=== PATIENT | male | born 1965 | race Caucasian/White ===

== ENCOUNTER 2016-11-22 18:42 | Outpatient (CLI) | payer MEDICAID | END 2016-11-22 18:43 | disposition critical access hospital (66) | DX: R53.1 Weakness (principal); R11.2 Nausea with vomiting, unspecified; R19.5 Other fecal abnormalities; M54.2 Cervicalgia | CPT/HCPCS: A0425; A0427 ==

== ENCOUNTER 2016-11-22 18:47 | Inpatient (IN) | payer MEDICAID ==
[2016-11-22] MEDS ORDERED: PANTOPRAZOLE 40 MG VIAL IVP STA ×2 (19:12→19:59)
[2016-11-22] MEDS ORDERED: SODIUM CHLORIDE 0.9% 1,000 ML IV ONE (19:12)
[2016-11-22] MEDS ORDERED: PANTOPRAZOLE 40 MG VIAL ONE ×2 (19:15→20:09)
[2016-11-22 19:21] LABS: BASOPHILS % (AUTO) 0.3 %; EOSINOPHILS # (AUTO) 0.1 10^3/uL (0.0-0.7); HCT - HEMATOCRIT 28.3 % (42.0-52.0); HGB - HEMOGLOBIN 9.6 g/dL (14.0-18.0); LYMPHOCYTES % (AUTO) 22.4 %; MEAN CORPUSCULAR HEMOGLOBIN 31.1 pg (27.0-31.0); MEAN CORPUSCULAR HGB CONC 34.1 g/dL (32.0-36.0); MEAN CORPUSCULAR VOLUME 91.2 fL (80.0-94.0); MEAN PLATELET VOLUME 7.6 fL (7.4-11.4); MONOCYTES # (AUTO) 0.7 10^3/uL (0.0-1.0); MONOCYTES % (AUTO) 7.5 %; NEUTROPHILS # (AUTO) 6.1 10^3/uL (1.5-6.6); NEUTROPHILS % (AUTO) 68.8 %; RED CELL DISTRIBUTION WIDTH 12.6 % (12.0-15.0); UNCORRECTED WHITE BLOOD COUNT 8.8 x10^3/uL; WHITE BLOOD COUNT 8.8 x10^3/uL (4.8-10.8)
[2016-11-22 19:32] LABS: INR 1.2 (0.8-1.2); PT - PROTHROMBIN TIME 13.9 secs (9.9-12.6)
--- NOTE | 2016-11-22 19:33 | ED Physician Documentation ---
History of Present Illness - Stated complaint Stated Complaint: HEMATEMESIS - Chief complaint Chief Complaint: General - History obtained from History obtained from: Patient, EMS, Police - History of Present Illness Timing: Other (He has a history of IV drug abuse but not alcohol abuse or known liver disease. He had melena 2 days ago and today had coffee-ground emesis with diffuse abdominal pain. Feels like a burning. No history of ulcer or GI bleeding or abdominal surgeries.) Review of Systems Ten Systems: 10 systems reviewed and negative Constitutional: denies: Fever, Chills Throat: denies: Dental pain / toothache, Sore throat Cardiac: denies: Chest pain / pressure, Palpitations Respiratory: denies: Dyspnea, Cough PD PAST MEDICAL HISTORY - Past Medical History Past Medical History: Yes Psych: Depression - Past Surgical History Past Surgical History: No - Present Medications Home Medications: Ambulatory Orders Medication Instructions Recorded Confirmed Clindamycin [Cleocin] 300 mg PO Q6H 10 Days 07/14/15 FLUoxetine [PROzac] 10 mg PO DAILY 07/14/15 07/14/15 Oxycodone HCl/Acetaminophen 1 - 2 tab PO Q4H PRN #15 tablet 07/14/15 [Percocet 5-325 mg Tablet] - Allergies Allergies/Adverse Reactions: Allergies Allergy/AdvReac Type Severity Reaction Status Date / Time codeine AdvReac Emesis Verified 07/14/15 15:38 - Social History Does the pt smoke?: No Smoking Status: Never smoker Does the pt drink ETOH?: No Does the pt have substance abuse?: No - Family History Family history: reports: Non contributory - Immunizations Immunizations are current?: Yes - POLST Patient has POLST: No PD ED PE NORMAL - Vitals Vital signs reviewed: Yes - General General: Alert and oriented X 3, No acute distress, Other (pale) - HEENT HEENT: PERRL, EOMI - Neck Neck: Supple, no meningeal sign, No bony TTP - Cardiac Cardiac: RRR, No murmur - Respiratory Respiratory: No respiratory distress, Clear bilaterally - Abdomen Abdomen: Normal bowel sounds, Soft, Non tender - Rectal Rectal: Other (no stool in vault, but lube returns guaiac positive) - Derm Derm: Normal color, Warm and dry - Extremities Extremities: No deformity, No tenderness to palpate, No edema, No calf tenderness / cord - Neuro Neuro: Alert and oriented X 3, Normal speech - Psych Psych: Normal mood, Normal affect Results - Vitals Vitals: Vital Signs - 24 hr 11/22/16 11/22/16 18:49 19:24 Temperature 36.8 C Heart Rate 99 96 Respiratory 18 16 Rate Blood Pressure 104/77 112/67 O2 Saturation 100 100 Oxygen O2 Source Room air - EKG (time done) 2026 Rate: Rate (enter#) (89) Rhythm: NSR [place]: Normal Intervals: Normal [place] QRS: Normal Ischemia: Normal ST segments Computer interpretation: Agree with computer - Labs Labs: Laboratory Tests 11/22/16 11/22/16 11/22/16 18:54 18:54 18:54 WBC 8.8 RBC 3.10 L Hgb 9.6 L Hct 28.3 L MCV 91.2 MCH 31.1 H MCHC 34.1 RDW 12.6 Plt Count 229 MPV 7.6 Neut # 6.1 Lymph # 2.0 [place] # 0.7 Eos # 0.1 Baso # 0.0 Absolute Nucleated RBC 0.00 Nucleated RBCs 0.0 PT 13.9 H INR 1.2 Sodium 135 Potassium 4.7 Chloride 103 Carbon Dioxide 22 Anion Gap 10.0 BUN 47 H Creatinine 1.1 Estimated GFR (MDRD) 71 L Glucose 233 H Calcium 7.9 L Total Bilirubin 0.7 AST 152 H ALT 308 H Alkaline Phosphatase 98 Total Protein 5.5 L Albumin 2.9 L Globulin 2.6 Albumin/Globulin Ratio 1.1 Lipase 17 L Blood Type Blood Type Recheck Antibody Screen Crossmatch IS Only 11/22/16 11/22/16 18:54 19:30 WBC RBC Hgb Hct MCV MCH MCHC RDW Plt Count MPV Neut # Lymph # [place] # Eos # Baso # Absolute Nucleated RBC Nucleated RBCs PT INR Sodium Potassium Chloride Carbon Dioxide Anion Gap BUN Creatinine Estimated GFR (MDRD) Glucose Calcium Total Bilirubin AST ALT Alkaline Phosphatase Total Protein Albumin Globulin Albumin/Globulin Ratio Lipase Blood Type A POSITIVE Blood Type Recheck A POSITIVE Antibody Screen NEGATIVE Crossmatch IS Only See Detail PD MEDICAL DECISION MAKING - ED course ED course: 51yo male with UGI bleed. Hemodynamics ok on arrival, Hgb 9.6. Spoke with Dr Solorzano who will consult. Call to the night hospitalist at [phone]. Departure - Departure Disposition: 66 [facility] DC/Xfer Clinical Impression: Upper GI bleed Condition: Serious
[2016-11-22 19:47] LABS: ALBUMIN/GLOBULIN RATIO 1.1 (1.0-2.2); BILIRUBIN,TOTAL 0.7 mg/dL (0.2-1.0); CREATININE 1.1 mg/dL (0.6-1.2); TOTAL PROTEIN 5.5 g/dL (6.7-8.2)
[2016-11-22 19:48] LABS: CALCIUM 7.9 mg/dL (8.5-10.3); POTASSIUM 4.7 mmol/L (3.5-5.0)
[2016-11-22] MEDS ORDERED: PANTOPRAZOLE 80 MG in SODIUM CHLORIDE 0.9% 100ML 100 ML IV STA (19:59)
[2016-11-22] MEDS ORDERED: HYDROmorphone 1 MG/ML SYRINGE IVP STA (20:09)
[2016-11-22] MEDS ORDERED: ONDANSETRON 4 MG/2 ML VIAL IVP STA (20:09)
[2016-11-22] MEDS ORDERED: ALBUTEROL NEB 2.5 MG/3 ML INH PRN (20:16)
[2016-11-22] MEDS ORDERED: ONDANSETRON 4 MG/2 ML VIAL IVP PRN (20:16)
[2016-11-22] MEDS ORDERED: MORPHINE 2 MG/ML SYRINGE IVP PRN (20:16)
[2016-11-22] MEDS ORDERED: PHYTONADIONE 10 MG/ML AMP SUBQ SCH (20:27)
[2016-11-22 21:22] LABS: HEMOGLOBIN A1C 0.47 g/dL
[2016-11-22] MEDS: SODIUM CHLORIDE 0.9% 1,000 ML IV SCH (22:30)
[2016-11-23] MEDS: PANTOPRAZOLE 80 MG in SODIUM CHLORIDE 0.9% 100ML 100 ML IV SCH ×2 (00:08→06:14)
[2016-11-23] MEDS: INSULIN REGULAR HUMAN 100 UNIT/1 ML 10 ML MDV SUBQ SCH ×4 (00:09→18:14)
[2016-11-23] MEDS: SODIUM CHLORIDE FLUSH 0.9% 10 ML SYRINGE IVP SCH ×4 (00:11→21:23)
[2016-11-23 01:12] LABS: BILIRUBIN,URINE NEGATIVE (NEGATIVE)
[2016-11-23 01:14] LABS: UA CHARGE (STRIP ONLY) YES; UR CULTURE IF IND NOT INDICATED
[2016-11-23 05:56] LABS: BASOPHILS # (AUTO) 0.1 10^3/uL (0.0-0.1); BASOPHILS % (AUTO) 0.5 %; EOSINOPHILS % (AUTO) 0.3 %; HCT - HEMATOCRIT 23.5 % (42.0-52.0); LYMPHOCYTES # (AUTO) 2.2 10^3/uL (1.5-3.5); LYMPHOCYTES % (AUTO) 21.1 %; MEAN CORPUSCULAR HGB CONC 34.2 g/dL (32.0-36.0); MEAN CORPUSCULAR VOLUME 90.8 fL (80.0-94.0); MEAN PLATELET VOLUME 7.3 fL (7.4-11.4); MONOCYTES # (AUTO) 0.7 10^3/uL (0.0-1.0); MONOCYTES % (AUTO) 6.2 %; NEUTROPHILS # (AUTO) 7.6 10^3/uL (1.5-6.6); NEUTROPHILS % (AUTO) 71.9 %; RED BLOOD COUNT 2.59 10^6/uL (4.70-6.10); RED CELL DISTRIBUTION WIDTH 12.6 % (12.0-15.0); UNCORRECTED WHITE BLOOD COUNT 10.6 x10^3/uL; WHITE BLOOD COUNT 10.6 x10^3/uL (4.8-10.8)
[2016-11-23 06:20] LABS: ALBUMIN/GLOBULIN RATIO 1.2 (1.0-2.2); BILIRUBIN,TOTAL 0.8 mg/dL (0.2-1.0); CALCIUM 7.8 mg/dL (8.5-10.3); CREATININE 0.8 mg/dL (0.6-1.2); POTASSIUM 4.4 mmol/L (3.5-5.0); TOTAL PROTEIN 5.3 g/dL (6.7-8.2)
[2016-11-23] MEDS: SODIUM CHLORIDE 0.9% 1,000 ML IV SCH ×3 (06:42→21:23)
[2016-11-23] MEDS: LORazepam 2 MG/ML SYRINGE IVP PRN ×3 (10:28→21:23)
[2016-11-23] MEDS ORDERED: LIDOCAINE-MPF 2% 5 ML VIAL IM ONE (10:30)
[2016-11-23] MEDS ORDERED: MIDAZOLAM 2 MG/2 ML VIAL IVP ONE (10:30)
[2016-11-23] MEDS ORDERED: PROPOFOL 200 MG/20 ML VIAL IVP ONE (10:30)
[2016-11-23] MEDS ORDERED: BENZOCAINE/TETRACAINE/BUTAMBEN SPRAY 56 GM TOP ONE (10:40)
[2016-11-23] MEDS ORDERED: SODIUM CHLORIDE 0.9% 1,000 ML IV ONE (10:45)
--- NOTE | 2016-11-23 11:14 | Ultrasound Preliminary Report ---
Exam: US Abdomen Complete IMPRESSION: Upper normal size echogenic liver consistent with fatty infiltration. Questionable lobular mass 6.2 cm in diameter in the caudate lobe, new from earlier study. CT or MRI s can of the abdomen without and with IV contrast, liver mass protocol, recommended for further assessm ent. Remainder of the visualized abdomen unremarkable. [facility] SITE ID: [id number]
--- NOTE | 2016-11-23 11:17 | Ultrasound Report ---
EXAM: ABDOMEN ULTRASOUND EXAM DATE: 11/23/2016 08:05 AM. CLINICAL HISTORY: Elevated liver function tests in a 51-year-old male. COMPARISON: 10/30/2006. TECHNIQUE: Real-time scanning was performed with static images obtained. FINDINGS: Liver: Diffusely moderately echogenic liver consistent with fatty infiltration. Small benign-appearin g 6 mm cyst in the left lobe. Questionable enlarged caudate lobe with possible mass 4.9 x 3.6 x 6.2 c m. Upper normal size at 16.5 cm. Main portal vein flow: Hepatopetal. Gallbladder: Normal. No stones, wall thickening, or sonographic Kuhn's sign. Biliary System: Common bile duct measures 4.8 mm. No intrahepatic or extrahepatic ductal dilatation. Pancreas: Visualized portion is unremarkable. Kidneys: Right: 10.1 cm longitudinally. Normal. No contour-deforming mass, stones, or hydronephrosis. Left: 13.1 cm longitudinally. Normal. Duplicated collecting system, a normal variant, accounting for increased size. No contour-deforming mass, stones, or hydronephrosis. Spleen: 9.3 cm. Normal in size and echotexture. Aorta and Inferior Vena Cava: Unremarkable. Other: No free fluid or lymphadenopathy. IMPRESSION: Upper normal size echogenic liver consistent with fatty infiltration. Questionable lobular mass 6.2 cm in diameter in the caudate lobe, new from earlier study. CT or MRI s can of the abdomen without and with IV contrast, liver mass protocol, recommended for further assessm ent. Remainder of the visualized abdomen unremarkable. [facility] Referring Provider Line: [phone] SITE ID: [id number]
[2016-11-23] MEDS ORDERED: PANTOPRAZOLE 80 MG in SODIUM CHLORIDE 0.9% 100ML 100 ML IV SCH (16:00)
--- NOTE | 2016-11-23 16:16 | PROVIDER PROGRESS NOTE ---
Assessment/Plan - Problem List (1) Upper GI bleed Assessment/Plan: He has not had further hematemesis or melana. He had an EGD this am. (2) Anemia associated with acute blood loss Assessment/Plan: He is getting two units of PRBCs this afternoon. (3) Duodenitis hemorrhagic Assessment/Plan: EGD showed nonbleeding duodenitis. It is the most likely site. added Carafate to the regimen - Current Meds Current Meds: Current Medications Generic Name Dose Route Start Last Admin Trade Name Freq PRN Reason Stop Dose Admin Sodium Chloride 1,000 mls @ 125 mls/hr 11/22/16 21:00 11/23/16 13:54 Normal Saline 0.9% IV 125 mls/hr .Q8H ELIAS Administration Insulin Human Regular 1 - 5 unit 11/23/16 00:00 11/23/16 12:07 Novolin R SUBQ Not Given Q6HR ELIAS Protocol Lorazepam 1 mg 11/23/16 09:17 11/23/16 15:27 Ativan Inj IVP 1 mg Q4HR PRN Administration Anxiety Sodium Chloride 10 ml 11/22/16 22:00 11/23/16 09:41 Normal Saline Flush 0.9% IVP 10 ml Q8HR ELIAS Administration - Lab Result Fish Bone Diagrams: 11/23/16 13:25 11/23/16 05:45 - Additional Planning My Orders: My Active Orders 11/23/16 09:17 Transfuse RBCs Leukoreduced [RC] ONCE LORazepam INJ [Ativan Inj] 1 mg IVP Q4HR PRN 11/23/16 16:00 Sucralfate [Carafate] 1 gm PO 0700,1100,1600,2200 11/23/16 Dinner Soft (Low Fiber) Diet [DIET] 11/24/16 05:00 CBC - COMP BLD CT W/AUTO DIFF [HEME] DAILYLAB COMPREHENSIVE METABOLIC PANEL [CHEM] DAILYLAB 11/25/16 05:00 CBC - COMP BLD CT W/AUTO DIFF [HEME] DAILYLAB COMPREHENSIVE METABOLIC PANEL [CHEM] DAILYLAB 11/26/16 05:00 CBC - COMP BLD CT W/AUTO DIFF [HEME] DAILYLAB COMPREHENSIVE METABOLIC PANEL [CHEM] DAILYLAB Subjective - Subjective Patient Reports: Feeling Better, Resting Comfortably Nursing Reports: No Complaints Objective Vital Signs: Vital Signs - 24 hr 11/22/16 11/22/16 11/22/16 20:30 21:00 22:00 Temperature 97.5 C H 37.1 C Heart Rate 91 Heart Rate [ 100 100 Apical] Respiratory 16 20 18 Rate Blood Pressure 110/66 Blood Pressure 121/66 127/61 [Right Brachial artery] O2 Saturation 99 99 99 11/22/16 11/23/16 11/23/16 23:00 00:00 01:00 Temperature 37 C Heart Rate Heart Rate [ 94 96 92 Apical] Respiratory 18 18 16 Rate Blood Pressure Blood Pressure 132/65 H 121/59 L 125/65 [Right Brachial artery] O2 Saturation 99 11/23/16 11/23/16 11/23/16 02:00 03:00 04:00 Temperature Heart Rate Heart Rate [ 96 94 84 Apical] Respiratory 16 15 8 L Rate Blood Pressure Blood Pressure 120/70 120/70 113/61 [Right Brachial artery] O2 Saturation 98 11/23/16 11/23/16 11/23/16 05:00 06:00 07:00 Temperature Heart Rate Heart Rate [ 75 82 84 Apical] Respiratory 16 8 L 18 Rate Blood Pressure Blood Pressure 132/67 H 131/64 H 116/66 [Right Brachial artery] O2 Saturation 98 11/23/16 11/23/16 11/23/16 08:00 09:00 10:00 Temperature 37.3 C Heart Rate Heart Rate [ 88 88 80 Apical] Respiratory 15 15 18 Rate Blood Pressure Blood Pressure 128/59 L 137/85 H 117/67 [Right Brachial artery] O2 Saturation 99 91 L 98 11/23/16 11/23/16 11/23/16 12:00 13:00 14:00 Temperature 37.2 C Heart Rate Heart Rate [ 76 76 77 Apical] Respiratory 24 17 19 Rate Blood Pressure Blood Pressure 105/62 106/57 L 100/57 L [Right Brachial artery] O2 Saturation 99 98 92 11/23/16 15:00 Temperature Heart Rate Heart Rate [ 87 Apical] Respiratory 24 Rate Blood Pressure Blood Pressure 110/56 L [Right Brachial artery] O2 Saturation 97 Oxygen O2 Source Room air I&O (Last 24 Hrs): Intake and Output Totals x24h 11/21/16 11/22/16 11/23/16 23:59 23:59 23:59 Intake Total 270 1720 Output Total 1175 Balance 270 545 General: Alert, Oriented x3, Cooperative HEENT: PERRLA, EOMI Neck: No JVD, No thyromegaly Neuro: Alert, Oriented Times 3 Cardiovascular: Regular rate, No murmurs Respiratory: Chest non-tender, No respiratory distress, Breath sounds nml, Wheezes Abdomen: Normal bowel sounds, Soft, No tenderness Skin: No rashes, No breakdown - Results Results: Laboratory Results WBC 10.6 x10^3/uL (4.8-10.8) 11/23/16 05:45 RBC 2.59 10^6/uL (4.70-6.10) L 11/23/16 05:45 Hgb 8.0 g/dL (14.0-18.0) L 11/23/16 05:45 Hct 25.2 % (42.0-52.0) L 11/23/16 13:25 MCV 90.8 fL (80.0-94.0) 11/23/16 05:45 MCH 31.0 pg (27.0-31.0) 11/23/16 05:45 MCHC 34.2 g/dL (32.0-36.0) 11/23/16 05:45 RDW 12.6 % (12.0-15.0) 11/23/16 05:45 Plt Count 195 10^3/uL (130-450) 11/23/16 05:45 MPV 7.3 fL (7.4-11.4) L 11/23/16 05:45 Neut # 7.6 10^3/uL (1.5-6.6) H 11/23/16 05:45 Lymph # 2.2 10^3/uL (1.5-3.5) 11/23/16 05:45 [place] # 0.7 10^3/uL (0.0-1.0) 11/23/16 05:45 Eos # 0.0 10^3/uL (0.0-0.7) 11/23/16 05:45 Baso # 0.1 10^3/uL (0.0-0.1) 11/23/16 05:45 Absolute Nucleated RBC 0.00 x10^3/uL 11/23/16 05:45 Nucleated RBCs 0.0 /100WBC 11/23/16 05:45 PT 13.9 secs (9.9-12.6) H 11/22/16 18:54 INR 1.2 (0.8-1.2) 11/22/16 18:54 Sodium 138 mmol/L (135-145) 11/23/16 05:45 Potassium 4.4 mmol/L (3.5-5.0) 11/23/16 05:45 Chloride 108 mmol/L (101-111) 11/23/16 05:45 Carbon Dioxide 24 mmol/L (21-32) 11/23/16 05:45 Anion Gap 6.0 (6-13) 11/23/16 05:45 BUN 35 mg/dL (6-20) H 11/23/16 05:45 Creatinine 0.8 mg/dL (0.6-1.2) 11/23/16 05:45 Estimated GFR (MDRD) 102 (>89) 11/23/16 05:45 Glucose 113 mg/dL (70-100) H 11/23/16 05:45 Glycated Hemoglobin 6.5 % (4.6-6.2) H 11/22/16 18:50 Estim Average Glucose 140 (70-100) H 11/22/16 18:50 Calcium 7.8 mg/dL (8.5-10.3) L 11/23/16 05:45 Total Bilirubin 0.8 mg/dL (0.2-1.0) 11/23/16 05:45 AST 114 IU/L (10-42) H 11/23/16 05:45 ALT 270 IU/L (10-60) H 11/23/16 05:45 Alkaline Phosphatase 88 IU/L (42-121) 11/23/16 05:45 Troponin I < 0.04 ng/mL (<0.49) 11/22/16 20:45 Total Protein 5.3 g/dL (6.7-8.2) L 11/23/16 05:45 Albumin 2.9 g/dL (3.2-5.5) L 11/23/16 05:45 Globulin 2.4 g/dL (2.1-4.2) 11/23/16 05:45 Albumin/Globulin Ratio 1.2 (1.0-2.2) 11/23/16 05:45 Lipase 17 U/L (22-51) L 11/22/16 18:54 Urine Color YELLOW 11/23/16 01:00 Urine Clarity CLEAR (CLEAR) 11/23/16 01:00 Urine pH 6.0 PH (5.0-7.5) 11/23/16 01:00 Ur Specific [place] 1.020 (1.002-1.030) 11/23/16 01:00 Urine Protein NEGATIVE mg/dL (NEGATIVE) 11/23/16 01:00 Urine Glucose (UA) NEGATIVE mg/dL (NEGATIVE) 11/23/16 01:00 Urine Ketones NEGATIVE mg/dL (NEGATIVE) 11/23/16 01:00 Urine Occult Blood NEGATIVE (NEGATIVE) 11/23/16 01:00 Urine Nitrite NEGATIVE (NEGATIVE) 11/23/16 01:00 Urine Bilirubin NEGATIVE (NEGATIVE) 11/23/16 01:00 Urine Urobilinogen 0.2 (NORMAL) E.U./dL (NORMAL) 11/23/16 01:00 Ur Leukocyte Esterase NEGATIVE (NEGATIVE) 11/23/16 01:00 Ur Microscopic Review NOT INDICATED 11/23/16 01:00 Urine Culture Comments NOT INDICATED 11/23/16 01:00 Blood Type A POSITIVE 11/22/16 18:54 Blood Type Recheck A POSITIVE 11/22/16 19:30 Antibody Screen NEGATIVE 11/22/16 18:54 Crossmatch IS Only See Detail 11/22/16 18:54
[2016-11-23] MEDS: SUCRALFATE 1 GM/10 ML UDC PO SCH ×2 (16:24→21:23)
[2016-11-23 20:18] LABS: HCT - HEMATOCRIT 24.4 % (42.0-52.0); HGB - HEMOGLOBIN 8.3 g/dL (14.0-18.0); MEAN CORPUSCULAR HEMOGLOBIN 30.5 pg (27.0-31.0); MEAN CORPUSCULAR VOLUME 89.7 fL (80.0-94.0); RED BLOOD COUNT 2.72 10^6/uL (4.70-6.10); RED CELL DISTRIBUTION WIDTH 13.6 % (12.0-15.0); WHITE BLOOD COUNT 15.8 x10^3/uL (4.8-10.8)
[2016-11-23] MEDS: PANTOPRAZOLE 40 MG TABLET PO SCH (21:23)
--- NOTE | 2016-11-24 02:59 | HISTORY & PHYSICAL EXAMINATION ---
DATE OF ADMISSION: 11/22/2016 PRIMARY CARE PROVIDER: RIGO Nuno CHIEF COMPLAINT: Black tarry stool and vomiting coffee grounds-like material. HISTORY OF PRESENT ILLNESS: This is a 51-year-old male who is currently in [facility] over the past 2 months and has had 2 days of melena, approximately 1-2 stools daily, and also had today coffee-cary und emesis x2. He denies any chest pain, denies any shortness of breath; does admit to upper abdomin al pain today and notes no prior history of similar. He apparently has used IV methamphetamine in e past but not currently, and denies alcohol, but per report that ER got, patient does use alcohol, i n the past, but did not go through any alcohol withdrawal while in custodial. Of note, his hematocrit upon admission here is 28.3, hemoglobin 9.6; do not have any labs for compari son; and of note, his glucose is 233, total bilirubin is 0.7, AST 152, ALT 308, alkaline phosphatase 98. INR is 1.2. PT 13.9. PAST MEDICAL HISTORY 1. History of IV methamphetamine abuse. 2. History of depression. MEDICATIONS UPON ADMISSION: Fluoxetine 10 mg p.o. daily. ALLERGIES: CODEINE, CAUSES EMESIS. HABITS SMOKING: Never. ALCOHOL: Patient denies, although again, per half-way report, patient does have a history of alcohol i ngestion. FAMILY MEDICAL HISTORY: No history of diabetes or coronary artery disease. REVIEW OF SYSTEMS: Patient is unaware of having history of viral hepatitis; not aware that he has be en checked. Denies any fevers or chills. Denies cough. All other review of systems are negative ex cept as in HPI. PHYSICAL EXAMINATION VITAL SIGNS: Temperature is afebrile. Heart rate is 91. Blood pressure 110/66. Respiratory rate i s 16. Room air sat 99%. CONSTITUTIONAL: A middle-aged male who appears older than his stated age. HEENT: Head normocephalic, atraumatic. Mouth: Poor dentition. NECK: No adenopathy. Carotids 2+/4 without bruits. CHEST: Clear to auscultation. COR: Regular rate and rhythm. S1, S2 without murmur. ABDOMEN: Soft. There is tenderness over the epigastrium down to just above the umbilicus. No rebou nd, no guarding. Bowel sounds are present. EXTREMITIES: Exam reveals no pedal edema. SKIN: No rashes. PSYCHOLOGIC: Mood and affect are appropriate. NEUROLOGIC: Alert and oriented x3. Motor strength is intact bilaterally. STUDIES Labs as above, also to include EKG, pending; troponin, pending; viral hepatitis panel, pending. Sodium 135, potassium 4.7, chloride 103, bicarb 22, BUN 47, creatinine 1.1, calculated GFR 71, glucos e 233, calcium 7.9, total bilirubin 0.7, AST 152, ALT 308, alkaline phosphatase 98, total protein 5.5 , albumin 2.9, lipase 17. White count 8.8, hemoglobin 9.6, hematocrit 28.3, MCV 91.2. Platelets 229 with neutrophils 6.1. UA: Pending at time of this dictation. ASSESSMENT AND PLAN 1. Upper gastrointestinal bleed, acute, present on admission. Check serial hematocrits, 2 large-bor e IVs. Patient has been typed and crossed per emergency room MD. We will also give vitamin K, altho ugh INR is in the normal range but toward the higher end. General Surgery is notified regarding this patient by ER MD, placed on IV Protonix drip. Patient was given a bolus of Protonix in the emergenc y room. 2. Elevated LFTs, question chronicity, present on admission. We will go ahead and check viral hepat itis panel, check abdominal ultrasound. It is the weekend, so we will not be able to get records fro m the pending sale to [facility]. 3. Deep venous thrombosis prophylaxis. We will use SCDs and, given GI bleed, we will not give subcu taneous anticoagulant. 4. Code status: Patient is FULL CODE. Time spent 60 minutes. JOB #: [id number] EXT JOB #:[id number]
--- NOTE | 2016-11-24 04:36 | CONSULTATION NOTE ---
DATE OF CONSULTATION: 11/23/2016 00:00:00 REASON FOR CONSULTATION: Gastrointestinal bleed. HISTORY OF PRESENT ILLNESS: This is a 51-year-old gentleman who presents to the emergency department from [facility] for hematemesis. He states that approximately 3 days ago, he noticed dark, tarry stools and began feeling lightheaded and was told he had the flu. He had difficulty keeping food down and vomited a tray of potatoes and then had a syncopal episode while trying to have a bowel movement. When he woke up, he felt nauseous and had a subsequent episode of coffee-ground emesis. He was subsequently brought to the emergency department. Upon evaluation in the emergency department, he was noted to be hemodynamically stable with a heart rate of 75 and a systolic blood pressure of 132. His hemoglobin and hematocrit were noted to be 9.6 and 28.3. A stool guaiac was performed, which was positive. He was subsequently admitted to the ICU by the Medical Service. Serial H and H's have been performed, and this morning his H and H is now 8.0/23.5. Upon my evaluation of the patient, he is a poor historian, although he does tell me that for the past 2-3 years, he has had difficulty swallowing steak and rice and feels like it gets stuck in the distal part of his esophagus. He denies any dysphagia to liquids. He also complains of odynophagia with these types of solids. He states that he was a heavy drinker in the past, for approximately 5 years, and had alcohol dependence, but for the past year he has not had any alcohol. He does also have a history of substance abuse. Currently he is incarcerated and has been incarcerated for the past month. He denies any NSAID abuse. He denies any history of GERD symptoms. To his knowledge, he has never had an EGD or colectomy. PAST MEDICAL HISTORY Significant for: 1. Anxiety. 2. Depression. PAST SURGICAL HISTORY: None. HOME MEDICATIONS 1. Sildenafil 20 mg p.o. daily. 2. Paxil 40 mg p.o. daily. ALLERGIES TO MEDICATIONS: CODEINE. SOCIAL HISTORY: The patient is currently incarcerated. He denies tobacco use. He has a history of alcohol abuse as stated, as well as substance abuse. PHYSICAL EXAMINATION VITAL SIGNS: Temperature is 37.3, blood pressure 137/85, heart rate of 88, respiratory rate 15, O2 saturation is 91% on room air. His BMI is 27.4. GENERAL: He is awake, alert, oriented x3, in no acute distress. He is of average build. CARDIOVASCULAR: Regular rate and rhythm. CHEST: Clear to auscultation bilaterally with no rhonchi or wheezing. ABDOMEN: Soft, nondistended, and nontender to palpation. EXTREMITIES: Not edematous, and well perfused. He does appear slightly pale. LABORATORY VALUES: White blood cell count is 10.6, hemoglobin 8.0, hematocrit 23.5, platelets 195. INR 1.2. Sodium 138, potassium 4.4, chloride 108, bicarb 24, BUN 35, creatinine 0.8. Total bilirubin 0.8, AST 114, ALT 270, alk phos 88 , albumin 2.9. ASSESSMENT: This is a 51-year-old male with likely an upper gastrointestinal bleed. PLAN: The patient will be transfused 2 units of packed red blood cells and will also subsequently be taken to the operating room under MAC sedation for an esophagogastroduodenoscopy. Differential diagnoses of his GI bleed include, but are not limited to esophageal cancer, Maira-Tejada tear, gastritis, or peptic ulcer disease. The procedure and risks involved were explained to the patient, including but not limited to bleeding and perforation. He understands all the above and agrees to proceed with the procedure. JOB #: [id number] EXT JOB #:[id number] WILLIAM
[2016-11-24] MEDS: SODIUM CHLORIDE 0.9% 1,000 ML IV SCH (05:30)
[2016-11-24 05:35] LABS: BASOPHILS % (AUTO) 0.3 %; EOSINOPHILS # (AUTO) 0.3 10^3/uL (0.0-0.7); EOSINOPHILS % (AUTO) 2.4 %; HCT - HEMATOCRIT 21.4 % (42.0-52.0); HGB - HEMOGLOBIN 7.3 g/dL (14.0-18.0); LYMPHOCYTES # (AUTO) 2.3 10^3/uL (1.5-3.5); LYMPHOCYTES % (AUTO) 20.5 %; MEAN CORPUSCULAR HEMOGLOBIN 30.3 pg (27.0-31.0); MEAN CORPUSCULAR HGB CONC 34.2 g/dL (32.0-36.0); MEAN CORPUSCULAR VOLUME 88.8 fL (80.0-94.0); MEAN PLATELET VOLUME 6.9 fL (7.4-11.4); MONOCYTES # (AUTO) 0.8 10^3/uL (0.0-1.0); MONOCYTES % (AUTO) 7.2 %; NEUTROPHILS # (AUTO) 7.8 10^3/uL (1.5-6.6); NEUTROPHILS % (AUTO) 69.6 %; RED BLOOD COUNT 2.42 10^6/uL (4.70-6.10); RED CELL DISTRIBUTION WIDTH 13.4 % (12.0-15.0); UNCORRECTED WHITE BLOOD COUNT 11.2 x10^3/uL; WHITE BLOOD COUNT 11.2 x10^3/uL (4.8-10.8)
[2016-11-24 05:44] LABS: BILIRUBIN,TOTAL 0.4 mg/dL (0.2-1.0); CALCIUM 7.7 mg/dL (8.5-10.3); CREATININE 0.8 mg/dL (0.6-1.2); TOTAL PROTEIN 4.7 g/dL (6.7-8.2)
[2016-11-24] MEDS: SUCRALFATE 1 GM/10 ML UDC PO SCH ×4 (06:34→21:32)
[2016-11-24] MEDS: SODIUM CHLORIDE FLUSH 0.9% 10 ML SYRINGE IVP SCH ×3 (06:34→21:32)
[2016-11-24] MEDS: INSULIN ASPART 300 UNIT/3 ML PEN SUBQ SCH ×4 (07:34→20:40)
--- NOTE | 2016-11-24 08:35 | PROVIDER PROGRESS NOTE ---
Assessment/Plan - Problem List (1) Upper GI bleed Assessment/Plan: EGd showed only non bleeding duodenitis. However he has lost further blood and again needs 2 units of blood. He will also get FFP (2) Anemia associated with acute blood loss Assessment/Plan: See above discussion. Will give 2 additional units of PRBCs. (3) Duodenitis hemorrhagic Assessment/Plan: He is on Protonix and Carafate. Will continue to monitor. - Current Meds Current Meds: Current Medications Generic Name Dose Route Start Last Admin Trade Name Freq PRN Reason Stop Dose Admin Insulin Aspart 1 - 5 unit 11/24/16 08:00 11/24/16 07:34 Novolog SUBQ Not Given 0800,1200,1700,2100 ELIAS Protocol Lorazepam 1 mg 11/23/16 09:17 11/23/16 21:23 Ativan Inj IVP 1 mg Q4HR PRN Administration Anxiety Pantoprazole Sodium 40 mg 11/23/16 21:00 11/23/16 21:23 Protonix PO 40 mg BID ELIAS Administration Sodium Chloride 10 ml 11/22/16 22:00 11/24/16 06:34 Normal Saline Flush 0.9% IVP 10 ml Q8HR ELIAS Administration Sucralfate 1 gm 11/23/16 16:00 11/24/16 06:34 Carafate PO 1 gm 0700,1100,1600,2200 ELIAS Administration - Lab Result Fish Bone Diagrams: 11/24/16 05:25 11/24/16 05:25 - Additional Planning My Orders: My Active Orders 11/23/16 09:17 Transfuse RBCs Leukoreduced [RC] ONCE LORazepam INJ [Ativan Inj] 1 mg IVP Q4HR PRN 11/23/16 16:00 Sucralfate [Carafate] 1 gm PO 0700,1100,1600,2200 11/23/16 21:00 Pantoprazole [Protonix] 40 mg PO BID 11/23/16 Dinner Soft (Low Fiber) Diet [DIET] 11/24/16 07:15 Transfuse RBCs Leukoreduced [RC] ONCE 11/24/16 07:55 Vital Signs [RC] Q8HR 11/25/16 05:00 CBC - COMP BLD CT W/AUTO DIFF [HEME] DAILYLAB COMPREHENSIVE METABOLIC PANEL [CHEM] DAILYLAB 11/26/16 05:00 CBC - COMP BLD CT W/AUTO DIFF [HEME] DAILYLAB COMPREHENSIVE METABOLIC PANEL [CHEM] DAILYLAB Subjective - Subjective Patient Reports: Feeling Better, Resting Comfortably, No Complaints Nursing Reports: No Complaints Objective Vital Signs: Vital Signs - 24 hr 11/23/16 11/23/16 11/23/16 09:00 10:00 12:00 Temperature 37.2 C Heart Rate [ 88 80 76 Apical] Respiratory 15 18 24 Rate Blood Pressure [Left Brachial artery] Blood Pressure 137/85 H 117/67 105/62 [Right Brachial artery] O2 Saturation 91 L 98 99 11/23/16 11/23/16 11/23/16 13:00 14:00 15:00 Temperature Heart Rate [ 76 77 87 Apical] Respiratory 17 19 24 Rate Blood Pressure [Left Brachial artery] Blood Pressure 106/57 L 100/57 L 110/56 L [Right Brachial artery] O2 Saturation 98 92 97 11/23/16 11/23/16 11/23/16 16:00 17:00 18:00 Temperature 37.1 C Heart Rate [ 98 111 H 114 H Apical] Respiratory 22 20 24 Rate Blood Pressure [Left Brachial artery] Blood Pressure 101/70 93/59 L 101/49 L [Right Brachial artery] O2 Saturation 100 97 100 11/23/16 11/23/16 11/23/16 19:00 19:24 20:00 Temperature 37.5 C Heart Rate [ 72 105 H 105 H Apical] Respiratory 20 21 20 Rate Blood Pressure [Left Brachial artery] Blood Pressure 90/68 98/55 L 114/53 L [Right Brachial artery] O2 Saturation 98 97 98 11/23/16 11/23/16 11/23/16 21:00 22:00 23:00 Temperature Heart Rate [ 92 103 H 93 Apical] Respiratory 18 20 18 Rate Blood Pressure [Left Brachial artery] Blood Pressure 101/57 L 99/56 L 106/51 L [Right Brachial artery] O2 Saturation 98 98 97 11/24/16 11/24/16 11/24/16 00:00 01:00 02:00 Temperature 37.0 C Heart Rate [ 87 89 83 Apical] Respiratory 27 H 23 23 Rate Blood Pressure 108/54 L 97/47 L 91/55 L [Left Brachial artery] Blood Pressure [Right Brachial artery] O2 Saturation 97 11/24/16 11/24/16 11/24/16 03:00 03:54 05:00 Temperature 36.9 C Heart Rate [ 79 87 76 Apical] Respiratory 25 H 17 21 Rate Blood Pressure 94/54 L 103/61 97/57 L [Left Brachial artery] Blood Pressure [Right Brachial artery] O2 Saturation 99 11/24/16 11/24/16 11/24/16 06:00 07:00 08:00 Temperature 37.2 C Heart Rate [ 87 75 88 Apical] Respiratory 27 H 11 L 18 Rate Blood Pressure 104/58 L 108/62 111/66 [Left Brachial artery] Blood Pressure [Right Brachial artery] O2 Saturation 97 Oxygen O2 Source Room air I&O (Last 24 Hrs): Intake and Output Totals x24h 11/22/16 11/23/16 11/24/16 23:59 23:59 23:59 Intake Total 270 3300 2080 Output Total 2300 1375 Balance 270 1000 705 General: Alert, Oriented x3, Cooperative HEENT: PERRLA, EOMI Neck: No JVD, No thyromegaly Neuro: Alert, Oriented Times 3 Cardiovascular: Regular rate, No murmurs Respiratory: Chest non-tender, No respiratory distress, Breath sounds nml Abdomen: Normal bowel sounds, No tenderness Extremities: No cyanosis, No edema Skin: No rashes, No breakdown - Results Results: Laboratory Results WBC 11.2 x10^3/uL (4.8-10.8) H 11/24/16 05:25 RBC 2.42 10^6/uL (4.70-6.10) L 11/24/16 05:25 Hgb 7.3 g/dL (14.0-18.0) L 11/24/16 05:25 Hct 21.4 % (42.0-52.0) L 11/24/16 05:25 MCV 88.8 fL (80.0-94.0) 11/24/16 05:25 MCH 30.3 pg (27.0-31.0) 11/24/16 05:25 MCHC 34.2 g/dL (32.0-36.0) 11/24/16 05:25 RDW 13.4 % (12.0-15.0) 11/24/16 05:25 Plt Count 131 10^3/uL (130-450) 11/24/16 05:25 MPV 6.9 fL (7.4-11.4) L 11/24/16 05:25 Neut # 7.8 10^3/uL (1.5-6.6) H 11/24/16 05:25 Lymph # 2.3 10^3/uL (1.5-3.5) 11/24/16 05:25 [place] # 0.8 10^3/uL (0.0-1.0) 11/24/16 05:25 Eos # 0.3 10^3/uL (0.0-0.7) 11/24/16 05:25 Baso # 0.0 10^3/uL (0.0-0.1) 11/24/16 05:25 Absolute Nucleated RBC 0.01 x10^3/uL 11/24/16 05:25 Nucleated RBCs 0.0 /100WBC 11/24/16 05:25 PT 13.9 secs (9.9-12.6) H 11/22/16 18:54 INR 1.2 (0.8-1.2) 11/22/16 18:54 Sodium 136 mmol/L (135-145) 11/24/16 05:25 Potassium 4.0 mmol/L (3.5-5.0) 11/24/16 05:25 Chloride 108 mmol/L (101-111) 11/24/16 05:25 Carbon Dioxide 24 mmol/L (21-32) 11/24/16 05:25 Anion Gap 4.0 (6-13) L 11/24/16 05:25 BUN 21 mg/dL (6-20) H 11/24/16 05:25 Creatinine 0.8 mg/dL (0.6-1.2) 11/24/16 05:25 Estimated GFR (MDRD) 102 (>89) 11/24/16 05:25 Glucose 117 mg/dL (70-100) H 11/24/16 05:25 Glycated Hemoglobin 6.5 % (4.6-6.2) H 11/22/16 18:50 Estim Average Glucose 140 (70-100) H 11/22/16 18:50 Calcium 7.7 mg/dL (8.5-10.3) L 11/24/16 05:25 Total Bilirubin 0.4 mg/dL (0.2-1.0) 11/24/16 05:25 AST 78 IU/L (10-42) H 11/24/16 05:25 ALT 186 IU/L (10-60) H 11/24/16 05:25 Alkaline Phosphatase 64 IU/L (42-121) 11/24/16 05:25 Troponin I < 0.04 ng/mL (<0.49) 11/22/16 20:45 Total Protein 4.7 g/dL (6.7-8.2) L 11/24/16 05:25 Albumin 2.4 g/dL (3.2-5.5) L 11/24/16 05:25 Globulin 2.3 g/dL (2.1-4.2) 11/24/16 05:25 Albumin/Globulin Ratio 1.0 (1.0-2.2) 11/24/16 05:25 Lipase 17 U/L (22-51) L 11/22/16 18:54 Urine Color YELLOW 11/23/16 01:00 Urine Clarity CLEAR (CLEAR) 11/23/16 01:00 Urine pH 6.0 PH (5.0-7.5) 11/23/16 01:00 Ur Specific [place] 1.020 (1.002-1.030) 11/23/16 01:00 Urine Protein NEGATIVE mg/dL (NEGATIVE) 11/23/16 01:00 Urine Glucose (UA) NEGATIVE mg/dL (NEGATIVE) 11/23/16 01:00 Urine Ketones NEGATIVE mg/dL (NEGATIVE) 11/23/16 01:00 Urine Occult Blood NEGATIVE (NEGATIVE) 11/23/16 01:00 Urine Nitrite NEGATIVE (NEGATIVE) 11/23/16 01:00 Urine Bilirubin NEGATIVE (NEGATIVE) 11/23/16 01:00 Urine Urobilinogen 0.2 (NORMAL) E.U./dL (NORMAL) 11/23/16 01:00 Ur Leukocyte Esterase NEGATIVE (NEGATIVE) 11/23/16 01:00 Ur Microscopic Review NOT INDICATED 11/23/16 01:00 Urine Culture Comments NOT INDICATED 11/23/16 01:00 Blood Type A POSITIVE 11/22/16 18:54 Blood Type Recheck A POSITIVE 11/22/16 19:30 Antibody Screen NEGATIVE 11/22/16 18:54 Crossmatch IS Only See Detail 11/22/16 18:54
[2016-11-24] MEDS: PANTOPRAZOLE 40 MG TABLET PO SCH ×2 (08:38→21:32)
[2016-11-24] MEDS: LORazepam 2 MG/ML SYRINGE IVP PRN ×4 (08:39→21:32)
[2016-11-24] MEDS: SODIUM CHLORIDE FLUSH 0.9% 10 ML SYRINGE IVP PRN ×2 (10:41→12:35)
[2016-11-24] MEDS ORDERED: PARoxetine 10 MG TABLET PO ONE (16:00)
[2016-11-24 16:12] LABS: HGB - HEMOGLOBIN 9.4 g/dL (14.0-18.0); MEAN CORPUSCULAR HEMOGLOBIN 30.8 pg (27.0-31.0); MEAN CORPUSCULAR HGB CONC 34.9 g/dL (32.0-36.0); MEAN CORPUSCULAR VOLUME 88.2 fL (80.0-94.0); MEAN PLATELET VOLUME 6.7 fL (7.4-11.4); RED BLOOD COUNT 3.06 10^6/uL (4.70-6.10); RED CELL DISTRIBUTION WIDTH 13.3 % (12.0-15.0); WHITE BLOOD COUNT 9.8 x10^3/uL (4.8-10.8)
[2016-11-24] MEDS ORDERED: PARoxetine 10 MG TABLET ONE (17:19)
[2016-11-25 04:48] LABS: BASOPHILS # (AUTO) 0.1 10^3/uL (0.0-0.1); BASOPHILS % (AUTO) 0.7 %; EOSINOPHILS # (AUTO) 0.4 10^3/uL (0.0-0.7); EOSINOPHILS % (AUTO) 4.1 %; HCT - HEMATOCRIT 29.1 % (42.0-52.0); LYMPHOCYTES % (AUTO) 21.7 %; MEAN CORPUSCULAR HEMOGLOBIN 30.7 pg (27.0-31.0); MEAN CORPUSCULAR HGB CONC 34.6 g/dL (32.0-36.0); MONOCYTES # (AUTO) 0.6 10^3/uL (0.0-1.0); MONOCYTES % (AUTO) 6.5 %; NEUTROPHILS # (AUTO) 6.3 10^3/uL (1.5-6.6); NUCLEATED RED BLOOD CELLS AUTO 0.1 /100WBC; RED BLOOD COUNT 3.27 10^6/uL (4.70-6.10); RED CELL DISTRIBUTION WIDTH 13.4 % (12.0-15.0); UNCORRECTED WHITE BLOOD COUNT 9.4 x10^3/uL; WHITE BLOOD COUNT 9.4 x10^3/uL (4.8-10.8)
[2016-11-25 05:00] LABS: ALBUMIN/GLOBULIN RATIO 1.1 (1.0-2.2); BILIRUBIN,TOTAL 0.4 mg/dL (0.2-1.0); CALCIUM 8.3 mg/dL (8.5-10.3); CREATININE 0.9 mg/dL (0.6-1.2); POTASSIUM 3.6 mmol/L (3.5-5.0); TOTAL PROTEIN 5.6 g/dL (6.7-8.2)
[2016-11-25 06:41] LABS: MAGNESIUM 1.7 mg/dL (1.7-2.8); PHOSPHORUS 4.1 mg/dL (2.5-4.6)
[2016-11-25] MEDS: SUCRALFATE 1 GM/10 ML UDC PO SCH (06:42)
[2016-11-25] MEDS: SODIUM CHLORIDE FLUSH 0.9% 10 ML SYRINGE IVP SCH (06:43)
--- NOTE | 2016-11-25 06:47 | Discharge Plan ---
Discharge Plan Disposition: Home, Self Care Condition: Good Prescriptions: Sucralfate [Carafate] 1 gm PO QID #120 tablet Pantoprazole [Protonix] 40 mg PO BID #60 tablet Diet: Diabetic Activity Restrictions: Activity as Tolerated Shower Restrictions: No Driving Restrictions: No Weight Bearing: Full Weight Additional Instructions or Follow Up instructions: Rasheed. It is important for you to eat more salads and fresh vegetables and some fruit. You need to loose 15 pounds over the next 6 months and maintain that new weight. The quality of your life going forward depends on better diet and exercise with you having the diabetes. Make an appt to see Elsa Gamez your PCP in the next 1-2 weeks. You need to make an appt to see Dr. Solorzano in hte next 6 weeks for a follow up for your Stomach condition. Enjoy each day. Thank you, Dr Shree Cheng Smoking: If you smoke, Please STOP! Call for help. Follow-up with: Elsa Gamez ARNP [Credentialed Staff Provider] - 1 Week ANTONIO SOLORZANO MD [Provider Admit Priv/Credential] - 6 Weeks
[2016-11-25] MEDS: LORazepam 2 MG/ML SYRINGE IVP PRN (07:32)
[2016-11-25 07:37] VITALS: BP 135/82
[2016-11-25] MEDS ORDERED: PARoxetine 10 MG TABLET PO SCH (09:00)
--- NOTE | 2016-11-25 18:08 | DISCHARGE SUMMARY ---
DATE OF ADMISSION: 11/22/2016 DATE OF DISCHARGE: 11/25/2016 PRIMARY CARE PROVIDER: RIGO Nuno. ADMISSION DIAGNOSES: 1. Epigastric intestinal bleed, acute. 2. Elevated liver enzymes. DISCHARGE DIAGNOSES: 1. Duodenitis with bleeding. 2. Epigastrium intestinal bleed secondary to #1. 3. Hepatitis improved. 4. Anxiety and depression. 5. Anemia secondary to acute bleeding present on admission, status post 4 units packed red cells. 6. New onset diabetes type 2 present on admission. HOSPITAL COURSE: The patient's initial presentation, emergency department evaluation and hospitalist plan are well described in the History and Physical, see copy of same. SUMMARY: This is a 51-year-old male who has been residing in the [facility] skilled nursing for the last 2 months, h ad today some melena and had coffee ground emesis x2. He had no chest pain, shortness of breath, but did have upper abdominal pain. The patient has a history of IV methamphetamine use and depression and he is seen in the emergency department and found to be positive for hemoccult of stool and had a hem oglobin and hematocrit of 9 and 28. The patient is also noted to have a glucose of 233 and he is admi tted to the hospital. SPECIAL PROCEDURES: The patient had an EGD done, see results of operative report. CONSULTATIONS: He had a consultation from Dr. Solorzano, see copy of the same. HOSPITAL COURSE AND MANAGEMENT: The patient the next morning had dropped his hemoglobin and hematocri t sufficiently to require 2 units of packed red cells, especially since he was having his EGD the ris k was high for continued or recurrent bleeding. The patient did not have an appropriate rise in his hemoglobin and hematocrit with the 2 units, and the next morning was lower than he had been. On the m orning of the EGD he received 2 more units of packed red cells on that day and held his hemoglobin an d hematocrit that evening and the next day without difficulty. He had no more pain, no more emesis, n o more melena. DISCHARGE EXAMINATION: VITAL SIGNS: 36.8, 73, 135/62, 19, 96% room air saturation. HEENT: Eyes: EOM's within normal limits. PERRLA. Nonicteric. Mouth and throat: Moist mucous membranes . Very poor dentition. Otherwise no abnormalities in mouth or pharynx. NECK: Supple, nontender, no lymphadenopathy, no thyromegaly. No tracheal deviation, and no bruits or JVD. CHEST: The patient's chest wall was nontender and symmetric. HEART: Normal sinus rhythm. No murmurs, rubs, or clicks. LUNGS: Clear. Good air movement bilaterally. ABDOMEN: Soft, nontender, bowel sounds are present. No hepatosplenomegaly appreciated. VASCULAR EXAM: He has got 1+ pulses through the posterior tibial bilaterally. NEURO: Cognitive intact. Cranial nerves intact. Motor intact. LABORATORY DATA: The patient has a white count of 9.8, 10 and 29.1 hemoglobin and hematocrit with elizabeth telets of 153, sodium 140, potassium 3.6, chloride 102, CO2 27, BUN 14, creatinine 0.9, glucose 138. His calcium was 8.3 and albumin was 2.9. DISCHARGE INSTRUCTIONS: ALLERGIES: CODEINE. His medications to go home are: 1. Sildenafil 20 to 40 mg daily as needed. 2. Paroxetine 40 mg a day. 3. Carafate 1 gram q.i.d. 4. Protonix 40 mg twice a day. The patient is to see Elsa Gamez in the next [address] Solorzano in the next 6 weeks for followu p on his duodenitis and consideration for a repeat EGD. The patient is urged to follow a diabetic t, but he does not take any insulin at this time. The patient is strongly advised to stop his drug ab use, to eat a healthier diet and lose another 15 pounds as he is 200, would be best to be 180 or less . The patient expressed surprise, but acknowledged the reason why. The discharge health issues are: 1. His drug abuse addictive behavior. 2. His diabetes. 3. Duodenitis. 4. Patient may be best as a candidate for a low dose metformin to start while he was making the attem pt to change his diet and lose weight, and then decide about increasing the metformin. The patient wa s not given a Glucometer initially, as his finances are stressed at this point just to get the medica tions. He also has a friend who is taking him for an evaluation for psychological care and addictive behavior services. The patient was examined on the day of discharge. Time spent in counseling the patient and collaborat ion with Case Management, discharge planning, Nursing, was 35 minutes. JOB #: [id number] EXT JOB #:[id number]
== END 2016-11-25 09:36 | disposition home or self-care (01) | DRG 378 ==
LOC: EDUNIT# → ED 18:47 → ICU 20:16 → MS 11-24 09:23
PROVIDERS: ADMIT Specialist; ATTEND Internal Medicine
PROC: 0DB68ZX Excision of Stomach, Via Natural or Artificial Opening Endoscopic, Diagnostic (ICD-10-PCS; 2016-11-23)
PROC: 0DB38ZX Excision of Lower Esophagus, Via Natural or Artificial Opening Endoscopic, Diagnostic (ICD-10-PCS; 2016-11-23)
PROC: 30233N1 Transfusion of Nonautologous Red Blood Cells into Peripheral Vein, Percutaneous Approach (ICD-10-PCS; 2016-11-23)
PROC: 0DB98ZX Excision of Duodenum, Via Natural or Artificial Opening Endoscopic, Diagnostic (ICD-10-PCS; principal; 2016-11-23 10:00)
DX: K29.81 Duodenitis with bleeding (principal); D62 Acute posthemorrhagic anemia; K75.9 Inflammatory liver disease, unspecified; F32.9 Major depressive disorder, single episode, unspecified; F41.9 Anxiety disorder, unspecified; E11.9 Type 2 diabetes mellitus without complications; Z88.5 Allergy status to narcotic agent
CPT/HCPCS: 36415; 76700; 80053; 80074; 81001; 81003; 83036; 83690; 83735; 84100; 84484; 85014; 85025; 85610; 86850; 86900; 86901; 86920; 87086; 87150; 87341; 87522; 88106; 88305; 88342; 93005; 96361; 96365; 96376; 99283; 99284; 99285

== ENCOUNTER 2017-06-24 12:55 | Outpatient (CLI) | payer MEDICAID ==
[2017-06-24 17:37] LABS: BILIRUBIN,URINE NEGATIVE (NEGATIVE); GLUCOSE, URINE (UA) NEGATIVE (NEGATIVE); KETONES,URINE (UA) NEGATIVE (NEGATIVE); LEUKOCYTE ESTERASE, URINE NEGATIVE (NEGATIVE); NITRITE,URINE NEGATIVE (NEGATIVE); OCCULT BLOOD,URINE SMALL (NEGATIVE); PROTEIN,URINE NEGATIVE (NEGATIVE); UROBILINOGEN,URINE 0.2 (NORMAL) E.U./dL (NORMAL)
[2017-06-24 17:43] LABS: CLARITY,URINE CLEAR (CLEAR)
[2017-06-24 18:04] LABS: BACTERIA,URINE None Seen /HPF (None Seen); RBC,URINE 0-5 /HPF (0-5); SQUAMOUS EPITHELIAL CELL,UR RARE Squamous (<= Few)
[2017-06-24 18:12] LABS: BASOPHILS % (AUTO) 0.9 %; EOSINOPHILS # (AUTO) 0.2 10^3/uL (0.0-0.7); EOSINOPHILS % (AUTO) 3.4 %; HGB - HEMOGLOBIN 15.1 g/dL (14.0-18.0); LYMPHOCYTES % (AUTO) 18.8 %; MEAN CORPUSCULAR HEMOGLOBIN 30.8 pg (27.0-31.0); MEAN CORPUSCULAR HGB CONC 33.6 g/dL (32.0-36.0); MEAN CORPUSCULAR VOLUME 91.7 fL (80.0-94.0); MEAN PLATELET VOLUME 7.3 fL (7.4-11.4); MONOCYTES # (AUTO) 0.5 10^3/uL (0.0-1.0); MONOCYTES % (AUTO) 9.9 %; NEUTROPHILS # (AUTO) 3.6 10^3/uL (1.5-6.6); PLT - PLATELET COUNT 226 10^3/uL (130-450); RED CELL DISTRIBUTION WIDTH 13.8 % (12.0-15.0); WHITE BLOOD COUNT 5.4 x10^3/uL (4.8-10.8)
[2017-06-24 19:15] LABS: CREATININE,URINE 110.6 mg/dL; MICROALBUMIN,URINE 6.3 mg/dL (0-300.0)
[2017-06-24 19:52] LABS: % IRON SATURATION 21 % (20-50); ALBUMIN 4.2 g/dL (3.2-5.5); ALBUMIN/GLOBULIN RATIO 1.1 (1.0-2.2); ALKALINE PHOSPHATASE 107 IU/L (42-121); ALT ALANINE AMINOTRANSFERASE 195 IU/L (10-60); AST ASPARTATE AMINOTRANSFERASE 103 IU/L (10-42); BILIRUBIN,TOTAL 0.5 mg/dL (0.2-1.0); BUN - BLOOD UREA NITROGEN 17 mg/dL (6-20); CALCIUM 8.9 mg/dL (8.5-10.3); CARBON DIOXIDE - CO2 28 mmol/L (21-32); CHLORIDE 100 mmol/L (101-111); CHOL/HDL RATIO 3.1 (<5.0); CHOLESTEROL 171 mg/dL; CREATININE 0.9 mg/dL (0.6-1.2); GFR - MDRD 89 (>89); GLUCOSE 97 mg/dL (70-100); HDL CHOLESTEROL 55 mg/dL; IRON 95 ug/dL (45-182); LDL CHOLESTEROL,CALCULATED 106 mg/dL; LDL/HDL RATIO 1.9 (<3.6); SODIUM 138 mmol/L (135-145); TOTAL IRON BINDING CAPACITY 454 ug/dL (250-450); TOTAL PROTEIN 8.2 g/dL (6.7-8.2); TRANSFERRIN 324 mg/dL (180-329); VLDL CHOLESTEROL 10 mg/dL
[2017-06-24 19:53] LABS: HB2 TOTAL 16.9 g/dL; HEMOGLOBIN A1C 0.81 g/dL; HEMOGLOBIN A1C % 6.5 % (4.6-6.2)
[2017-06-25 13:12] LABS: HEPATITIS C ANTIBODY REACTIVE (NON-REACTIVE)
[2017-06-25 13:13] LABS: HEPATITIS B SURFACE ANTIGEN NON-REACTIVE (NON-REACTIVE)
[2017-06-26 15:57] LABS: HCV RNA QNT 6.51 Log IU/mL (NOT DETECTED); HCV RNA QUANT RT PCR 3250000 IU/mL (NOT DETECTED)
== END 2017-06-24 12:56 | disposition home or self-care (01) ==
LOC: LAB.F 12:55
PROVIDERS: ATTEND Nurse Practitioner Family
DX: E11.9 Type 2 diabetes mellitus without complications (principal); R94.5 Abnormal results of liver function studies; Z13.220 Encounter for screening for lipoid disorders; K22.8 Other specified diseases of esophagus
CPT/HCPCS: 36415; 80053; 80061; 81001; 82043; 82570; 83036; 83540; 83721; 84466; 85025; 86317; 86704; 86709; 86803; 87086; 87340

== ENCOUNTER 2018-03-09 15:32 | Outpatient (CLI) | payer MEDICAID ==
[2018-03-09 19:25] LABS: HB2 TOTAL 16.8 g/dL; HEMOGLOBIN A1C 0.83 g/dL; HEMOGLOBIN A1C % 6.7 % (4.6-6.2)
== END 2018-03-09 15:33 ==
LOC: LAB.S 15:32
PROVIDERS: ATTEND Nurse Practitioner Family
DX: E11.9 Type 2 diabetes mellitus without complications (principal)
CPT/HCPCS: 36415; 83036

== ENCOUNTER 2018-05-07 23:13 | Emergency (ER) | payer MEDICAID ==
--- NOTE | 2018-05-07 23:57 | ED Physician Documentation ---
PD HPI ABD PAIN - Stated complaint Stated Complaint: ABD PX - Chief complaint Chief Complaint: Abd Pain - History obtained from History obtained from: Patient - History of Present Illness Timing - onset: How many weeks ago (2) Timing - duration: Weeks (2) Timing - details: Abrupt onset Pain level max: 8 Pain level now: 5 Quality: Pain Location: Periumbilical Radiation: Other (does not radiate) Improved by: Laying still Worsened by: Moving, Palpation Associated symptoms: No: Nausea, Vomiting Similar symptoms before: Has not had sx before Recently seen: Not recently seen - Additional information Additional information: 2 weeks ago patient sustained injury to abdomen when one of the handles of a loaded wheelbarrow struck him in the abdomen. He had immediate pain which improved later that day but has gradually been worsening since the injury. Review of Systems Cardiac: reports: Reviewed and negative Respiratory: reports: Reviewed and negative GI: reports: Abdominal Pain. denies: Abdominal Swelling, Nausea, Vomiting, Constipation, Diarrhea : denies: Dysuria, Hematuria PD PAST MEDICAL HISTORY - Past Medical History Cardiovascular: Hypertension Respiratory: None Endocrine/Autoimmune: Type 2 diabetes GI: GI bleed, Ulcers, Hepatitis : None HEENT: None Psych: Depression, Anxiety, Panic attacks, Post traumatic stress disorder Musculoskeletal: None Derm: None - Past Surgical History Past Surgical History: No - Present Medications Home Medications: Ambulatory Orders Medication Instructions Recorded Confirmed Paroxetine HCl [Paxil] 40 mg PO DAILY 11/23/16 11/23/16 Sildenafil Citrate [Sildenafil] 20 - 40 mg PO DAILY PRN 11/23/16 11/23/16 PARoxetine [Paxil] 40 mg PO DAILY tablet 11/25/16 Pantoprazole [Protonix] 40 mg PO BID #60 tablet 11/25/16 Sucralfate [Carafate] 1 gm PO QID #120 tablet 11/25/16 buPROPion [Wellbutrin Sr] 05/08/18 metFORMIN [Glucophage] 05/08/18 - Allergies Allergies/Adverse Reactions: Allergies Allergy/AdvReac Type Severity Reaction Status Date / Time codeine AdvReac Emesis Verified 05/07/18 23:17 - Social History Does the pt smoke?: No Smoking Status: Never smoker Does the pt drink ETOH?: No ETOH Use: Beer Does the pt have substance abuse?: No Substance Use and Type: Meth - Immunizations Immunizations are current?: Yes - POLST Patient has POLST: No PD ED PE NORMAL - Vitals Vital signs reviewed: Yes - General General: Alert and oriented X 3, No acute distress, Well developed/nourished - Cardiac Cardiac: RRR, No murmur - Respiratory Respiratory: No respiratory distress, Clear bilaterally - Abdomen Abdomen: Soft, Non distended, Other (mild/moderate periumbilical tenderness to palpation without rebound or guarding. no masses, no bruising) - Derm Derm: Normal color, Warm and dry Results - Vitals Vitals: Vital Signs - 24 hr 05/07/18 05/08/18 05/08/18 23:17 01:00 01:52 Temperature 36.8 C Heart Rate 100 72 66 Respiratory 18 18 Rate Blood Pressure 160/96 H 131/72 H O2 Saturation 98 96 96 05/08/18 03:02 Temperature Heart Rate 80 Respiratory 16 Rate Blood Pressure 136/87 H O2 Saturation 100 Oxygen O2 Source Room air - Labs Labs: Laboratory Tests 05/07/18 05/08/18 05/08/18 23:55 00:10 00:10 WBC 7.5 RBC 4.53 L Hgb 14.4 Hct 41.5 L MCV 91.6 MCH 31.9 H MCHC 34.8 RDW 13.7 Plt Count 190 MPV 7.0 L Neut # (Auto) 5.7 Lymph # (Auto) 1.0 L [place] # (Auto) 0.5 Eos # (Auto) 0.2 Baso # (Auto) 0.1 Absolute Nucleated RBC 0.01 Nucleated RBC % 0.1 PT 12.2 INR 1.1 APTT 30.2 Sodium Potassium Chloride Carbon Dioxide Anion Gap BUN Creatinine Estimated GFR (MDRD) Glucose Calcium Total Bilirubin AST ALT Alkaline Phosphatase Total Protein Albumin Globulin Albumin/Globulin Ratio Lipase Urine Color YELLOW Urine Clarity CLEAR Urine pH 6.0 Ur Specific [place] 1.025 Urine Protein NEGATIVE Urine Glucose (UA) >=1000 H Urine Ketones NEGATIVE Urine Occult Blood TRACE-LYSE Urine Nitrite NEGATIVE Urine Bilirubin NEGATIVE Urine Urobilinogen 0.2 (NORMAL) Ur Leukocyte Esterase NEGATIVE Ur Microscopic Review NOT INDICATED Urine Culture Comments NOT INDICATED 05/08/18 00:10 WBC RBC Hgb Hct MCV MCH MCHC RDW Plt Count MPV Neut # (Auto) Lymph # (Auto) [place] # (Auto) Eos # (Auto) Baso # (Auto) Absolute Nucleated RBC Nucleated RBC % PT INR APTT Sodium 139 Potassium 4.3 Chloride 105 Carbon Dioxide 27 Anion Gap 7.0 BUN 17 Creatinine 0.7 Estimated GFR (MDRD) 118 Glucose 270 H Calcium 8.7 Total Bilirubin 0.4 AST 104 H ALT 193 H Alkaline Phosphatase 120 Total Protein 7.5 Albumin 3.7 Globulin 3.8 Albumin/Globulin Ratio 1.0 Lipase 131 H Urine Color Urine Clarity Urine pH Ur Specific [place] Urine Protein Urine Glucose (UA) Urine Ketones Urine Occult Blood Urine Nitrite Urine Bilirubin Urine Urobilinogen Ur Leukocyte Esterase Ur Microscopic Review Urine Culture Comments - Rads (name of study) CT A/P Radiology: Prelim report reviewed, See rad report PD MEDICAL DECISION MAKING - ED course Complexity details: reviewed results, re-evaluated patient, considered differential, d/w patient ED course: Results reviewed with patient, including CT results. I emphasized that he needs to follow-up for the CT findings; specifically that he has abnormal appearance of the lymph nodes in his abdomen. I explained that the differential diagnosis includes lymphoma. Departure - Departure Disposition: 01 Home, Self Care Clinical Impression: Abdominal pain Condition: Good Instructions: ED Abdominal Pain Unkn Cause Male Follow-Up: lEsa Gamez ARNP [Primary Care Provider] - Comments: If you are not already on an acid-blocking medication (such as pepcid, tagamet, nexium, or prilosec), I recommend you start taking prilosec 20mg once per day for 2 weeks. This is available [id number] and thus does not require a prescription. Discharge Date/Time: 05/08/18 03:26
[2018-05-08 00:12] LABS: BILIRUBIN,URINE NEGATIVE (NEGATIVE); GLUCOSE, URINE (UA) >=1000 mg/dL (NEGATIVE); KETONES,URINE (UA) NEGATIVE (NEGATIVE); LEUKOCYTE ESTERASE, URINE NEGATIVE (NEGATIVE); NITRITE,URINE NEGATIVE (NEGATIVE); OCCULT BLOOD,URINE TRACE-LYSE (NEGATIVE); PROTEIN,URINE NEGATIVE (NEGATIVE); UROBILINOGEN,URINE 0.2 (NORMAL) E.U./dL (NORMAL)
[2018-05-08 00:26] LABS: BASOPHILS # (AUTO) 0.1 10^3/uL (0.0-0.1); BASOPHILS % (AUTO) 0.8 %; EOSINOPHILS # (AUTO) 0.2 10^3/uL (0.0-0.7); EOSINOPHILS % (AUTO) 2.6 %; HGB - HEMOGLOBIN 14.4 g/dL (14.0-18.0); LYMPHOCYTES % (AUTO) 13.5 %; MEAN CORPUSCULAR HEMOGLOBIN 31.9 pg (27.0-31.0); MEAN CORPUSCULAR HGB CONC 34.8 g/dL (32.0-36.0); MEAN CORPUSCULAR VOLUME 91.6 fL (80.0-94.0); MONOCYTES # (AUTO) 0.5 10^3/uL (0.0-1.0); MONOCYTES % (AUTO) 6.9 %; NEUTROPHILS # (AUTO) 5.7 10^3/uL (1.5-6.6); NEUTROPHILS % (AUTO) 76.2 %; PLT - PLATELET COUNT 190 10^3/uL (130-450); RED BLOOD COUNT 4.53 10^6/uL (4.70-6.10); RED CELL DISTRIBUTION WIDTH 13.7 % (12.0-15.0); WHITE BLOOD COUNT 7.5 x10^3/uL (4.8-10.8)
[2018-05-08 00:27] LABS: CLARITY,URINE CLEAR (CLEAR)
[2018-05-08 00:36] LABS: INR 1.1 (0.8-1.2); PT - PROTHROMBIN TIME 12.2 secs (9.9-12.6)
[2018-05-08 00:51] LABS: ALBUMIN 3.7 g/dL (3.2-5.5); BILIRUBIN,TOTAL 0.4 mg/dL (0.2-1.0); CALCIUM 8.7 mg/dL (8.5-10.3); CREATININE 0.7 mg/dL (0.6-1.2); TOTAL PROTEIN 7.5 g/dL (6.7-8.2)
[2018-05-08] MEDS ORDERED: IOVERSOL 320 100 ML VIAL IVP ONE (01:08)
--- NOTE | 2018-05-08 02:00 | CT Report ---
Reason: abd. pain after injury Procedure Date: 05/08/2018 Accession Number: [id number] / [id number] Procedure: CT - Abdomen/Pelvis W/ CPT Code: FULL RESULT: EXAM: CT ABDOMEN AND PELVIS EXAM DATE: 05/08/2018 01:31 AM. CLINICAL HISTORY: Abdominal pain after injury. COMPARISONS: ABDOMEN COMPLETE 11/23/2016 7:22 AM. TECHNIQUE: Routine helical CT imaging was performed through the abdomen and pelvis. IV contrast: Yes . Enteric contrast: No . Reconstructions: Coronal and sagittal. In accordance with CT protocol optimization, one or more of the following dose reduction techniques were utilized for this exam: automated exposure control, adjustment of mA and/or KV based on patient size, or use of iterative reconstructive technique. FINDINGS: Lung Bases: Unremarkable. Liver: Scattered tiny hypodensities are statistically benign. No intrahepatic mass seen. Of note, there is mild to moderate portahepatic and upper abdominal/retroperitoneal lymphadenopathy. Largest node is a portahepatic lymph node on image 28 series 3 measuring 48 x 36 mm in cross-section. Gallbladder/Bile Ducts: Unremarkable. Spleen: Unremarkable. Pancreas: Unremarkable. Adrenal Glands: Unremarkable. Kidneys: Unremarkable. No suspicious masses or hydronephrosis. Peritoneal Cavity/Bowel: No bowel obstruction or inflammatory process seen. No free air or significant free fluid. No masses. The appendix is normal. Moderate stool burden. Pelvic Organs: Bladder and prostate appear unremarkable. Vasculature: No aneurysms or other significant abnormality. Bones: No significant abnormality. Other: Please see above for adenopathy. No pelvic adenopathy seen. IMPRESSION: 1. No acute injury seen in the abdomen or pelvis. 2. Mild to moderate upper abdominal adenopathy, worst in the portahepatic region. Distribution raises suspicion of chronic hepatitis as cause but lymphoma not excluded. Close imaging followup (1-3 months) and/or biopsy suggested. 3. Moderate stool burden. Results discussed with Dr. Gray. [facility]
[2018-05-08] MEDS: IOVERSOL 320 100 ML VIAL IVP ONE (02:05)
[2018-05-08 03:03] VITALS: BP 136/87
== END 2018-05-08 03:26 | disposition home or self-care (01) ==
LOC: ED 23:13
DX: R10.9 Unspecified abdominal pain (principal); R93.5 Abnormal findings on diagnostic imaging of other abdominal regions, including retroperitoneum; I10 Essential (primary) hypertension; E11.9 Type 2 diabetes mellitus without complications; Z79.84 Long term (current) use of oral hypoglycemic drugs
CPT/HCPCS: 74177; 80053; 81001; 81003; 83690; 85025; 85610; 85730; 87086; 99283

== ENCOUNTER 2018-05-09 11:16 | Outpatient (CLI) | payer MEDICAID | END 2018-05-09 11:17 | disposition critical access hospital (66) | LOC: EMS 11:16 | PROVIDERS: ATTEND Surgery | DX: R51 Headache (principal) | CPT/HCPCS: A0425; A0429; A0999 ==

== ENCOUNTER 2018-05-09 11:58 | Emergency (ER) | payer MEDICAID ==
[2018-05-09] MEDS ORDERED: diphenhydrAMINE INJ 50 MG/ML VIAL IVP STA (12:16)
[2018-05-09] MEDS ORDERED: SODIUM CHLORIDE 0.9% 1,000 ML IV ONE (12:16)
[2018-05-09] MEDS ORDERED: METOCLOPRAMIDE 10 MG/2 ML VIAL IVP STA (12:16)
--- NOTE | 2018-05-09 12:18 | ED Physician Documentation ---
PD HPI HEADACHE - Stated complaint Stated Complaint: Headache - Chief complaint Chief Complaint: Neuro - History obtained from History obtained from: Patient - History of Present Illness Timing - onset: Other (He was here 2 nights ago for abdominal trauma, for which he got a enhanced abdominal CT which was normal. During the CAT scan with the contrast he got some of the expected side effects, he felt warm but he also developed a gradual onset right-sided headache that got worse over the next day. Is now slightly better. It is behind the right eye. Its associated with light sensitivity, but no nausea, vomiting, fevers, chills, neck stiffness. He does not have a history of any primary headache syndrome. He tried some ibuprofen without relief.) Review of Systems Constitutional: denies: Fever, Chills Eyes: reports: Photophobia. denies: Loss of vision, Decreased vision Nose: denies: Rhinorrhea / runny nose, Congestion GI: reports: Abdominal Pain (Persistent since his last visit but not worsening). denies: Nausea, Vomiting, Constipation, Diarrhea PD PAST MEDICAL HISTORY - Past Medical History Past Medical History: Yes Cardiovascular: Hypertension Respiratory: None Endocrine/Autoimmune: Type 2 diabetes GI: GI bleed, Ulcers, Hepatitis : None HEENT: None Psych: Depression, Anxiety, Panic attacks, Post traumatic stress disorder Musculoskeletal: None Derm: None - Past Surgical History Past Surgical History: No - Present Medications Home Medications: Ambulatory Orders Medication Instructions Recorded Confirmed RX: Paroxetine HCl [Paxil] 40 mg PO DAILY 11/23/16 11/23/16 RX: Sildenafil Citrate [Sildenafil] 20 - 40 mg PO DAILY PRN 11/23/16 11/23/16 RX: PARoxetine [Paxil] 40 mg PO DAILY tablet 11/25/16 RX: Pantoprazole [Protonix] 40 mg PO BID #60 tablet 11/25/16 Sucralfate [Carafate] 1 gm PO QID #120 tablet 11/25/16 RX: metFORMIN [Glucophage] 05/08/18 buPROPion [Wellbutrin Sr] 05/08/18 SUMAtriptan [Imitrex] 25 mg PO BID PRN #10 tablet 05/09/18 - Allergies Allergies/Adverse Reactions: Allergies Allergy/AdvReac Type Severity Reaction Status Date / Time codeine AdvReac Emesis Verified 05/07/18 23:17 - Social History Does the pt smoke?: No Smoking Status: Never smoker Does the pt drink ETOH?: No Does the pt have substance abuse?: No - Immunizations Immunizations are current?: Yes - POLST Patient has POLST: No PD ED PE NORMAL - Vitals Vital signs reviewed: Yes - General General: Alert and oriented X 3, No acute distress - HEENT HEENT: PERRL, EOMI, Other (Light sensitive) - Neck Neck: Supple, no meningeal sign, No bony TTP - Abdomen Abdomen: Non tender - Back Back: No CVA TTP, No spinal TTP - Derm Derm: Normal color, Warm and dry - Neuro Neuro: Alert and oriented X 3, Normal speech - Psych Psych: Normal mood, Normal affect Results - Vitals Vitals: Vital Signs - 24 hr 05/09/18 05/09/18 11:59 13:41 Temperature 36.5 C 36.7 C Heart Rate 65 60 Respiratory 12 18 Rate Blood Pressure 140/97 H 131/88 H O2 Saturation 98 100 Oxygen O2 Source Room air - Labs Labs: Laboratory Tests 05/09/18 12:25 Sodium 135 Potassium 4.2 Chloride 102 Carbon Dioxide 26 Anion Gap 7.0 BUN 13 Creatinine 0.7 Estimated GFR (MDRD) 118 Glucose 150 H Calcium 8.7 PD MEDICAL DECISION MAKING - ED course ED course: 53-year-old gentleman with headache after the administration of IV contrast 2 Days ago which is now improved. He had almost complete improvement after the administration of Reglan and CT imaging was done given the atypical nature of the headache which was unremarked. There is no evidence of meningitis. Departure - Departure Disposition: 01 Home, Self Care Clinical Impression: Headache Condition: Good Record reviewed to determine appropriate education?: Yes Instructions: ED Cephalgia Unspecified Prescriptions: SUMAtriptan [Imitrex] 25 mg PO BID PRN #10 tablet PRN Reason: Headache Comments: Call your doctor to arrange a follow-up appointment, make the next available appointment. In the interim, return anytime if worse or if new symptoms develop. Discharge Date/Time: 05/09/18 13:41
[2018-05-09 12:39] LABS: CALCIUM 8.7 mg/dL (8.5-10.3); CREATININE 0.7 mg/dL (0.6-1.2)
--- NOTE | 2018-05-09 13:25 | CT Report ---
Reason: headache Procedure Date: 05/09/2018 Accession Number: [id number] / [id number] Procedure: CT - Head W/O CPT Code: FULL RESULT: EXAM: CT HEAD EXAM DATE: 05/09/2018 01:05 PM. CLINICAL HISTORY: Headache. COMPARISON: None. TECHNIQUE: Multiaxial CT images were obtained from the foramen magnum to the vertex. Reformats: Sagittal and coronal. IV contrast: None. In accordance with CT protocol optimization, one or more of the following dose reduction techniques were utilized for this exam: automated exposure control, adjustment of mA and/or KV based on patient size, or use of iterative reconstructive technique. FINDINGS: Parenchyma: No intraparenchymal hemorrhage. No evidence of mass, midline shift, or CT findings of infarction. Moreau-white differentiation is distinct. Extraaxial Spaces: Normal for age. No subdural or epidural collections identified. Ventricles: Normal in size and position. Sinuses and Orbits: There is mild mucosal thickening in the ethmoid sinuses. Other sinuses appear clear. Bones: No evidence of fracture or calvarial defect. Other: None. IMPRESSION: 1. Negative for an acute or focal intracranial abnormality. 2. Mild mucosal thickening or chronic inflammatory disease of the ethmoid sinuses. No air-fluid level. RADIA
[2018-05-09 13:41] VITALS: BP 131/88
== END 2018-05-09 13:41 | disposition home or self-care (01) ==
LOC: EDUNIT# → ED 11:58
DX: R51 Headache (principal); I10 Essential (primary) hypertension; E11.9 Type 2 diabetes mellitus without complications; Z79.84 Long term (current) use of oral hypoglycemic drugs; K75.9 Inflammatory liver disease, unspecified
CPT/HCPCS: 36415; 70450; 80048; 96374; 99283; J1200; J2765

== ENCOUNTER 2018-08-05 12:08 | Outpatient (CLI) | payer MEDICAID ==
[2018-08-05 12:34] LABS: CREATININE 0.7 mg/dL (0.6-1.2)
[2018-08-05] MEDS ORDERED: IOPAMIDOL-300 100 ML VIAL ONE (12:45)
[2018-08-05] MEDS ORDERED: IOPAMIDOL-300 100 ML VIAL IVP ONE (14:51)
--- NOTE | 2018-08-05 16:43 | CT Report ---
Reason: LYMPHADENOPATHY Procedure Date: 08/05/2018 Accession Number: [id number] / [id number] Procedure: CT - ABDOMEN W CPT Code: FULL RESULT: EXAM: CT ABDOMEN WITH IV CONTRAST EXAM DATE: 08/05/2018 01:26 PM. CLINICAL HISTORY: Lymphadenopathy. 3 month surveillance imaging requested from prior study. COMPARISON: CT abdomen/pelvis with contrast 05/08/2018. TECHNIQUE: Routine helical CT imaging was performed through the abdomen. IV contrast: Isovue 300, 100 mL Enteric contrast: No. Reconstruction: Coronal and sagittal. In accordance with CT protocol optimization, one or more of the following dose reduction techniques were utilized for this exam: automated exposure control, adjustment of mA and/or KV based on patient size, or use of iterative reconstructive technique. FINDINGS: Lung Bases: Unremarkable. Liver: Stable 4 mm hypodensity high left lobe of liver and an 8 mm similar finding along the anterior liver near capsule, too small to characterize, most likely cysts. No solid or enhancing masses. Gallbladder/Bile Ducts: Unremarkable. Spleen: Normal. An accessory splenule is again noted, series 3 image 16. Pancreas: Normal. Adrenal Glands: Normal. Kidneys: Normal. No masses or hydronephrosis. Peritoneal Cavity/Bowel: There is a stable pattern of upper abdominal/retroperitoneal adenopathy with greatest involvement in the periportal location. 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 There is stable adenopathy noted extending towards the splenic hilum in the periaortic and interaortocaval stations, with a few smaller nodes extending into the mesenteric root. The portal vein is not narrowed although there is narrowing of the right renal vein from compression by dominant stephy conglomerate. The visualized bowel is within expected limits. There is no free air or free fluid. Vasculature: No aneurysms or other significant abnormality. Bones: No significant abnormality. Other: None. 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 RADIA
== END 2018-08-05 12:09 | disposition home or self-care (01) ==
LOC: LAB 12:08 → DI 12:09
PROVIDERS: ATTEND Nurse Practitioner Family
DX: R59.1 Generalized enlarged lymph nodes (principal); E11.9 Type 2 diabetes mellitus without complications
CPT/HCPCS: 36415; 74160; 82565; Q9967

== ENCOUNTER 2018-09-14 11:54 | Outpatient (CLI) | payer MEDICAID ==
[2018-09-14 18:15] LABS: BASOPHILS # (AUTO) 0.1 10^3/uL (0.0-0.1); BASOPHILS % (AUTO) 1.1 %; EOSINOPHILS # (AUTO) 0.2 10^3/uL (0.0-0.7); EOSINOPHILS % (AUTO) 3.3 %; HGB - HEMOGLOBIN 14.3 g/dL (14.0-18.0); LYMPHOCYTES % (AUTO) 22.7 %; MEAN CORPUSCULAR HEMOGLOBIN 30.8 pg (27.0-31.0); MEAN CORPUSCULAR HGB CONC 33.2 g/dL (32.0-36.0); MEAN CORPUSCULAR VOLUME 92.8 fL (80.0-94.0); MEAN PLATELET VOLUME 7.5 fL (7.4-11.4); MONOCYTES # (AUTO) 0.3 10^3/uL (0.0-1.0); MONOCYTES % (AUTO) 7.2 %; NEUTROPHILS % (AUTO) 65.7 %; PLT - PLATELET COUNT 188 10^3/uL (130-450); RED BLOOD COUNT 4.64 10^6/uL (4.70-6.10); RED CELL DISTRIBUTION WIDTH 13.8 % (12.0-15.0); WHITE BLOOD COUNT 4.6 x10^3/uL (4.8-10.8)
[2018-09-14 18:58] LABS: ALBUMIN/GLOBULIN RATIO 1.1 (1.0-2.2); ALKALINE PHOSPHATASE 99 IU/L (42-121); ALT ALANINE AMINOTRANSFERASE 119 IU/L (10-60); AST ASPARTATE AMINOTRANSFERASE 66 IU/L (10-42); BILIRUBIN,TOTAL 0.6 mg/dL (0.2-1.0); BUN - BLOOD UREA NITROGEN 20 mg/dL (6-20); CALCIUM 8.8 mg/dL (8.5-10.3); CARBON DIOXIDE - CO2 28 mmol/L (21-32); CHLORIDE 104 mmol/L (101-111); CHOL/HDL RATIO 2.6 (<5.0); CHOLESTEROL 140 mg/dL; CREATININE 0.8 mg/dL (0.6-1.2); GFR - MDRD 101 (>89); GLUCOSE 109 mg/dL (70-100); HDL CHOLESTEROL 54 mg/dL; SODIUM 140 mmol/L (135-145); TOTAL PROTEIN 7.7 g/dL (6.7-8.2)
[2018-09-14 19:44] LABS: LDL CHOLESTEROL,DIRECT 76 mg/dL; LDLD/HDL RATIO 1.4 (<3.6)
[2018-09-14 19:50] LABS: HB2 TOTAL 15.3 g/dL; HEMOGLOBIN A1C 0.58 g/dL; HEMOGLOBIN A1C % 5.6 % (4.6-6.2)
[2018-09-15 12:57] LABS: HEPATITIS C ANTIBODY REACTIVE (NON-REACTIVE)
[2018-09-15 15:12] LABS: HEPATITIS B SURFACE ANTIGEN NON-REACTIVE (NON-REACTIVE)
[2018-09-16 16:06] LABS: HCV RNA QNT 5.18 Log IU/mL (NOT DETECTED); HCV RNA QUANT RT PCR 153000 IU/mL (NOT DETECTED)
== END 2018-09-14 23:59 | disposition home or self-care (01) ==
LOC: LAB.S 11:54
PROVIDERS: ATTEND Nurse Practitioner Family
DX: E11.9 Type 2 diabetes mellitus without complications (principal); B19.20 Unspecified viral hepatitis C without hepatic coma; Z12.5 Encounter for screening for malignant neoplasm of prostate; Z13.220 Encounter for screening for lipoid disorders
CPT/HCPCS: 36415; 80050; 80061; 83036; 83721; 84153; 85610; 86317; 86704; 86709; 86803; 87340

== ENCOUNTER 2018-10-30 20:23 | Emergency (ER) | payer MEDICAID ==
[2018-10-30] MEDS ORDERED: PROPARACAINE 0.5% OPHTH DROPS 15 ML EACHEYE STA (21:46)
[2018-10-30] MEDS ORDERED: POLYMYXIN B/TRIMETH OPHTH DROPS EACHEYE STA (21:46)
--- NOTE | 2018-10-30 21:54 | ED Physician Documentation ---
PD HPI OPHTHO - Stated complaint Stated Complaint: EYE PX/WEEPING - Chief complaint Chief Complaint: Heent - History obtained from History obtained from: Patient - History of Present Illness Timing - onset: Yesterday Timing - duration: Days (2) Timing - details: Gradual onset Pain level max: 3 Pain level now: 3 Location: Both Quality / character: Burning, Aching Associated symptoms: Redness, Tearing, Discharge (yellow) Contributing factors: Other (states was working with dirt and dirty water yesterday.). No: Exposed to conjunctivitis, Recent URI, FB, UV light (welding etc), Chemical exposure, acid, Chemical exposure, base, Blunt trauma, Penetrating trauma, Irrigated THREAD SPOOLER, Wears glasses, Wears contacts, Work related Recently seen: Not recently seen Review of Systems Constitutional: denies: Fever, Chills GI: denies: Vomiting, Diarrhea Skin: denies: Rash Musculoskeletal: denies: Neck pain, Back pain Neurologic: denies: Headache PD PAST MEDICAL HISTORY - Past Medical History Cardiovascular: Hypertension Respiratory: None Neuro: None Endocrine/Autoimmune: Type 2 diabetes GI: GI bleed, Ulcers, Hepatitis : None HEENT: None Psych: Depression, Anxiety, Panic attacks, Post traumatic stress disorder Musculoskeletal: None Derm: None - Past Surgical History Past Surgical History: No - Present Medications Home Medications: Ambulatory Orders Medication Instructions Recorded Confirmed Paroxetine HCl [Paxil] 40 mg PO DAILY 11/23/16 11/23/16 Sildenafil Citrate [Sildenafil] 20 - 40 mg PO DAILY PRN 11/23/16 11/23/16 PARoxetine [Paxil] 40 mg PO DAILY tablet 11/25/16 Pantoprazole [Protonix] 40 mg PO BID #60 tablet 11/25/16 Sucralfate [Carafate] 1 gm PO QID #120 tablet 11/25/16 buPROPion [Wellbutrin Sr] 05/08/18 metFORMIN [Glucophage] 05/08/18 SUMAtriptan [Imitrex] 25 mg PO BID PRN #10 tablet 05/09/18 Polymyxin B/Trimeth Ophth Drop 1 drops EACHEYE Q3H 7 Days #1 10/30/18 [Polytrim Ophth Drops] bottle - Allergies Allergies/Adverse Reactions: Allergies Allergy/AdvReac Type Severity Reaction Status Date / Time codeine AdvReac Emesis Verified 05/07/18 23:17 - Social History Does the pt smoke?: No Smoking Status: Never smoker Does the pt drink ETOH?: No Does the pt have substance abuse?: No - Immunizations Immunizations are current?: Yes - POLST Patient has POLST: No PD ED PE NORMAL - Vitals Vital signs reviewed: Yes - General General: Alert and oriented X 3, No acute distress, Well developed/nourished - HEENT HEENT: PERRL, Moist mucous membranes, Other (Bilateral conjunctivae are injected. No fluorescein uptake. No visible foreign bodies. Eyelids were everted. ) - Derm Derm: Warm and dry - Neuro Neuro: Alert and oriented X 3 - Psych Psych: Normal mood, Normal affect Results - Vitals Vitals: Oxygen O2 Source Room air PD MEDICAL DECISION MAKING - ED course Complexity details: considered differential, d/w patient ED course: 53-year-old male with bilateral conjunctivitis. Will place on ophthalmic antibiotics and follow-up with his doctor. Patient is well-appearing, nontoxic. Afebrile. No evidence of foreign body or corneal abrasion. Patient counseled regarding signs and symptoms for which I believe and urgent re-evaluation would be necessary. Patient with good understanding of and agreement to plan and is comfortable going home at this time This document was made in part using voice recognition software. While efforts are made to proofread this document, sound alike and grammatical errors may occur. Departure - Departure Disposition: 01 Home, Self Care Clinical Impression: Bilateral conjunctivitis Qualifiers: Conjunctivitis type: acute Acute conjunctivitis type: bacterial Qualified Code(s): H10.33 - Unspecified acute conjunctivitis, bilateral Condition: Good Instructions: ED Conjunctivitis Bacterial Follow-Up: Your,doctor in 1 week [Other] Roman Johnson MD [Provider Admit Priv/Credential] - Prescriptions: Polymyxin B/Trimeth Ophth Drop [Polytrim Ophth Drops] 1 drops EACHEYE Q3H 7 Days #1 bottle Comments: Use the eyedrops as prescribed. Return if you worsen. Follow-up with your doctor for further care. This should improve in the next 2 to 3 days. Discharge Date/Time: 10/30/18 22:14
[2018-10-30 22:14] VITALS: BP 162/99
== END 2018-10-30 22:14 | disposition home or self-care (01) ==
LOC: ED 20:23
DX: H10.33 Unspecified acute conjunctivitis, bilateral (principal); I10 Essential (primary) hypertension; E11.9 Type 2 diabetes mellitus without complications; Z79.84 Long term (current) use of oral hypoglycemic drugs
CPT/HCPCS: 99283; A9270; J3490

== ENCOUNTER 2019-01-20 13:12 | Emergency (ER) | payer MEDICAID ==
[2019-01-20 13:24] VITALS: BP 151/91
--- NOTE | 2019-01-20 16:28 | ED Physician Documentation ---
PD HPI SKIN - Stated complaint Stated Complaint: L FOOT PX - Chief complaint Chief Complaint: Ext Problem - History obtained from History obtained from: Patient - History of Present Illness Timing - onset: How many weeks ago (He has had some tender and thickened lesions between the toes for a few weeks. The last several days he had noticed some drainage from 1 of the spots as well as an odor. He has some tenderness and pain underneath the skin lesions.) Timing - duration: Weeks Timing - details: Gradual onset, Still present Location: LLE (Between the second and third toes with some lesions on the opposing parts of both toes at the middle portion of the toes. There is thickening of the skin with some drainage on the second toe.) Quality / character: Painful, Discolored (red), Raised (thickened skin slowly for weeks) Associated symptoms: No: Fever, Myalgias Review of Systems Constitutional: denies: Fever, Chills GI: denies: Nausea, Vomiting Skin: denies: Laceration (s) PD PAST MEDICAL HISTORY - Past Medical History Past Medical History: Yes Cardiovascular: Hypertension Respiratory: None Neuro: None Endocrine/Autoimmune: Type 2 diabetes GI: GI bleed, Ulcers, Hepatitis : None HEENT: None Psych: Depression, Anxiety, Panic attacks, Post traumatic stress disorder Musculoskeletal: None Derm: None - Past Surgical History Past Surgical History: No - Present Medications Home Medications: Ambulatory Orders Medication Instructions Recorded Confirmed RX: Paroxetine HCl [Paxil] 40 mg PO DAILY 11/23/16 11/23/16 RX: Sildenafil Citrate 20 - 40 mg PO DAILY PRN 11/23/16 11/23/16 RX: PARoxetine [Paxil] 40 mg PO DAILY tablet 11/25/16 RX: Pantoprazole [Protonix] 40 mg PO BID #60 tablet 11/25/16 Sucralfate [Carafate] 1 gm PO QID #120 tablet 11/25/16 RX: metFORMIN [Glucophage] 05/08/18 buPROPion [Wellbutrin Sr] 05/08/18 SUMAtriptan [Imitrex] 25 mg PO BID PRN #10 tablet 05/09/18 Polymyxin B/Trimeth Ophth Drop 1 drops EACHEYE Q3H 7 Days #1 10/30/18 [Polytrim Ophth Drops] bottle RX: Doxycycline Hyclate 100 mg PO BID #14 capsule 01/20/19 RX: Mupirocin 1 applic TP TID #15 g 01/20/19 RX: Salicylic Acid [Plantar Wart 1 each TP DAILY #20 adh..patch 01/20/19 Remover] - Allergies Allergies/Adverse Reactions: Allergies Allergy/AdvReac Type Severity Reaction Status Date / Time codeine AdvReac Emesis Verified 01/20/19 13:24 - Social History Does the pt smoke?: No Smoking Status: Never smoker Does the pt drink ETOH?: No Does the pt have substance abuse?: No - Immunizations Immunizations are current?: Yes - POLST Patient has POLST: No PD ED PE NORMAL - Vitals Vital signs reviewed: Yes - General General: Alert and oriented X 3, No acute distress, Well developed/nourished - Derm Derm: Normal color, Warm and dry - Extremities Extremities: Other (The left second and third toes have areas of hypertrophic skin with a central cauliflower appearance about 1-1/2 cm in diameter. The lesions are on the opposing parts of the toes that touch each other. There is some redness of the skin surrounding the one on the second toe. There is some loose skin around the consistent with the previous dried blister. There is no fluctuance.) - Neuro Neuro: No motor deficit, No sensory deficit Results - Vitals Vitals: Oxygen O2 Source Room air PD MEDICAL DECISION MAKING - ED course Complexity details: considered differential (The lesions between the toes looks like warts with some thickened and loose skin. There is some redness surrounding it suggesting some infection to the tissue. I did trim away some of the thickened skin over and around to get to little more treatable layer of skin with some white patches as well as ointment and oral antibiotics.), d/w patient Departure - Departure Disposition: 01 Home, Self Care Clinical Impression: Plantar wart, Wound infection Condition: Stable Record reviewed to determine appropriate education?: Yes Instructions: ED Warts Plantar Prescriptions: RX: Doxycycline Hyclate 100 mg PO BID #14 capsule RX: Mupirocin 1 applic TP TID #15 g RX: Salicylic Acid [Plantar Wart Remover] 1 each TP DAILY #20 adh..patch Comments: This looks like it was a wart that some infection to it as well. Clean with soap and water and apply some mupirocin antibiotic ointment during the day couple of times. Use doxycycline antibiotic as well for the infection. At night for bed apply the salicylate wart patch to the areas and leave them on overnight and into the morning. When you remove it, see if there is some skin that can peel off. Reapply the wart patches nightly for the next week or so until the thickened skin seems improved. Discharge Date/Time: 01/20/19 18:02
--- NOTE | 2019-01-20 17:17 | XRAY Report ---
Reason: toes pain and infection Procedure Date: 01/20/2019 Accession Number: [id number] / [id number] Procedure: XR - Toe(s) LT CPT Code: FULL RESULT: EXAM: LEFT TOE RADIOGRAPHY EXAM DATE: 01/20/2019 05:07 PM. CLINICAL HISTORY: Toes pain and infection. COMPARISON: None. TECHNIQUE: 3 views. FINDINGS: Bones: No erosions. No fracture or bone lesion. Joints: No subluxations. Soft Tissues: No significant soft tissue abnormalities identified radiographically. IMPRESSION: 1. No acute fractures or malalignment. 2. No radiographic evidence of osteomyelitis. [facility]
[2019-01-20] MEDS ORDERED: MUPIROCIN 2% OINT 1 GM TOP STA (17:30)
== END 2019-01-20 18:02 | disposition home or self-care (01) ==
LOC: ED 13:12
DX: B07.0 Plantar wart (principal); L08.9 Local infection of the skin and subcutaneous tissue, unspecified; E11.9 Type 2 diabetes mellitus without complications; Z79.84 Long term (current) use of oral hypoglycemic drugs; I10 Essential (primary) hypertension
CPT/HCPCS: 73660; 99283; A9270

== ENCOUNTER 2019-05-04 18:55 | Emergency (ER) | payer MEDICAID ==
[2019-05-04] MEDS ORDERED: ELECTROLYTE-A SOLUTION 1,000 ML IV STA (19:22)
[2019-05-04] MEDS ORDERED: ELECTROLYTE-A SOLUTION 1,000 ML IV ONE (19:22)
[2019-05-04 19:37] LABS: BASOPHILS % (AUTO) 0.7 %; EOSINOPHILS # (AUTO) 0.1 10^3/uL (0.0-0.7); EOSINOPHILS % (AUTO) 2.5 %; LYMPHOCYTES # (AUTO) 1.1 10^3/uL (1.5-3.5); LYMPHOCYTES % (AUTO) 24.8 %; MEAN CORPUSCULAR HEMOGLOBIN 29.6 pg (27.0-31.0); MEAN CORPUSCULAR HGB CONC 33.4 g/dL (32.0-36.0); MEAN CORPUSCULAR VOLUME 88.7 fL (80.0-94.0); MEAN PLATELET VOLUME 9.4 fL (7.4-11.4); MONOCYTES # (AUTO) 0.4 10^3/uL (0.0-1.0); MONOCYTES % (AUTO) 9.3 %; NEUTROPHILS # (AUTO) 2.7 10^3/uL (1.5-6.6); NEUTROPHILS % (AUTO) 62.2 %; PLT - PLATELET COUNT 186 10^3/uL (130-450); RED BLOOD COUNT 5.06 10^6/uL (4.70-6.10); RED CELL DISTRIBUTION WIDTH 12.4 % (12.0-15.0); WHITE BLOOD COUNT 4.4 x10^3/uL (4.8-10.8)
[2019-05-04 19:39] LABS: VBG BASE EXCESS 2.3 mmol/L (-2 - +2); VBG PCO2 48.6 mmHg (41-51); VBG PH 7.383 (7.31-7.41); VBG PO2 34.1 mmHg (25-47); VBG TOTAL CO2 29.8 mmol/L (24-29)
[2019-05-04 19:47] LABS: KETONES, SERUM (ACETEST) NEGATIVE (NEGATIVE)
[2019-05-04 19:57] LABS: ALBUMIN 4.1 g/dL (3.2-5.5); ALKALINE PHOSPHATASE 150 IU/L (42-121); ALT ALANINE AMINOTRANSFERASE 186 IU/L (10-60); AST ASPARTATE AMINOTRANSFERASE 84 IU/L (10-42); BILIRUBIN,TOTAL 0.7 mg/dL (0.2-1.0); BUN - BLOOD UREA NITROGEN 21 mg/dL (6-20); CALCIUM 8.8 mg/dL (8.5-10.3); CARBON DIOXIDE - CO2 29 mmol/L (21-32); CHLORIDE 94 mmol/L (101-111); CREATININE 1.2 mg/dL (0.6-1.2); GFR - MDRD 63 (>89); GLUCOSE 706 mg/dL (70-100); LIPASE 47 U/L (22-51); SODIUM 131 mmol/L (135-145); TOTAL PROTEIN 8.1 g/dL (6.7-8.2)
[2019-05-04 20:12] LABS: BILIRUBIN,URINE NEGATIVE (NEGATIVE); GLUCOSE, URINE (UA) >=1000 mg/dL (NEGATIVE); KETONES,URINE (UA) NEGATIVE (NEGATIVE); LEUKOCYTE ESTERASE, URINE NEGATIVE (NEGATIVE); NITRITE,URINE NEGATIVE (NEGATIVE); OCCULT BLOOD,URINE NEGATIVE (NEGATIVE); PROTEIN,URINE NEGATIVE (NEGATIVE); UROBILINOGEN,URINE 0.2 (NORMAL) E.U./dL (NORMAL)
[2019-05-04 20:15] LABS: CLARITY,URINE CLEAR (CLEAR)
[2019-05-04] MEDS ORDERED: INSULIN REGULAR HUMAN 100 UNIT in SODIUM CHLORIDE 0.9% 100ML 99 ML IV STA (20:27)
[2019-05-04] MEDS ORDERED: SODIUM CHLORIDE 0.9% 100ML 100 ML IV ONE (20:31)
[2019-05-04] MEDS ORDERED: INSULIN REGULAR HUMAN 100 UNIT/1 ML 10 ML MDV IVP STA (20:36)
[2019-05-04] MEDS ORDERED: INSULIN REGULAR HUMAN 100 UNIT/1 ML 10 ML MDV SUBQ STA (20:36)
--- NOTE | 2019-05-04 20:37 | ED Physician Documentation ---
History of Present Illness - Stated complaint Stated Complaint: Hyperglycemia - Chief complaint Chief Complaint: General - History obtained from History obtained from: Patient - History of Present Illness Pain level max: 0 Pain level now: 0 - Additonal information Additional information: 54-year-old male presents to the emergency department stating he has been out of his medications for the past several months because the clinic in [place] closed. He does not believe he has a new doctor. He has been off of his metformin and has been very thirsty and urinating frequently. He states that he feels very poor overall. No fevers. No cough. No congestion. Some nausea but no vomiting. No diarrhea. Nothing makes it better or worse Review of Systems Ten Systems: 10 systems reviewed and negative Constitutional: denies: Fever, Chills Ears: denies: Ear pain Nose: denies: Rhinorrhea / runny nose, Congestion Respiratory: denies: Cough GI: denies: Vomiting, Diarrhea Skin: denies: Rash Musculoskeletal: denies: Neck pain, Back pain Neurologic: denies: Headache PD PAST MEDICAL HISTORY - Past Medical History Cardiovascular: Hypertension Respiratory: None Neuro: None Endocrine/Autoimmune: Type 2 diabetes GI: GI bleed, Ulcers, Hepatitis : None HEENT: None Psych: Depression, Anxiety, Panic attacks, Post traumatic stress disorder Musculoskeletal: None Derm: None - Past Surgical History Past Surgical History: No - Present Medications Home Medications: Ambulatory Orders Medication Instructions Recorded Confirmed PARoxetine HCl [Paxil] 40 mg PO DAILY 11/23/16 11/23/16 Sildenafil Citrate 20 - 40 mg PO DAILY PRN 11/23/16 11/23/16 PARoxetine [Paxil] 40 mg PO DAILY tablet 11/25/16 Pantoprazole [Protonix] 40 mg PO BID #60 tablet 11/25/16 Sucralfate [Carafate] 1 gm PO QID #120 tablet 11/25/16 buPROPion [Wellbutrin Sr] 05/08/18 metFORMIN [Glucophage] 05/08/18 SUMAtriptan [Imitrex] 25 mg PO BID PRN #10 tablet 05/09/18 Polymyxin B/Trimeth Ophth Drop 1 drops EACHEYE Q3H 7 Days #1 10/30/18 [Polytrim Ophth Drops] bottle Doxycycline Hyclate 100 mg PO BID #14 capsule 01/20/19 Mupirocin 1 applic TP TID #15 g 01/20/19 Salicylic Acid [Plantar Wart 1 each TP DAILY #20 adh..patch 01/20/19 Remover] Buspirone HCl 30 mg PO BID #60 tablet 05/04/19 Citalopram Hydrobromide 20 mg PO DAILY #30 tablet 05/04/19 [Citalopram HBr] Lisinopril 5 mg PO DAILY #30 tablet 05/04/19 QUEtiapine [SEROquel] 100 mg PO QPM #30 tablet 05/04/19 metFORMIN [Glucophage] 500 mg PO BIDWM #60 tablet 05/04/19 - Allergies Allergies/Adverse Reactions: Allergies Allergy/AdvReac Type Severity Reaction Status Date / Time codeine AdvReac Emesis Verified 05/04/19 19:17 - Social History Does the pt smoke?: No Smoking Status: Never smoker Does the pt drink ETOH?: No Does the pt have substance abuse?: No - Immunizations Immunizations are current?: Yes - POLST Patient has POLST: No PD ED PE NORMAL - Vitals Vital signs reviewed: Yes - General General: Alert and oriented X 3, No acute distress - HEENT HEENT: PERRL, Other (Dry lips and tongue) - Neck Neck: Supple, no meningeal sign - Cardiac Cardiac: RRR - Respiratory Respiratory: No respiratory distress, Clear bilaterally - Abdomen Abdomen: Soft, Non tender, Non distended - Derm Derm: Warm and dry - Extremities Extremities: No edema - Neuro Neuro: Alert and oriented X 3 - Psych Psych: Normal mood, Normal affect Results - Vitals Vitals: Vital Signs - 24 hr 05/04/19 05/04/19 05/04/19 21:17 21:30 22:00 Heart Rate 88 76 80 Respiratory 17 21 21 Rate Blood Pressure 129/76 129/84 H 121/83 H O2 Saturation 98 100 100 Oxygen O2 Source Room air - Labs Labs: Laboratory Tests 05/04/19 05/04/19 05/04/19 19:33 19:33 19:33 WBC 4.4 L RBC 5.06 Hgb 15.0 Hct 44.9 MCV 88.7 MCH 29.6 MCHC 33.4 RDW 12.4 Plt Count 186 MPV 9.4 Neut # (Auto) 2.7 Lymph # (Auto) 1.1 L [place] # (Auto) 0.4 Eos # (Auto) 0.1 Baso # (Auto) 0.0 Absolute Nucleated RBC 0.00 Nucleated RBC % 0.0 VBG pH 7.383 VBG pCO2 48.6 VBG pO2 34.1 VBG HCO3 28.3 H VBG Total CO2 29.8 H VBG O2 Saturation 67.4 VBG Base Excess 2.3 H Sodium 131 L Potassium 4.7 Chloride 94 L Carbon Dioxide 29 Anion Gap 8.0 BUN 21 H Creatinine 1.2 Estimated GFR (MDRD) 63 L Glucose 706 H* POC Whole Bld Glucose Glycated Hemoglobin Estim Average Glucose Calcium 8.8 Total Bilirubin 0.7 AST 84 H ALT 186 H Alkaline Phosphatase 150 H Total Protein 8.1 Albumin 4.1 Globulin 4.0 Albumin/Globulin Ratio 1.0 Lipase 47 Urine Color Urine Clarity Urine pH Ur Specific [place] Urine Protein Urine Glucose (UA) Urine Ketones Urine Occult Blood Urine Nitrite Urine Bilirubin Urine Urobilinogen Ur Leukocyte Esterase Ur Microscopic Review Urine Culture Comments Serum Ketones NEGATIVE 05/04/19 05/04/19 05/04/19 19:33 20:03 21:13 WBC RBC Hgb Hct MCV MCH MCHC RDW Plt Count MPV Neut # (Auto) Lymph # (Auto) [place] # (Auto) Eos # (Auto) Baso # (Auto) Absolute Nucleated RBC Nucleated RBC % VBG pH VBG pCO2 VBG pO2 VBG HCO3 VBG Total CO2 VBG O2 Saturation VBG Base Excess Sodium Potassium Chloride Carbon Dioxide Anion Gap BUN Creatinine Estimated GFR (MDRD) Glucose POC Whole Bld Glucose 347 H Glycated Hemoglobin 11.5 H Estim Average Glucose 283 H Calcium Total Bilirubin AST ALT Alkaline Phosphatase Total Protein Albumin Globulin Albumin/Globulin Ratio Lipase Urine Color YELLOW Urine Clarity CLEAR Urine pH 7.0 Ur Specific [place] <=1.005 Urine Protein NEGATIVE Urine Glucose (UA) >=1000 H Urine Ketones NEGATIVE Urine Occult Blood NEGATIVE Urine Nitrite NEGATIVE Urine Bilirubin NEGATIVE Urine Urobilinogen 0.2 (NORMAL) Ur Leukocyte Esterase NEGATIVE Ur Microscopic Review NOT INDICATED Urine Culture Comments NOT INDICATED Serum Ketones 05/04/19 21:58 WBC RBC Hgb Hct MCV MCH MCHC RDW Plt Count MPV Neut # (Auto) Lymph # (Auto) [place] # (Auto) Eos # (Auto) Baso # (Auto) Absolute Nucleated RBC Nucleated RBC % VBG pH VBG pCO2 VBG pO2 VBG HCO3 VBG Total CO2 VBG O2 Saturation VBG Base Excess Sodium Potassium Chloride Carbon Dioxide Anion Gap BUN Creatinine Estimated GFR (MDRD) Glucose POC Whole Bld Glucose 258 H Glycated Hemoglobin Estim Average Glucose Calcium Total Bilirubin AST ALT Alkaline Phosphatase Total Protein Albumin Globulin Albumin/Globulin Ratio Lipase Urine Color Urine Clarity Urine pH Ur Specific [place] Urine Protein Urine Glucose (UA) Urine Ketones Urine Occult Blood Urine Nitrite Urine Bilirubin Urine Urobilinogen Ur Leukocyte Esterase Ur Microscopic Review Urine Culture Comments Serum Ketones PD MEDICAL DECISION MAKING - ED course Complexity details: reviewed results, re-evaluated patient, considered differential, d/w patient ED course: Patient was given IV fluids, insulin. Blood sugar gradually decreased in the emergency department. He feels much better. We will refill his medications for him. No evidence of DKA or HHONKS. Tolerating p.o. without difficulty. He does have a physician in the [facility] and this information was relayed to him. Patient counseled regarding signs and symptoms for which I believe and urgent re-evaluation would be necessary. Patient with good understanding of and agreement to plan and is comfortable going home at this time This document was made in part using voice recognition software. While efforts are made to proofread this document, sound alike and grammatical errors may occur. 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 [Provider Group] Corona Naidu MD [Credentialed Staff Provider] - Within 1 week Prescriptions: Buspirone HCl 30 mg PO BID #60 tablet Citalopram Hydrobromide [Citalopram HBr] 20 mg PO DAILY #30 tablet Lisinopril 5 mg PO DAILY #30 tablet metFORMIN [Glucophage] 500 mg PO BIDWM #60 tablet QUEtiapine [SEROquel] 100 mg PO QPM #30 tablet Comments: Please restart your medications at home. Return if you worsen. You should call the [facility], as they took over the patient's for the [facility]. They should be able to help you with your medications until an appointment can be made for you. Dr. Naidu is listed as your doctor Discharge Date/Time: 05/04/19 22:28
[2019-05-04 21:15] LABS: HB2 TOTAL 15.5 g/dL; HEMOGLOBIN A1C 1.59 g/dL; HEMOGLOBIN A1C % 11.5 % (4.6-6.2)
[2019-05-04 22:06] VITALS: BP 121/83
== END 2019-05-04 22:28 | disposition home or self-care (01) ==
LOC: ED 18:55
DX: E11.65 Type 2 diabetes mellitus with hyperglycemia (principal); R35.0 Frequency of micturition; E86.0 Dehydration; R63.1 Polydipsia; T38.3X6A Underdosing of insulin and oral hypoglycemic [antidiabetic] drugs, initial encounter; I10 Essential (primary) hypertension; Z91.138 Patient's unintentional underdosing of medication regimen for other reason; Z79.84 Long term (current) use of oral hypoglycemic drugs
CPT/HCPCS: 36415; 80053; 81003; 82009; 82803; 83036; 83690; 85025; 96360; 96361; 99283; 99284; J1815; 81001; 87086

== ENCOUNTER 2019-07-10 15:45 | Emergency (ER) | payer MEDICAID ==
[2019-07-10 16:26] LABS: BASOPHILS # (AUTO) 0.1 10^3/uL (0.0-0.1); BASOPHILS % (AUTO) 0.8 %; EOSINOPHILS # (AUTO) 0.1 10^3/uL (0.0-0.7); EOSINOPHILS % (AUTO) 1.4 %; HGB - HEMOGLOBIN 15.9 g/dL (14.0-18.0); LYMPHOCYTES # (AUTO) 0.8 10^3/uL (1.5-3.5); MEAN CORPUSCULAR HEMOGLOBIN 30.9 pg (27.0-31.0); MEAN CORPUSCULAR HGB CONC 34.3 g/dL (32.0-36.0); MEAN CORPUSCULAR VOLUME 89.9 fL (80.0-94.0); MEAN PLATELET VOLUME 9.6 fL (7.4-11.4); MONOCYTES # (AUTO) 0.5 10^3/uL (0.0-1.0); MONOCYTES % (AUTO) 6.2 %; NEUTROPHILS # (AUTO) 5.8 10^3/uL (1.5-6.6); PLT - PLATELET COUNT 221 10^3/uL (130-450); RED BLOOD COUNT 5.15 10^6/uL (4.70-6.10); RED CELL DISTRIBUTION WIDTH 12.4 % (12.0-15.0); VBG BASE EXCESS 0.3 mmol/L (-2 - +2); VBG PCO2 46.3 mmHg (41-51); VBG PH 7.369 (7.31-7.41); VBG PO2 25.2 mmHg (25-47); VBG TOTAL CO2 27.5 mmol/L (24-29); WHITE BLOOD COUNT 7.3 x10^3/uL (4.8-10.8)
[2019-07-10 16:33] LABS: ALBUMIN 3.8 g/dL (3.2-5.5); ALKALINE PHOSPHATASE 125 IU/L (42-121); ALT ALANINE AMINOTRANSFERASE 162 IU/L (10-60); AST ASPARTATE AMINOTRANSFERASE 95 IU/L (10-42); BILIRUBIN,TOTAL 0.7 mg/dL (0.2-1.0); BUN - BLOOD UREA NITROGEN 23 mg/dL (6-20); CALCIUM 8.7 mg/dL (8.5-10.3); CARBON DIOXIDE - CO2 26 mmol/L (21-32); CHLORIDE 91 mmol/L (101-111); CREATININE 1.1 mg/dL (0.6-1.2); GFR - MDRD 70 (>89); GLUCOSE 463 mg/dL (70-100); KETONES, SERUM (ACETEST) NEGATIVE (NEGATIVE); LIPASE 34 U/L (22-51); SODIUM 127 mmol/L (135-145); TOTAL PROTEIN 7.8 g/dL (6.7-8.2)
[2019-07-10] MEDS ORDERED: SODIUM CHLORIDE 0.9% 1,000 ML IV ONE ×2 (17:55→20:08)
[2019-07-10] MEDS ORDERED: INSULIN REGULAR HUMAN 100 UNIT/1 ML 10 ML MDV IVP STA ×2 (17:56→20:08)
--- NOTE | 2019-07-10 18:23 | ED Physician Documentation ---
PD HPI NVD - Stated complaint Stated Complaint: HIGH BLOOD SUGAR - Chief complaint Chief Complaint: General - History obtained from History obtained from: Patient - History of Present Illness Timing - onset: How many weeks ago Timing - duration: Weeks (he has been out of his meds, including Metformin, for 3-4 weeks. Has been feeling weak and tired, urinating a lot, for couple of weeks. Could not get appt right away at clinic. Finally had clinic appt today and was found to have high blod sugar off scale of machine, and also has right hand abrasion with redness concerning for infection. No nausea nor vomiting. No altered mentation.) Timing - details: Gradual onset Associated symptoms: Loss of appetite. No: Fever, Abdominal pain, Dysuria Contributing factors: Diabetes (ran out of meds 3-4 weeks ago). No: Sick contact, Bad food Similar symptoms before: Diagnosis (symptoms c/w high blood sugar) Recently seen: No: Clinic (had not gotten appt with clinic for few weeks, just there today.) Review of Systems Constitutional: denies: Fever, Chills Nose: denies: Rhinorrhea / runny nose, Congestion Throat: denies: Sore throat Respiratory: denies: Cough GI: denies: Abdominal Pain, Nausea, Vomiting, Diarrhea : reports: Frequency Skin: reports: Abrasion (s) (got abrasion between index and middle finger this past week and has redness and swelling developing the past couple of days now. No drainage. He did not think he got FB in the wound.) Neurologic: reports: Generalized weakness. denies: Focal weakness, Numbness Endocrine: reports: Polydypsia, Polyuria PD PAST MEDICAL HISTORY - Past Medical History Cardiovascular: Hypertension Respiratory: None Neuro: None Endocrine/Autoimmune: Type 2 diabetes GI: GI bleed, Ulcers, Hepatitis : None HEENT: None Psych: Depression, Anxiety, Panic attacks, Post traumatic stress disorder Musculoskeletal: None Derm: None - Past Surgical History Past Surgical History: No - Present Medications Home Medications: Ambulatory Orders Medication Instructions Recorded Confirmed PARoxetine HCl [Paxil] 40 mg PO DAILY 11/23/16 11/23/16 Sildenafil Citrate 20 - 40 mg PO DAILY PRN 11/23/16 11/23/16 PARoxetine [Paxil] 40 mg PO DAILY tablet 11/25/16 Pantoprazole [Protonix] 40 mg PO BID #60 tablet 11/25/16 Sucralfate [Carafate] 1 gm PO QID #120 tablet 11/25/16 buPROPion [Wellbutrin Sr] 05/08/18 metFORMIN [Glucophage] 05/08/18 SUMAtriptan [Imitrex] 25 mg PO BID PRN #10 tablet 05/09/18 Polymyxin B/Trimeth Ophth Drop 1 drops EACHEYE Q3H 7 Days #1 10/30/18 [Polytrim Ophth Drops] bottle Doxycycline Hyclate 100 mg PO BID #14 capsule 01/20/19 Mupirocin 1 applic TP TID #15 g 01/20/19 Salicylic Acid [Plantar Wart 1 each TP DAILY #20 adh..patch 01/20/19 Remover] Buspirone HCl 30 mg PO BID #60 tablet 05/04/19 metFORMIN [Glucophage] 500 mg PO BIDWM #60 tablet 05/04/19 Citalopram Hydrobromide 20 mg PO DAILY #10 tablet 07/10/19 [Citalopram HBr] Doxycycline Monohydrate 100 mg PO BID #14 tablet 07/10/19 Metformin HCl 1,000 mg PO BID #20 tablet 07/10/19 QUEtiapine [SEROquel] 100 mg PO QPM #10 tablet 07/10/19 lisinopriL [Lisinopril] 5 mg PO DAILY #10 tablet 07/10/19 - Allergies Allergies/Adverse Reactions: Allergies Allergy/AdvReac Type Severity Reaction Status Date / Time codeine AdvReac Emesis Verified 07/10/19 15:57 - Social History Does the pt smoke?: No Smoking Status: Never smoker Does the pt drink ETOH?: No Does the pt have substance abuse?: No - Immunizations Immunizations are current?: Yes - POLST Patient has POLST: No PD ED PE NORMAL - Vitals Vital signs reviewed: Yes - General General: Alert and oriented X 3, No acute distress, Well developed/nourished - HEENT HEENT: Ears normal, Pharynx benign. No: Moist mucous membranes - Neck Neck: Supple, no meningeal sign - Cardiac Cardiac: RRR, No murmur - Respiratory Respiratory: Clear bilaterally - Abdomen Abdomen: Soft, Non tender - Back Back: No CVA TTP - Derm Derm: Normal color, Warm and dry - Extremities Extremities: Normal ROM s pain, Other (right hand with abrasion noted between index and middle finger, without drainage nor apparent FB. There is redness and some swelling of the area, with redness extending to dorsum hand not quite to the wrist. No fluctuance. ) - Neuro Neuro: Alert and oriented X 3, No motor deficit, Normal speech Results - Vitals Vitals: Vital Signs - 24 hr 07/10/19 07/10/19 07/10/19 15:57 18:28 19:15 Temperature 36.9 C 36.8 C Heart Rate 90 80 76 Respiratory 17 16 16 Rate Blood Pressure 124/76 120/73 114/72 O2 Saturation 100 96 100 07/10/19 07/10/19 07/10/19 20:20 20:54 21:51 Temperature 36.6 C Heart Rate 71 69 73 Respiratory 25 H 20 19 Rate Blood Pressure 129/80 117/77 122/75 O2 Saturation 98 100 100 Oxygen O2 Source Room air - Labs Labs: Laboratory Tests 07/10/19 07/10/19 07/10/19 15:57 16:15 16:15 WBC 7.3 RBC 5.15 Hgb 15.9 Hct 46.3 MCV 89.9 MCH 30.9 MCHC 34.3 RDW 12.4 Plt Count 221 MPV 9.6 Neut # (Auto) 5.8 Lymph # (Auto) 0.8 L [place] # (Auto) 0.5 Eos # (Auto) 0.1 Baso # (Auto) 0.1 Absolute Nucleated RBC 0.00 Nucleated RBC % 0.0 VBG pH VBG pCO2 VBG pO2 VBG HCO3 VBG Total CO2 VBG O2 Saturation VBG Base Excess Sodium 127 L Potassium 5.1 H Chloride 91 L Carbon Dioxide 26 Anion Gap 10.0 BUN 23 H Creatinine 1.1 Estimated GFR (MDRD) 70 L Glucose 463 H POC Whole Bld Glucose 431 H Calcium 8.7 Magnesium Total Bilirubin 0.7 AST 95 H ALT 162 H Alkaline Phosphatase 125 H Total Protein 7.8 Albumin 3.8 Globulin 4.0 Albumin/Globulin Ratio 1.0 Lipase 34 Serum Ketones NEGATIVE 07/10/19 07/10/19 07/10/19 16:15 16:15 19:13 WBC RBC Hgb Hct MCV MCH MCHC RDW Plt Count MPV Neut # (Auto) Lymph # (Auto) [place] # (Auto) Eos # (Auto) Baso # (Auto) Absolute Nucleated RBC Nucleated RBC % VBG pH 7.369 VBG pCO2 46.3 VBG pO2 25.2 VBG HCO3 26.1 VBG Total CO2 27.5 VBG O2 Saturation 48.8 L VBG Base Excess 0.3 Sodium Potassium Chloride Carbon Dioxide Anion Gap BUN Creatinine Estimated GFR (MDRD) Glucose POC Whole Bld Glucose 568 H* Calcium Magnesium 2.4 Total Bilirubin AST ALT Alkaline Phosphatase Total Protein Albumin Globulin Albumin/Globulin Ratio Lipase Serum Ketones 07/10/19 07/10/19 20:56 21:46 WBC RBC Hgb Hct MCV MCH MCHC RDW Plt Count MPV Neut # (Auto) Lymph # (Auto) [place] # (Auto) Eos # (Auto) Baso # (Auto) Absolute Nucleated RBC Nucleated RBC % VBG pH VBG pCO2 VBG pO2 VBG HCO3 VBG Total CO2 VBG O2 Saturation VBG Base Excess Sodium Potassium Chloride Carbon Dioxide Anion Gap BUN Creatinine Estimated GFR (MDRD) Glucose POC Whole Bld Glucose 406 H 379 H Calcium Magnesium Total Bilirubin AST ALT Alkaline Phosphatase Total Protein Albumin Globulin Albumin/Globulin Ratio Lipase Serum Ketones - Rads (name of study) right hand Radiology: Prelim report reviewed (no FB seen; some soft tissue swelling noted. ), See rad report PD MEDICAL DECISION MAKING - ED course Complexity details: re-evaluated patient (He is hydrated with IV fluids. Blood sugar is coming down and is in 300s. Resume Metformin. Gave dose of insulin initially on treatment and is having reasonable but not excess effect, with just reasonable lowering of FSBS. He is not ketotic/acidotic. He does not seem septic. Will treat hand cellulitis outpt. ), considered differential (clinically not ketotic. Urine in office might have assessed that. Can give some fluids and resume Metformin. Can give dose of insulin to bring sugar a bit down now. Test labs for acidosis/ketosis to be sure. Right had with cellulitic appearing infection. No apparent abscess. Can get xray re: FB.), d/w patient Departure - Departure Disposition: 01 Home, Self Care Clinical Impression: Hyperglycemia without ketosis, Cellulitis of hand Condition: Stable Record reviewed to determine appropriate education?: Yes Instructions: ED Infec Skin Cellulitis, ED Hyperglycemia Diabetic Prescriptions: Citalopram Hydrobromide [Citalopram HBr] 20 mg PO DAILY #10 tablet Doxycycline Monohydrate 100 mg PO BID #14 tablet lisinopriL [Lisinopril] 5 mg PO DAILY #10 tablet Metformin HCl 1,000 mg PO BID #20 tablet QUEtiapine [SEROquel] 100 mg PO QPM #10 tablet Comments: Stay well-hydrated. Low sugar diet consistent with diabetic diet. Doxycycline antibiotic twice daily for a week for the hand infection. Continue usual medications. I wrote a prescription for 10 days worth of them in case there is some difficulty getting back with your primary care to renew them. Resume metformin at a higher dose than you had been. Follow-up with your primary care this coming week Discharge Date/Time: 07/10/19 21:55
[2019-07-10] MEDS ORDERED: KETOROLAC 30 MG/ML VIAL IVP STA (18:56)
[2019-07-10] MEDS ORDERED: metFORMIN 500 MG TABLET PO STA (18:56)
[2019-07-10] MEDS ORDERED: cefTRIAXone 1 GM VIAL IVP STA (18:56)
--- NOTE | 2019-07-10 19:44 | XRAY Report ---
Reason: hand redness/swelling; eval soft tissue FB Procedure Date: 07/10/2019 Accession Number: [id number] / [id number] Procedure: XR - Hand 3 View RT CPT Code: Final Report FULL RESULT: EXAM: RIGHT HAND RADIOGRAPHY EXAM DATE: 07/10/2019 07:12 PM. CLINICAL HISTORY: Hand redness/swelling; eval soft tissue FB. COMPARISON: None. TECHNIQUE: 3 views. FINDINGS: Bones: Well-corticated ossific density off of the ulnar styloid. No acute fractures. Joints: Normal. No subluxations. Soft Tissues: Mild soft tissue swelling over the metacarpophalangeal joints. No radiopaque foreign bodies. IMPRESSION: Soft tissue swelling. No radiopaque foreign bodies. RADIA
[2019-07-10] MEDS ORDERED: INSULIN REGULAR HUMAN 100 UNIT/1 ML 10 ML MDV SUBQ STA (20:17)
[2019-07-10] MEDS ORDERED: DOXYCYCLINE 100 MG TABLET PO STA (21:32)
[2019-07-10 21:55] VITALS: BP 122/75
== END 2019-07-10 21:55 | disposition home or self-care (01) ==
LOC: ED 15:45
DX: E11.65 Type 2 diabetes mellitus with hyperglycemia (principal); L03.113 Cellulitis of right upper limb; I10 Essential (primary) hypertension; F41.0 Panic disorder [episodic paroxysmal anxiety]; F32.9 Major depressive disorder, single episode, unspecified; F43.10 Post-traumatic stress disorder, unspecified; Z79.84 Long term (current) use of oral hypoglycemic drugs
CPT/HCPCS: 36415; 73130; 80053; 82009; 82803; 83690; 83735; 85025; 96361; 96374; 96375; 99284; A9270; J1815

== ENCOUNTER 2019-10-11 08:46 | Emergency (ER) | payer MEDICAID ==
[2019-10-11 08:56] VITALS: BP 138/89
--- NOTE | 2019-10-11 10:10 | ED Physician Documentation ---
History of Present Illness - Stated complaint Stated Complaint: L EYE IRRITATION - Chief complaint Chief Complaint: Heent - History obtained from History obtained from: Patient - Additonal information Additional information: Patient comes emergency department complaining of left eye irritation that is been going on since yesterday. Patient states he feels as though he got something in his eye but is not sure exactly what. He states he irrigated at the time but that the irritation has not gone away. Patient cannot tell if he has something still in his eye or if he is just scratched. He has not had any recent illnesses. No allergies. No chemical exposure. Patient does not wear contacts. He states he has mild blurring of his vision at baseline, and that his left eye vision is slightly more blurry than usual.No other complaints at this time. Review of Systems Ten Systems: 10 systems reviewed and negative Constitutional: reports: Reviewed and negative Eyes: reports: Irritation Ears: reports: Reviewed and negative Nose: reports: Reviewed and negative Throat: reports: Reviewed and negative Cardiac: reports: Reviewed and negative Respiratory: reports: Reviewed and negative GI: reports: Reviewed and negative : reports: Reviewed and negative Skin: reports: Reviewed and negative Musculoskeletal: reports: Reviewed and negative Neurologic: reports: Reviewed and negative Psychiatric: reports: Reviewed and negative Endocrine: reports: Reviewed and negative Immunocompromised: reports: Reviewed and negative PD PAST MEDICAL HISTORY - Past Medical History Past Medical History: Yes Cardiovascular: Hypertension Respiratory: None Neuro: None Endocrine/Autoimmune: Type 2 diabetes GI: GI bleed, Ulcers, Hepatitis : None HEENT: None Psych: Depression, Anxiety, Panic attacks, Post traumatic stress disorder Musculoskeletal: None Derm: None - Past Surgical History Past Surgical History: No - Present Medications Home Medications: Ambulatory Orders Medication Instructions Recorded Confirmed PARoxetine HCl [Paxil] 40 mg PO DAILY 11/23/16 11/23/16 Sildenafil Citrate 20 - 40 mg PO DAILY PRN 11/23/16 11/23/16 PARoxetine [Paxil] 40 mg PO DAILY tablet 11/25/16 Pantoprazole [Protonix] 40 mg PO BID #60 tablet 11/25/16 Sucralfate [Carafate] 1 gm PO QID #120 tablet 11/25/16 buPROPion [Wellbutrin Sr] 05/08/18 metFORMIN [Glucophage] 05/08/18 SUMAtriptan [Imitrex] 25 mg PO BID PRN #10 tablet 12/22/18 Polymyxin B/Trimeth Ophth Drop 1 drops EACHEYE Q3H 7 Days #1 10/30/18 [Polytrim Ophth Drops] bottle Doxycycline Hyclate 100 mg PO BID #14 capsule 01/20/19 Mupirocin 1 applic TP TID #15 g 01/20/19 Salicylic Acid [Plantar Wart 1 each TP DAILY #20 adh..patch 01/20/19 Remover] Buspirone HCl 30 mg PO BID #60 tablet 05/04/19 metFORMIN [Glucophage] 500 mg PO BIDWM #60 tablet 05/04/19 Citalopram Hydrobromide 20 mg PO DAILY #10 tablet 07/10/19 [Citalopram HBr] Doxycycline Monohydrate 100 mg PO BID #14 tablet 07/10/19 Metformin HCl 1,000 mg PO BID #20 tablet 07/10/19 QUEtiapine [SEROquel] 100 mg PO QPM #10 tablet 07/10/19 lisinopriL [Lisinopril] 5 mg PO DAILY #10 tablet 07/10/19 Gentamicin 0.3% Ophth Drops 1 drops LEFTEYE TID 7 Days #1 10/11/19 [Garamycin] bottle - Allergies Allergies/Adverse Reactions: Allergies Allergy/AdvReac Type Severity Reaction Status Date / Time codeine AdvReac Emesis Verified 10/11/19 08:55 - Social History Does the pt smoke?: No Smoking Status: Never smoker Does the pt drink ETOH?: No Does the pt have substance abuse?: No - Immunizations Immunizations are current?: Yes - POLST Patient has POLST: No PD ED PE NORMAL - General General: Alert and oriented X 3, No acute distress, Well developed/nourished - HEENT HEENT: Atraumatic, PERRL, EOMI, Moist mucous membranes, Other (Patient has moderate conjunctival injection of his left eye without discharge. With fluorescein exam, he has an approximately 4 mm abrasion at the 8 o'clock position. No foreign bodies are noted beneath the eyelids with lid eversion.) - Neck Neck: Supple, no meningeal sign - Respiratory Respiratory: No respiratory distress - Derm Derm: Normal color, Warm and dry, No rash - Extremities Extremities: Other (Range of motion grossly normal) - Neuro Neuro: Alert and oriented X 3, Other (Grossly nl) - Psych Psych: Normal mood, Normal affect Results - Vitals Vitals: Vital Signs - 24 hr 10/11/19 08:54 Temperature 36.5 C Heart Rate 104 H Respiratory 20 Rate Blood Pressure 138/89 H O2 Saturation 98 Oxygen O2 Source Room air PD MEDICAL DECISION MAKING - ED course Complexity details: considered differential, d/w patient ED course: I discussed with the patient that if the most likely 8, he had some sort of foreign body that left an abrasion. There is no evidence of foreign body under his lids at this time. I discussed with the patient that we will start him on antibiotics topically for infection prevention until his abrasion heals. He has been given a couple drops of proparacaine in the emergency department to help with his eye discomfort. I will also refer him to ophthalmology for follow-up and we have discussed the usual indications for return to the emergency department, as well. Departure - Departure Disposition: 01 Home, Self Care Clinical Impression: Abrasion of sclera of left eye Qualifiers: Encounter type: initial encounter Qualified Code(s): S05.8X2A - Other injuries of left eye and orbit, initial encounter Condition: Stable Instructions: ED Eye Injury Corneal Abrasion Prescriptions: Gentamicin 0.3% Ophth Drops [Garamycin] 1 drops LEFTEYE TID 7 Days #1 bottle Comments: Please do not use any contact lenses until your eyes doing better. You may follow-up, as needed, with [facility] in [place], where you may see Dr. Salvador, Dr. Lopes, or Dr. Craig. Their office number is [phone].
== END 2019-10-11 10:22 | disposition home or self-care (01) ==
LOC: ED 08:46
DX: S05.8X2A Other injuries of left eye and orbit, initial encounter (principal); X58.XXXA Exposure to other specified factors, initial encounter; Y93.89 Activity, other specified; I10 Essential (primary) hypertension; E11.9 Type 2 diabetes mellitus without complications; Z79.84 Long term (current) use of oral hypoglycemic drugs
CPT/HCPCS: 99282; 99284

== ENCOUNTER 2019-10-21 06:17 | Emergency (ER) | payer MEDICAID ==
[2019-10-21] MEDS ORDERED: KETOROLAC 60 MG/2 ML VIAL IM STA (07:26)
--- NOTE | 2019-10-21 08:04 | ED Physician Documentation ---
History of Present Illness - Stated complaint Stated Complaint: MEDINA/R SIDE FACIAL PX - Chief complaint Chief Complaint: Heent - History obtained from History obtained from: Patient - Additonal information Additional information: Patient comes emergency department complaining of facial pain over his right maxillary area and paranasal area. Patient states that he was not injured anywhere. He states he has had a mildly "stuffy nose" but that he did not think anything of this. He denies any fevers and does not feel sick in any other way. He states the pain starts under his eye and extends between his lateral nose and his TMJ. He states he has a feeling of some discomfort in his gums as well. The patient is edentulous and does not currently have dentures and though he does have a full set of dentures. He states his dentures do not fit properly on that they are uncomfortable to wear. However, he is not noticed pain like this with chewing. The patient states he used to clench his teeth when he had teeth, but that he does not know of any jaw clenching or tightness now that he does not have his che[place] teeth. Patient denies visual changes or excessive tearing. No other complaints at this time. Review of Systems Ten Systems: 10 systems reviewed and negative Constitutional: reports: Reviewed and negative Eyes: reports: Reviewed and negative Ears: reports: Reviewed and negative Nose: reports: Reviewed and negative Throat: reports: Reviewed and negative Cardiac: reports: Reviewed and negative Respiratory: reports: Reviewed and negative GI: reports: Reviewed and negative : reports: Reviewed and negative Skin: reports: Reviewed and negative Musculoskeletal: reports: Reviewed and negative Neurologic: reports: Reviewed and negative Psychiatric: reports: Reviewed and negative Endocrine: reports: Reviewed and negative Immunocompromised: reports: Reviewed and negative PD PAST MEDICAL HISTORY - Past Medical History Past Medical History: Yes Cardiovascular: Hypertension Respiratory: None Neuro: None Endocrine/Autoimmune: Type 2 diabetes GI: GI bleed, Ulcers, Hepatitis : None HEENT: None Psych: Depression, Anxiety, Panic attacks, Post traumatic stress disorder Musculoskeletal: None Derm: None - Past Surgical History Past Surgical History: No - Present Medications Home Medications: Ambulatory Orders Medication Instructions Recorded Confirmed Sildenafil Citrate 20 - 40 mg PO DAILY PRN 11/23/16 10/21/19 PARoxetine [Paxil] 40 mg PO DAILY tablet 07/10/17 06/04/20 Pantoprazole [Protonix] 40 mg PO BID #60 tablet 11/25/16 10/21/19 Sucralfate [Carafate] 1 gm PO QID #120 tablet 11/25/16 10/21/19 SUMAtriptan [Imitrex] 25 mg PO BID PRN #10 tablet 05/09/18 10/21/19 Buspirone HCl 30 mg PO BID #60 tablet 05/04/19 10/21/19 metFORMIN [Glucophage] 500 mg PO BIDWM #60 tablet 05/04/19 10/21/19 Citalopram Hydrobromide 20 mg PO DAILY #10 tablet 07/10/19 10/21/19 [Citalopram HBr] QUEtiapine [SEROquel] 100 mg PO QPM #10 tablet 07/10/19 10/21/19 lisinopriL [Lisinopril] 5 mg PO DAILY #10 tablet 07/10/19 10/21/19 Amox/Clav 875/125 [Augmentin] 1 each PO Q12H #20 tablet 10/21/19 traMADol [Ultram] 50 mg PO Q4-6H PRN 2 Days #8 tablet 10/21/19 - Allergies Allergies/Adverse Reactions: Allergies Allergy/AdvReac Type Severity Reaction Status Date / Time codeine AdvReac Emesis Verified 10/21/19 06:25 - Social History Does the pt smoke?: No Smoking Status: Never smoker Does the pt drink ETOH?: No Does the pt have substance abuse?: No - Immunizations Immunizations are current?: Yes - POLST Patient has POLST: No PD ED PE NORMAL - Vitals Vital signs reviewed: Yes - General General: Alert and oriented X 3, No acute distress - HEENT HEENT: Atraumatic, PERRL, EOMI, Moist mucous membranes, Other (No facial edema or erythema. No induration or fluctuance. Patient has moderate tenderness to light palpation over his maxillary area extending from the right side of his nose to his right TMJ. He has no clicking or popping with movement of the TMJ. There is no evidence of trauma. Patient's tenderness over his gingiva generally throughout his right mandibular and maxillary areas. No intraoral lesions noted.) - Neck Neck: Supple, no meningeal sign - Respiratory Respiratory: No respiratory distress - Derm Derm: Normal color, Warm and dry, No rash - Extremities Extremities: Other (Grossly normal) - Neuro Neuro: Alert and oriented X 3, Other (Grossly normal) - Psych Psych: Normal mood, Normal affect Results - Vitals Vitals: Vital Signs - 24 hr 10/21/19 10/21/19 06:21 07:30 Temperature 36.8 C 36.8 C Heart Rate 87 88 Respiratory 18 16 Rate Blood Pressure 146/99 H 140/94 H O2 Saturation 99 99 Oxygen O2 Source Room air PD MEDICAL DECISION MAKING - ED course Complexity details: reviewed results, re-evaluated patient, considered differential, d/w patient ED course: Patient was worked up with x-ray series of the sinuses and given a dose of Toradol. His x-ray showed fluid in the right sinus and was read by radiologist is consistent with acute sinusitis. I have started the patient on antibiotics in the emergency department. We have discussed the need for follow-up if the pain persists after the antibiotic course is complete. Departure - Departure Disposition: 01 Home, Self Care Clinical Impression: Acute sinusitis Qualifiers: Sinusitis location: maxillary Recurrence: non-recurrent Qualified Code(s): J01.00 - Acute maxillary sinusitis, unspecified Condition: Stable Instructions: ED Sinusitis Abx Tx Prescriptions: Amox/Clav 875/125 [Augmentin] 1 each PO Q12H #20 tablet traMADol [Ultram] 50 mg PO Q4-6H PRN 2 Days #8 tablet PRN Reason: Pain Comments: Your x-ray shows fluid in your right sinus, indicative of an acute sinus infection. You have been started on antibiotics for this. Please take them twice a day every day, until the course is complete. You may take the prescribed pain medicine plus ibuprofen and Tylenol, as needed for your discomfort.
--- NOTE | 2019-10-21 08:06 | XRAY Report ---
Reason: Atraumatic R sinus/facial pain Procedure Date: 10/21/2019 Accession Number: [id number] / [id number] Procedure: XR - Sinus Complete CPT Code: Final Report FULL RESULT: PROCEDURE: Sinus Complete INDICATIONS: Atraumatic R sinus/facial pain TECHNIQUE: 3 views of the sinuses were acquired. COMPARISON: CT head 05/09/2018. FINDINGS: Sinuses: There is partial opacification of the right maxillary sinus with an air-fluid level suggestive of acute sinusitis. Remaining paranasal sinuses are aerated. The visualized mastoids appear clear. Bones: No suspicious bony lesions. Nasal septum is midline. No definite sinus wall fracture identified. IMPRESSION: 1. Partial opacification of the right maxillary sinus with an air-fluid level suggestive of acute sinusitis. Reviewed by: Marko Sifuentes MD on 10/21/2019 8:05 AM PDT Approved by: Marko Sifuentes MD on 10/21/2019 8:05 AM PDT Station ID: [id number]
[2019-10-21] MEDS ORDERED: AMOX/CLAV 875 MG/125 MG TABLET PO STA (08:14)
[2019-10-21 08:32] VITALS: BP 142/90
== END 2019-10-21 08:32 | disposition home or self-care (01) ==
LOC: ED 06:17
DX: J01.00 Acute maxillary sinusitis, unspecified (principal); I10 Essential (primary) hypertension; E11.9 Type 2 diabetes mellitus without complications; Z79.84 Long term (current) use of oral hypoglycemic drugs
CPT/HCPCS: 70220; 96372; 99283; A9270

== ENCOUNTER 2019-12-29 07:03 | Outpatient (CLI) | payer MEDICAID ==
[2019-12-29 15:11] LABS: BASOPHILS % (AUTO) 0.6 %; EOSINOPHILS # (AUTO) 0.2 10^3/uL (0.0-0.7); EOSINOPHILS % (AUTO) 3.5 %; HGB - HEMOGLOBIN 14.9 g/dL (14.0-18.0); LYMPHOCYTES # (AUTO) 1.3 10^3/uL (1.5-3.5); LYMPHOCYTES % (AUTO) 23.8 %; MEAN CORPUSCULAR HEMOGLOBIN 31.6 pg (27.0-31.0); MEAN CORPUSCULAR HGB CONC 34.2 g/dL (32.0-36.0); MEAN CORPUSCULAR VOLUME 92.6 fL (80.0-94.0); MEAN PLATELET VOLUME 9.9 fL (7.4-11.4); MONOCYTES # (AUTO) 0.6 10^3/uL (0.0-1.0); MONOCYTES % (AUTO) 10.4 %; NEUTROPHILS # (AUTO) 3.3 10^3/uL (1.5-6.6); NEUTROPHILS % (AUTO) 60.8 %; PLT - PLATELET COUNT 198 10^3/uL (130-450); RED BLOOD COUNT 4.71 10^6/uL (4.70-6.10); RED CELL DISTRIBUTION WIDTH 12.7 % (12.0-15.0); WHITE BLOOD COUNT 5.4 x10^3/uL (4.8-10.8)
[2019-12-29 15:29] LABS: ALBUMIN 3.6 g/dL (3.2-5.5); ALBUMIN/GLOBULIN RATIO 0.9 (1.0-2.2); BILIRUBIN,TOTAL 0.4 mg/dL (0.2-1.0); CALCIUM 8.8 mg/dL (8.5-10.3); CREATININE 0.7 mg/dL (0.6-1.2); TOTAL PROTEIN 7.5 g/dL (6.7-8.2)
[2019-12-29 15:44] LABS: CREATININE,URINE 60.1 mg/dL; MICROALBUM/CREATININE RATIO,UR 63.2 ug/mg (<30.0); MICROALBUMIN,URINE 3.8 mg/dL (0-300.0)
[2019-12-29 20:20] LABS: HB2 TOTAL 15.1 g/dL; HEMOGLOBIN A1C 1.81 g/dL; HEMOGLOBIN A1C % 13.1 % (4.6-6.2)
[2019-12-31 20:23] LABS: ANA SCREEN NEGATIVE (NEGATIVE)
== END 2019-12-29 07:04 | disposition home or self-care (01) ==
LOC: LAB.S 07:03
PROVIDERS: ATTEND Family Medicine
DX: E11.9 Type 2 diabetes mellitus without complications (principal); I10 Essential (primary) hypertension; M25.50 Pain in unspecified joint
CPT/HCPCS: 36415; 80053; 82043; 82570; 83036; 85025; 86038

== ENCOUNTER 2020-05-06 15:17 | Outpatient (CLI) | payer MEDICAID ==
[2020-05-06 18:27] LABS: CALCIUM 9.1 mg/dL (8.5-10.3); CREATININE 0.8 mg/dL (0.6-1.2)
--- NOTE | 2020-05-06 18:48 | XRAY Report ---
PROCEDURE: Abdomen 2 View X-Ray INDICATIONS: ABDOMINAL BLOATING TECHNIQUE: 2 views of the abdomen were acquired. COMPARISON: None FINDINGS: Surgical changes and devices: None. Bowel: No pneumoperitoneum. The bowel gas pattern is normal. There is increased stool throughout t he colon consistent with constipation. Soft tissues: No masses; visualized solid organ contours appear normal in size. No suspicious abdom inal calcifications. Bones: No suspicious bony abnormalities. IMPRESSION: Constipation. No acute plain film abnormality of the abdomen. Reviewed by: Sylvester Oquendo on 05/06/2020 6:47 PM PST Approved by: Sylvester Oquendo on 05/06/2020 6:[address] [facility] Station ID: [id number]
[2020-05-06 21:04] LABS: HEMOGLOBIN A1c% 16.3 % (4.27-6.07)
== END 2020-05-06 15:18 | disposition home or self-care (01) ==
LOC: DI.S 15:17
PROVIDERS: ATTEND Registered Nurse
DX: K59.00 Constipation, unspecified (principal); R14.0 Abdominal distension (gaseous); E11.9 Type 2 diabetes mellitus without complications; I10 Essential (primary) hypertension
CPT/HCPCS: 36415; 80048; 83036

== ENCOUNTER 2020-06-12 21:24 | Emergency (ER) | payer MEDICAID ==
[2020-06-12] MEDS ORDERED: SODIUM CHLORIDE 0.9% 1,000 ML IV STA ×2 (21:54→23:46)
[2020-06-12] MEDS ORDERED: INSULIN REGULAR HUMAN 100 UNIT/1 ML 10 ML MDV IVP STA (21:55)
[2020-06-12 22:17] LABS: BASOPHILS % (AUTO) 0.6 %; EOSINOPHILS # (AUTO) 0.1 10^3/uL (0.0-0.7); EOSINOPHILS % (AUTO) 1.7 %; HGB - HEMOGLOBIN 14.5 g/dL (14.0-18.0); LYMPHOCYTES % (AUTO) 19.8 %; MEAN CORPUSCULAR HEMOGLOBIN 30.5 pg (27.0-31.0); MEAN CORPUSCULAR HGB CONC 34.1 g/dL (32.0-36.0); MEAN CORPUSCULAR VOLUME 89.3 fL (80.0-94.0); MEAN PLATELET VOLUME 9.2 fL (7.4-11.4); MONOCYTES # (AUTO) 0.4 10^3/uL (0.0-1.0); MONOCYTES % (AUTO) 8.4 %; NEUTROPHILS # (AUTO) 3.6 10^3/uL (1.5-6.6); NEUTROPHILS % (AUTO) 68.9 %; PLT - PLATELET COUNT 177 10^3/uL (130-450); RED BLOOD COUNT 4.76 10^6/uL (4.70-6.10); WHITE BLOOD COUNT 5.3 x10^3/uL (4.8-10.8)
[2020-06-12 22:22] LABS: KETONES, SERUM (ACETEST) NEGATIVE (NEGATIVE)
[2020-06-12 22:25] LABS: BILIRUBIN,URINE NEGATIVE (NEGATIVE); GLUCOSE, URINE (UA) >=1000 mg/dL (NEGATIVE); KETONES,URINE (UA) NEGATIVE (NEGATIVE); LEUKOCYTE ESTERASE, URINE NEGATIVE (NEGATIVE); NITRITE,URINE NEGATIVE (NEGATIVE); OCCULT BLOOD,URINE NEGATIVE (NEGATIVE); PROTEIN,URINE NEGATIVE (NEGATIVE); UROBILINOGEN,URINE 0.2 (NORMAL) E.U./dL (NORMAL)
[2020-06-12 22:26] LABS: CLARITY,URINE CLEAR (CLEAR)
[2020-06-12] MEDS ORDERED: INSULIN REGULAR HUMAN 100 UNIT/1 ML 10 ML MDV ONE (22:35)
[2020-06-12] MEDS ORDERED: INSULIN ASPART 100 UNIT/1 ML 10 ML MDV SUBQ STA ×2 (22:35→23:56)
[2020-06-12 22:37] LABS: ALBUMIN 3.7 g/dL (3.2-5.5); ALKALINE PHOSPHATASE 158 IU/L (42-121); ALT ALANINE AMINOTRANSFERASE 307 IU/L (10-60); AST ASPARTATE AMINOTRANSFERASE 181 IU/L (10-42); BILIRUBIN,TOTAL 0.5 mg/dL (0.2-1.0); BUN - BLOOD UREA NITROGEN 24 mg/dL (6-20); CALCIUM 9.5 mg/dL (8.5-10.3); CARBON DIOXIDE - CO2 25 mmol/L (21-32); CHLORIDE 93 mmol/L (101-111); CREATININE 0.8 mg/dL (0.6-1.2); LIPASE 44 U/L (22-51); TOTAL PROTEIN 7.5 g/dL (6.7-8.2)
[2020-06-12 22:39] LABS: GLUCOSE 684 mg/dL (70-100)
[2020-06-12 22:42] LABS: VBG PCO2 40.4 mmHg (41-51); VBG PH 7.414 (7.31-7.41); VBG PO2 85.7 mmHg (25-47)
[2020-06-12 22:43] LABS: VBG BASE EXCESS 0.7 mmol/L (-2 - +2); VBG TOTAL CO2 26.5 mmol/L (24-29)
[2020-06-12] MEDS ORDERED: POTASSIUM CHLORIDE 20 MEQ/15 ML UDC PO STA (23:46)
[2020-06-12] MEDS ORDERED: INSULIN ASPART 300 UNIT/3 ML PEN SUBQ STA (23:49)
--- NOTE | 2020-06-13 00:17 | ED Physician Documentation ---
History of Present Illness - Stated complaint Stated Complaint: HIGH BLOOD SUGAR, RT ANKLE RASH - Chief complaint Chief Complaint: General - History obtained from History obtained from: Patient - Additonal information Additional information: 55yM with pmh DM, intermittently compliant with meds, p/w hyperglycemia from clinic. patient was seen in clinic for R ankle erythema and his fingerstick read as "high" so he was sent to ED for eval. endorses having a "high" glucose reading all this week. +fatigue, increased urinary frequency. denies fevers, back pain, dysuria, n/v abd pain. Redness on R ankle showed up gradually, is located along his sockline and is pruritic with blisters that popped yesterday. Review of Systems Ten Systems: 10 systems reviewed and negative Constitutional: reports: Fatigue. denies: Fever, Chills Cardiac: denies: Chest pain / pressure Respiratory: denies: Dyspnea GI: denies: Abdominal Pain, Nausea, Vomiting : reports: Frequency. denies: Dysuria PD PAST MEDICAL HISTORY - Past Medical History Cardiovascular: Hypertension Respiratory: None Neuro: None Endocrine/Autoimmune: Type 2 diabetes GI: GI bleed, Ulcers, Hepatitis : None HEENT: None Psych: Depression, Anxiety, Panic attacks, Post traumatic stress disorder Musculoskeletal: None Derm: None - Past Surgical History Past Surgical History: No - Present Medications Home Medications: Ambulatory Orders Medication Instructions Recorded Confirmed Sildenafil Citrate 20 - 40 mg PO DAILY PRN 11/23/16 10/21/19 PARoxetine [Paxil] 40 mg PO DAILY tablet 11/25/16 10/21/19 Pantoprazole [Protonix] 40 mg PO BID #60 tablet 11/25/16 10/21/19 Sucralfate [Carafate] 1 gm PO QID #120 tablet 11/25/16 10/21/19 SUMAtriptan [Imitrex] 25 mg PO BID PRN #10 tablet 05/09/18 10/21/19 Buspirone HCl 30 mg PO BID #60 tablet 05/04/19 10/21/19 metFORMIN [Glucophage] 500 mg PO BIDWM #60 tablet 05/04/19 10/21/19 Citalopram Hydrobromide 20 mg PO DAILY #10 tablet 07/10/19 10/21/19 [Citalopram HBr] QUEtiapine [SEROquel] 100 mg PO QPM #10 tablet 07/10/19 10/21/19 lisinopriL [Lisinopril] 5 mg PO DAILY #10 tablet 07/10/19 10/21/19 Amox/Clav 875/125 [Augmentin] 1 each PO Q12H #20 tablet 10/21/19 traMADol [Ultram] 50 mg PO Q4-6H PRN 2 Days #8 tablet 10/21/19 cephALEXin [Keflex] 500 mg PO Q6H #28 capsule 06/13/20 - Allergies Allergies/Adverse Reactions: Allergies Allergy/AdvReac Type Severity Reaction Status Date / Time codeine AdvReac Emesis Verified 06/12/20 21:27 - Social History Does the pt smoke?: No Smoking Status: Never smoker Does the pt drink ETOH?: No Does the pt have substance abuse?: No - Immunizations Immunizations are current?: Yes - POLST Patient has POLST: No PD ED PE NORMAL - Vitals Vital signs reviewed: Yes - General General: Alert and oriented X 3 - HEENT HEENT: Atraumatic, PERRL, EOMI, Other (dry MM) - Neck Neck: Supple, no meningeal sign - Cardiac Cardiac: RRR - Respiratory Respiratory: No respiratory distress - Abdomen Abdomen: Non tender, Non distended - Back Back: No CVA TTP - Derm Derm: Normal color, Other (R ankle with erythema and abraded skin. linear pattern to erythema corresponding to sock line. ) Results - Vitals Vitals: Vital Signs - 24 hr 06/12/20 06/12/20 06/13/20 21:27 23:35 01:00 Temperature 36.6 C Heart Rate 100 91 85 Respiratory 16 14 15 Rate Blood Pressure 132/84 H 112/77 120/84 H O2 Saturation 100 98 97 Oxygen O2 Source Room air - Labs Labs: Laboratory Tests 06/12/20 06/12/20 06/12/20 22:10 22:10 22:19 WBC 5.3 RBC 4.76 Hgb 14.5 Hct 42.5 MCV 89.3 MCH 30.5 MCHC 34.1 RDW 12.0 Plt Count 177 MPV 9.2 Neut # (Auto) 3.6 Lymph # (Auto) 1.0 L [place] # (Auto) 0.4 Eos # (Auto) 0.1 Baso # (Auto) 0.0 Absolute Nucleated RBC 0.00 Nucleated RBC % 0.0 VBG pH VBG pCO2 VBG pO2 VBG HCO3 VBG Total CO2 VBG O2 Saturation VBG Base Excess Sodium 132 L Potassium 4.7 Chloride 93 L Carbon Dioxide 25 Anion Gap 14.0 H BUN 24 H Creatinine 0.8 Estimated GFR (MDRD) 100 Glucose 684 H* POC Whole Bld Glucose Calcium 9.5 Total Bilirubin 0.5 AST 181 H ALT 307 H Alkaline Phosphatase 158 H Total Protein 7.5 Albumin 3.7 Globulin 3.8 Albumin/Globulin Ratio 1.0 Lipase 44 Urine Color YELLOW Urine Clarity CLEAR Urine pH 7.0 Ur Specific [place] <=1.005 Urine Protein NEGATIVE Urine Glucose (UA) >=1000 H Urine Ketones NEGATIVE Urine Occult Blood NEGATIVE Urine Nitrite NEGATIVE Urine Bilirubin NEGATIVE Urine Urobilinogen 0.2 (NORMAL) Ur Leukocyte Esterase NEGATIVE Ur Microscopic Review NOT INDICATED Urine Culture Comments NOT INDICATED Serum Ketones NEGATIVE 06/12/20 06/12/20 06/13/20 22:20 23:48 01:30 WBC RBC Hgb Hct MCV MCH MCHC RDW Plt Count MPV Neut # (Auto) Lymph # (Auto) [place] # (Auto) Eos # (Auto) Baso # (Auto) Absolute Nucleated RBC Nucleated RBC % VBG pH 7.414 H VBG pCO2 40.4 L VBG pO2 85.7 H VBG HCO3 25.3 VBG Total CO2 26.5 VBG O2 Saturation 96.2 H VBG Base Excess 0.7 Sodium Potassium Chloride Carbon Dioxide Anion Gap BUN Creatinine Estimated GFR (MDRD) Glucose POC Whole Bld Glucose 427 H 240 H Calcium Total Bilirubin AST ALT Alkaline Phosphatase Total Protein Albumin Globulin Albumin/Globulin Ratio Lipase Urine Color Urine Clarity Urine pH Ur Specific Henry Urine Protein Urine Glucose (UA) Urine Ketones Urine Occult Blood Urine Nitrite Urine Bilirubin Urine Urobilinogen Ur Leukocyte Esterase Ur Microscopic Review Urine Culture Comments Serum Ketones PD MEDICAL DECISION MAKING - ED course ED course: 55yM with hyperglycemia without signs of DKA/HHS. will control blood glucose and have him follow up with primary doctor. patient will require diabetes education course. basic education about diabetes management discussed and need for regular fingersticks/consistent insulin regimen reinforced. return precautions given. Departure - Departure Disposition: Home, Self Care Clinical Impression: Hyperglycemia, Elevated LFTs, Cellulitis Condition: Good Instructions: Hyperglycemia Prescriptions: cephALEXin [Keflex] 500 mg PO Q6H #28 capsule Comments: You were seen in the ED for increased blood sugar and for a developing skin infection of the foot. Make sure you take your metformin tomorrow morning. Check fingersticks and take your insulin as prescribed by your primary doctor. Return to the ED for new or worsening symptoms. Call to make an appointment with your primary doctor in the morning.
[2020-06-13 01:26] VITALS: BP 120/84
== END 2020-06-13 02:23 | disposition home or self-care (01) ==
LOC: ED 21:24
DX: E11.65 Type 2 diabetes mellitus with hyperglycemia (principal); Z79.84 Long term (current) use of oral hypoglycemic drugs; L03.115 Cellulitis of right lower limb; R74.8 Abnormal levels of other serum enzymes; I10 Essential (primary) hypertension
CPT/HCPCS: 36415; 80053; 81003; 82009; 82803; 83690; 85025; 96360; 96361; 99283; 99284; A9270; J1815; 81001; 87086

== ENCOUNTER 2020-08-30 01:09 | Outpatient (CLI) | payer MEDICAID | END 2020-08-30 01:10 | disposition EMS.NT | LOC: EMS 01:09 | DX: S80.212A Abrasion, left knee, initial encounter (principal); V59.3XXA Occupant (driver) (passenger) of pick-up truck or van injured in unspecified nontraffic accident, initial encounter; Y93.89 Activity, other specified; R73.9 Hyperglycemia, unspecified ==

== ENCOUNTER 2021-01-12 19:50 | Emergency (ER) | payer MEDICAID ==
[2021-01-12 20:25] LABS: BASOPHILS % (AUTO) 0.5 %; EOSINOPHILS # (AUTO) 0.1 10^3/uL (0.0-0.7); EOSINOPHILS % (AUTO) 2.8 %; HCT - HEMATOCRIT 41.2 % (42.0-52.0); HGB - HEMOGLOBIN 13.8 g/dL (14.0-18.0); LYMPHOCYTES # (AUTO) 0.9 10^3/uL (1.5-3.5); LYMPHOCYTES % (AUTO) 20.9 %; MEAN CORPUSCULAR HEMOGLOBIN 31.2 pg (27.0-31.0); MEAN CORPUSCULAR HGB CONC 33.5 g/dL (32.0-36.0); MEAN PLATELET VOLUME 9.5 fL (7.4-11.4); MONOCYTES # (AUTO) 0.3 10^3/uL (0.0-1.0); MONOCYTES % (AUTO) 7.9 %; NEUTROPHILS # (AUTO) 2.9 10^3/uL (1.5-6.6); NEUTROPHILS % (AUTO) 67.2 %; PLT - PLATELET COUNT 147 10^3/uL (130-450); RED BLOOD COUNT 4.43 10^6/uL (4.70-6.10); RED CELL DISTRIBUTION WIDTH 12.7 % (12.0-15.0); WHITE BLOOD COUNT 4.3 x10^3/uL (4.8-10.8)
[2021-01-12 20:26] LABS: VBG BASE EXCESS 0.4 mmol/L (-2 - +2); VBG HCO3 26.6 mmol/L (23-28); VBG OXYGEN SATURATION 49.1 % (60-80); VBG PCO2 48.9 mmHg (41-51); VBG PH 7.353 (7.31-7.41); VBG PO2 26.3 mmHg (25-47); VBG TOTAL CO2 28.1 mmol/L (24-29)
[2021-01-12 20:39] LABS: ALBUMIN 3.4 g/dL (3.2-5.5); ALKALINE PHOSPHATASE 137 IU/L (42-121); ALT ALANINE AMINOTRANSFERASE 304 IU/L (10-60); AST ASPARTATE AMINOTRANSFERASE 220 IU/L (10-42); BILIRUBIN,TOTAL 0.8 mg/dL (0.2-1.0); BUN - BLOOD UREA NITROGEN 20 mg/dL (6-20); CALCIUM 8.7 mg/dL (8.5-10.3); CARBON DIOXIDE - CO2 27 mmol/L (21-32); CHLORIDE 97 mmol/L (101-111); CREATININE 0.9 mg/dL (0.6-1.2); GFR - MDRD 88 (>89); GLUCOSE 480 mg/dL (70-100); MAGNESIUM 1.9 mg/dL (1.7-2.8); PHOSPHORUS 3.9 mg/dL (2.5-4.6); POTASSIUM 4.2 mmol/L (3.5-5.0); SODIUM 133 mmol/L (135-145); TOTAL PROTEIN 6.9 g/dL (6.7-8.2)
[2021-01-12] MEDS ORDERED: INSULIN ASPART 100 UNIT/1 ML 10 ML MDV SUBQ STA (20:55)
[2021-01-12 20:58] LABS: KETONES, SERUM (ACETEST) NEGATIVE (NEGATIVE)
--- NOTE | 2021-01-12 22:44 | ED Physician Documentation ---
History of Present Illness - Stated complaint Stated Complaint: HIGH BLOOD SUGAR - Chief complaint Chief Complaint: Neuro - History obtained from History obtained from: Patient - Additonal information Additional information: 55-year-old man with past medical history of hepatitis C, currently not in treatment, diabetes mellitus, currently undomiciled living in a trailer that he has to evacuate at the end of the month, presents with hyperglycemia and weakness for the past week. Patient states he takes Lantus 30 units every morning and 8 units of NovoLog at mealtimes but often forgets to take his NovoLog. He has not checked a fingerstick glucose "for a long time". Patient states that he is struggling with depression but denies any SI HI AVH. His primary doctor is Dr. Mishra at the [facility]. Endorses increased nighttime urinations but denies nausea, vomiting, abdominal pain, fever, headache. Review of Systems Ten Systems: 10 systems reviewed and negative Constitutional: denies: Fever Cardiac: denies: Chest pain / pressure GI: denies: Abdominal Pain, Nausea, Vomiting : reports: Frequency. denies: Dysuria Neurologic: reports: Generalized weakness PD PAST MEDICAL HISTORY - Past Medical History Cardiovascular: Hypertension Respiratory: None Neuro: None Endocrine/Autoimmune: Type 2 diabetes GI: GI bleed, Ulcers, Hepatitis : None HEENT: None Psych: Depression, Anxiety, Panic attacks, Post traumatic stress disorder Musculoskeletal: None Derm: None - Past Surgical History Past Surgical History: No - Present Medications Home Medications: Ambulatory Orders Medication Instructions Recorded Confirmed Sildenafil Citrate 20 - 40 mg PO DAILY PRN 11/23/16 10/21/19 PARoxetine [Paxil] 40 mg PO DAILY tablet 11/25/16 10/21/19 Pantoprazole [Protonix] 40 mg PO BID #60 tablet 11/25/16 10/21/19 Sucralfate [Carafate] 1 gm PO QID #120 tablet 11/25/16 10/21/19 SUMAtriptan [Imitrex] 25 mg PO BID PRN #10 tablet 05/09/18 10/21/19 Buspirone HCl 30 mg PO BID #60 tablet 05/04/19 10/21/19 metFORMIN [Glucophage] 500 mg PO BIDWM #60 tablet 05/04/19 10/21/19 Citalopram Hydrobromide 20 mg PO DAILY #10 tablet 07/10/19 10/21/19 [Citalopram HBr] QUEtiapine [SEROquel] 100 mg PO QPM #10 tablet 07/10/19 10/21/19 lisinopriL [Lisinopril] 5 mg PO DAILY #10 tablet 07/10/19 10/21/19 Amox/Clav 875/125 [Augmentin] 1 each PO Q12H #20 tablet 10/21/19 traMADol [Ultram] 50 mg PO Q4-6H PRN 2 Days #8 tablet 10/21/19 cephALEXin [Keflex] 500 mg PO Q6H #28 capsule 06/13/20 - Allergies Allergies/Adverse Reactions: Allergies Allergy/AdvReac Type Severity Reaction Status Date / Time codeine AdvReac Emesis Verified 01/12/21 20:08 - Social History Does the pt smoke?: No Smoking Status: Never smoker Does the pt drink ETOH?: No Does the pt have substance abuse?: No - Immunizations Immunizations are current?: Yes - POLST Patient has POLST: No PD ED PE NORMAL - Vitals Vital signs reviewed: Yes - General General: Alert and oriented X 3, No acute distress, Well developed/nourished - HEENT HEENT: Atraumatic, PERRL, EOMI, Moist mucous membranes - Neck Neck: Supple, no meningeal sign - Cardiac Cardiac: RRR - Respiratory Respiratory: No respiratory distress, Clear bilaterally - Abdomen Abdomen: Non tender, Non distended - Back Back: No CVA TTP - Derm Derm: Normal color - Extremities Extremities: No deformity - Neuro Neuro: Alert and oriented X 3 - Psych Psych: Normal mood, Normal affect Results - Vitals Vitals: Vital Signs - 24 hr 01/12/21 01/12/21 20:00 20:36 Temperature 36.0 C L Heart Rate 87 Respiratory 18 16 Rate Blood Pressure 146/96 H 135/85 H O2 Saturation 100 Oxygen O2 Source Room air - Labs Labs: Laboratory Tests 01/12/21 01/12/21 01/12/21 20:22 20:22 20:22 WBC 4.3 L RBC 4.43 L Hgb 13.8 L Hct 41.2 L MCV 93.0 MCH 31.2 H MCHC 33.5 RDW 12.7 Plt Count 147 MPV 9.5 Neut # (Auto) 2.9 Lymph # (Auto) 0.9 L [place] # (Auto) 0.3 Eos # (Auto) 0.1 Baso # (Auto) 0.0 Absolute Nucleated RBC 0.00 Nucleated RBC % 0.0 VBG pH 7.353 VBG pCO2 48.9 VBG pO2 26.3 VBG HCO3 26.6 VBG Total CO2 28.1 VBG O2 Saturation 49.1 L VBG Base Excess 0.4 Sodium 133 L Potassium 4.2 Chloride 97 L Carbon Dioxide 27 Anion Gap 9.0 BUN 20 Creatinine 0.9 Estimated GFR (MDRD) 88 L Glucose 480 H POC Whole Bld Glucose Calcium 8.7 Phosphorus 3.9 Magnesium 1.9 Total Bilirubin 0.8 AST 220 H ALT 304 H Alkaline Phosphatase 137 H Total Protein 6.9 Albumin 3.4 Globulin 3.5 Albumin/Globulin Ratio 1.0 Serum Ketones NEGATIVE 01/12/21 22:24 WBC RBC Hgb Hct MCV MCH MCHC RDW Plt Count MPV Neut # (Auto) Lymph # (Auto) [place] # (Auto) Eos # (Auto) Baso # (Auto) Absolute Nucleated RBC Nucleated RBC % VBG pH VBG pCO2 VBG pO2 VBG HCO3 VBG Total CO2 VBG O2 Saturation VBG Base Excess Sodium Potassium Chloride Carbon Dioxide Anion Gap BUN Creatinine Estimated GFR (MDRD) Glucose POC Whole Bld Glucose 271 H Calcium Phosphorus Magnesium Total Bilirubin AST ALT Alkaline Phosphatase Total Protein Albumin Globulin Albumin/Globulin Ratio Serum Ketones PD MEDICAL DECISION MAKING - ED course ED course: 55-year-old man with poorly controlled diabetes presents with hyperglycemia and weakness for the past week. He does not appear to be in DKA and his sugar has improved with 10 units of NovoLog in the emergency department. Advised him to follow-up with his primary doctor at the [facility] for diabetes education, hepatitis C treatment, and social work evaluation. Return precautions given. Departure - Departure Disposition: 01 Home, Self Care Clinical Impression: Hepatitis, Hyperglycemia Condition: Stable Instructions: Hyperglycemia Comments: You were seen in the emergency department for high blood sugar. We gave you NovoLog (insulin aspart) 10 units in the emergency department which improved your blood sugar significantly. We also checked lab work for your electrolytes, kidney function, liver function, and pancreatic function as well as for anemia and infection. He did not have any concerning findings except for some inflammation in the liver. You need to call tomorrow morning to see your primary doctor at the [facility] to get on treatment for hepatitis C. You also need to coordinate with your doctor to enroll in a diabetes education course. Please return to the emergency department if you have any new or worsening symptoms or other concerns.
[2021-01-12 22:52] VITALS: BP 129/80
== END 2021-01-12 22:52 | disposition home or self-care (01) ==
LOC: ED 19:50
DX: E11.65 Type 2 diabetes mellitus with hyperglycemia (principal); B19.20 Unspecified viral hepatitis C without hepatic coma; R53.1 Weakness; Z79.4 Long term (current) use of insulin
CPT/HCPCS: 36415; 80053; 82009; 82803; 83735; 84100; 85025; 99283; 99284; A9270

== ENCOUNTER 2021-02-06 11:56 | Outpatient (CLI) | payer MEDICAID ==
[2021-02-06 15:23] LABS: BASOPHILS % (AUTO) 0.7 %; EOSINOPHILS # (AUTO) 0.1 10^3/uL (0.0-0.7); EOSINOPHILS % (AUTO) 1.9 %; HCT - HEMATOCRIT 45.8 % (42.0-52.0); HGB - HEMOGLOBIN 15.1 g/dL (14.0-18.0); LYMPHOCYTES % (AUTO) 18.7 %; MEAN CORPUSCULAR HEMOGLOBIN 30.2 pg (27.0-31.0); MEAN CORPUSCULAR VOLUME 91.6 fL (80.0-94.0); MEAN PLATELET VOLUME 10.2 fL (7.4-11.4); MONOCYTES # (AUTO) 0.4 10^3/uL (0.0-1.0); MONOCYTES % (AUTO) 6.7 %; NEUTROPHILS # (AUTO) 3.8 10^3/uL (1.5-6.6); NEUTROPHILS % (AUTO) 71.3 %; PLT - PLATELET COUNT 184 10^3/uL (130-450); RED CELL DISTRIBUTION WIDTH 12.8 % (12.0-15.0); WHITE BLOOD COUNT 5.4 x10^3/uL (4.8-10.8)
[2021-02-06 15:39] LABS: ALBUMIN 3.9 g/dL (3.2-5.5); ALBUMIN/GLOBULIN RATIO 1.1 (1.0-2.2); ALKALINE PHOSPHATASE 113 IU/L (42-121); ALT ALANINE AMINOTRANSFERASE 179 IU/L (10-60); AST ASPARTATE AMINOTRANSFERASE 93 IU/L (10-42); BILIRUBIN,TOTAL 1.1 mg/dL (0.2-1.0); BUN - BLOOD UREA NITROGEN 18 mg/dL (6-20); CALCIUM 8.9 mg/dL (8.5-10.3); CARBON DIOXIDE - CO2 27 mmol/L (21-32); CHLORIDE 97 mmol/L (101-111); CHOLESTEROL 161 mg/dL; CREATININE 0.6 mg/dL (0.6-1.2); GFR - MDRD 140 (>89); HDL CHOLESTEROL 44 mg/dL; LDL CHOLESTEROL,CALCULATED 77 mg/dL; POTASSIUM 3.6 mmol/L (3.5-5.0); SODIUM 134 mmol/L (135-145); TOTAL PROTEIN 7.6 g/dL (6.7-8.2); TRIGLYCERIDES 199 mg/dL; VLDL CHOLESTEROL 40 mg/dL
[2021-02-06 15:40] LABS: CHOL/HDL RATIO 3.7 (<5.0); LDL/HDL RATIO 1.8 (<3.6)
[2021-02-06 15:47] LABS: GLUCOSE 534 mg/dL (70-100)
[2021-02-06 20:19] LABS: ESTIMATED AVERAGE GLUCOSE 378 mg/dL (70-100); HEMOGLOBIN A1c% 14.8 % (4.27-6.07)
== END 2021-02-06 11:57 | disposition home or self-care (01) ==
LOC: LAB 11:56
PROVIDERS: ATTEND Registered Nurse
DX: E11.65 Type 2 diabetes mellitus with hyperglycemia (principal); B18.2 Chronic viral hepatitis C; I10 Essential (primary) hypertension
CPT/HCPCS: 36415; 80053; 80061; 83036; 83721; 85025

== ENCOUNTER 2021-02-13 18:07 | Emergency (ER) | payer MEDICAID ==
--- NOTE | 2021-02-13 18:38 | ED Physician Documentation ---
PD HPI FOCAL NEURO - Stated complaint Stated Complaint: L SIDE FACE, LIPS EYE NUMB/ SLURRED SPEACH - Chief complaint Chief Complaint: Neuro - History obtained from History obtained from: Patient - Additional information Additional information: 55-year-old gentleman with history of remote methamphetamine abuse, hepatitis C and diabetes presents with left-sided facial symptoms starting around 10 or 1020 this morning. He notes paralysis of the left facial musculature. He also notes diplopia. Denies weakness, numbness, tingling in the arms or legs. No headache. Review of Systems Ten Systems: 10 systems reviewed and negative Constitutional: reports: Reviewed and negative Eyes: reports: Reviewed and negative Ears: reports: Reviewed and negative Nose: reports: Reviewed and negative Throat: reports: Reviewed and negative PD PAST MEDICAL HISTORY - Past Medical History Cardiovascular: Hypertension Respiratory: None Neuro: None Endocrine/Autoimmune: Type 2 diabetes GI: GI bleed, Ulcers, Hepatitis : None HEENT: None Psych: Depression, Anxiety, Panic attacks, Post traumatic stress disorder Musculoskeletal: None Derm: None - Past Surgical History Past Surgical History: No - Present Medications Home Medications: Ambulatory Orders Medication Instructions Recorded Confirmed PARoxetine [Paxil] 40 mg PO DAILY tablet 11/25/16 02/13/21 Pantoprazole [Protonix] 40 mg PO BID #60 tablet 11/25/16 02/13/21 Sucralfate [Carafate] 1 gm PO QID #120 tablet 11/25/16 02/13/21 SUMAtriptan [Imitrex] 25 mg PO BID PRN #10 tablet 05/09/18 02/13/21 Buspirone HCl 30 mg PO BID #60 tablet 05/04/19 02/13/21 Citalopram Hydrobromide 20 mg PO DAILY #10 tablet 07/10/19 02/13/21 [Citalopram HBr] QUEtiapine [SEROquel] 100 mg PO QPM #10 tablet 07/10/19 02/13/21 lisinopriL [Lisinopril] 5 mg PO DAILY #10 tablet 07/10/19 02/13/21 Valacyclovir HCl [Valtrex] 1,000 mg PO TID #30 tablet 02/13/21 - Allergies Allergies/Adverse Reactions: Allergies Allergy/AdvReac Type Severity Reaction Status Date / Time codeine AdvReac Emesis Verified 02/13/21 18:14 - Social History Does the pt smoke?: No Smoking Status: Never smoker Does the pt drink ETOH?: No Does the pt have substance abuse?: No - Immunizations Immunizations are current?: Yes - POLST Patient has POLST: No PD ED PE NORMAL - Vitals Vital signs reviewed: Yes - General General: Alert and oriented X 3, No acute distress - HEENT HEENT: PERRL, EOMI - Neck Neck: Supple, no meningeal sign, No bony TTP - Cardiac Cardiac: RRR, No murmur - Respiratory Respiratory: No respiratory distress, Clear bilaterally - Abdomen Abdomen: Normal bowel sounds, Soft, Non tender - Back Back: No CVA TTP, No spinal TTP - Derm Derm: Normal color, Warm and dry - Neuro Neuro: Alert and oriented X 3, Normal speech Eye Opening: Spontaneous Motor: Obeys Commands Verbal: Oriented GCS Score: 15 Results - Vitals Vitals: Vital Signs - 24 hr 02/13/21 02/13/21 02/13/21 18:14 18:45 20:17 Temperature 36.6 C 98.4 C H Heart Rate 115 H 107 H 83 Respiratory 18 18 18 Rate Blood Pressure 135/88 H 132/87 H 137/90 H O2 Saturation 100 97 99 Oxygen O2 Source Room air - Labs Labs: Laboratory Tests 02/13/21 02/13/21 02/13/21 18:43 18:43 18:43 WBC 4.2 L RBC 5.16 Hgb 15.9 Hct 46.8 MCV 90.7 MCH 30.8 MCHC 34.0 RDW 12.4 Plt Count 180 MPV 9.4 Neut # (Auto) 2.7 Lymph # (Auto) 0.9 L [place] # (Auto) 0.5 Eos # (Auto) 0.1 Baso # (Auto) 0.1 Absolute Nucleated RBC 0.00 Nucleated RBC % 0.0 PT 11.7 INR 1.1 Sodium 130 L Potassium 4.3 Chloride 94 L Carbon Dioxide 25 Anion Gap 11.0 BUN 18 Creatinine 0.8 Estimated GFR (MDRD) 100 Glucose 609 H* POC Whole Bld Glucose Calcium 9.2 Nasal Adenovirus (PCR) Nasal B. parapertussis DNA (PCR) Nasal Coronavir 229E PCR Nasal Coronavir HKU1 PCR Nasal Coronavir NL63 PCR Nasal Coronavir OC43 PCR Nasal Enterovir/Rhinovir PCR Nasal Influenza B PCR Nasal Influenza A PCR Nasal Parainfluen 1 PCR Nasal Parainfluen 2 PCR Nasal Parainfluen 3 PCR Nasal Parainfluen 4 PCR Nasal RSV (PCR) Nasal B.pertussis DNA PCR Nasal C.pneumoniae (PCR) Daniel Human Metapneumo PCR Nasal M.pneumoniae (PCR) Nasal SARS-CoV-2 (PCR) 02/13/21 02/13/21 19:11 20:21 WBC RBC Hgb Hct MCV MCH MCHC RDW Plt Count MPV Neut # (Auto) Lymph # (Auto) [place] # (Auto) Eos # (Auto) Baso # (Auto) Absolute Nucleated RBC Nucleated RBC % PT INR Sodium Potassium Chloride Carbon Dioxide Anion Gap BUN Creatinine Estimated GFR (MDRD) Glucose POC Whole Bld Glucose 291 H Calcium Nasal Adenovirus (PCR) NOT DETECTED Nasal B. parapertussis DNA (PCR) NOT DETECTED Nasal Coronavir 229E PCR NOT DETECTED Nasal Coronavir HKU1 PCR NOT DETECTED Nasal Coronavir NL63 PCR NOT DETECTED Nasal Coronavir OC43 PCR NOT DETECTED Nasal Enterovir/Rhinovir PCR NOT DETECTED Nasal Influenza B PCR NOT DETECTED Nasal Influenza A PCR NOT DETECTED Nasal Parainfluen 1 PCR NOT DETECTED Nasal Parainfluen 2 PCR NOT DETECTED Nasal Parainfluen 3 PCR NOT DETECTED Nasal Parainfluen 4 PCR NOT DETECTED Nasal RSV (PCR) NOT DETECTED Nasal B.pertussis DNA PCR NOT DETECTED Nasal C.pneumoniae (PCR) NOT DETECTED Daniel Human Metapneumo PCR NOT DETECTED Nasal M.pneumoniae (PCR) NOT DETECTED Nasal SARS-CoV-2 (PCR) NOT DETECTED PD MEDICAL DECISION MAKING - ED course ED course: 55-year-old gentleman presents with what looks like Henderson's palsy, that said given the diplopia and potential other cranial neuropathy mandates imaging to rule out CVA. He is not a TPA candidate given the time course. Blood sugar noted to be 609. Looking at prior labs it looks like he really runs very poorly controlled in general, with blood sugars usually in the 4-600 range. IV fluids and insulin were ordered. He is not acidemic and his potassium is mid range. 55-year-old gentleman presents with what looks on the surface like a Henderson's palsy that does not spare the forehead. That said he had subjective diplopia, that did not seem to be associated with an extraocular movement palsy seen obviously on exam. After the ministration of IV fluids and insulin his blood sugar was 290. He has appropriate follow-up scheduled and he understands that his diabetes is well out of control but this seems like a chronic phenomenon. After the correction of his blood sugar his diplopia resolved and as such I think he was just having visual symptoms related to his hyperglycemia. Will hold steroids for Henderson's palsy obviously given his hyperglycemia. Departure - Departure Disposition: 01 Home, Self Care Clinical Impression: Hyperglycemia without ketosis, Change in vision, Henderson's palsy Condition: Good Record reviewed to determine appropriate education?: Yes Instructions: ED [place] Palsy Prescriptions: Valacyclovir HCl [Valtrex] 1,000 mg PO TID #30 tablet Comments: You are seen today for Henderson's palsy, we also noted that your blood sugar is way out of control, it was 600 when you checked in. We were able to fix that, continue taking her insulin and checking her blood sugars religiously. Follow- up with your primary care physician next week as scheduled. Return for new or worsening symptoms. You are also noted to have the sensation of double vision on arrival, thankfully this resolved with the administration of IV fluids and insulin suggesting that you did not have a stroke.
[2021-02-13 18:46] LABS: BASOPHILS # (AUTO) 0.1 10^3/uL (0.0-0.1); BASOPHILS % (AUTO) 1.2 %; EOSINOPHILS # (AUTO) 0.1 10^3/uL (0.0-0.7); EOSINOPHILS % (AUTO) 2.4 %; HCT - HEMATOCRIT 46.8 % (42.0-52.0); HGB - HEMOGLOBIN 15.9 g/dL (14.0-18.0); LYMPHOCYTES # (AUTO) 0.9 10^3/uL (1.5-3.5); LYMPHOCYTES % (AUTO) 21.9 %; MEAN CORPUSCULAR HEMOGLOBIN 30.8 pg (27.0-31.0); MEAN CORPUSCULAR VOLUME 90.7 fL (80.0-94.0); MEAN PLATELET VOLUME 9.4 fL (7.4-11.4); MONOCYTES # (AUTO) 0.5 10^3/uL (0.0-1.0); MONOCYTES % (AUTO) 10.7 %; NEUTROPHILS # (AUTO) 2.7 10^3/uL (1.5-6.6); NEUTROPHILS % (AUTO) 63.3 %; PLT - PLATELET COUNT 180 10^3/uL (130-450); RED BLOOD COUNT 5.16 10^6/uL (4.70-6.10); RED CELL DISTRIBUTION WIDTH 12.4 % (12.0-15.0); WHITE BLOOD COUNT 4.2 x10^3/uL (4.8-10.8)
[2021-02-13 18:54] LABS: INR 1.1 (0.8-1.2); PT - PROTHROMBIN TIME 11.7 secs (9.9-12.6)
[2021-02-13 18:57] LABS: CALCIUM 9.2 mg/dL (8.5-10.3); CREATININE 0.8 mg/dL (0.6-1.2); POTASSIUM 4.3 mmol/L (3.5-5.0)
[2021-02-13] MEDS ORDERED: SODIUM CHLORIDE 0.9% 1,000 ML IV STA (18:59)
[2021-02-13] MEDS ORDERED: INSULIN REGULAR HUMAN 100 UNIT/1 ML 10 ML MDV IVP STA (18:59)
[2021-02-13] MEDS ORDERED: IOVERSOL 320 100 ML VIAL IVP ONE ×2 (19:11→20:36)
[2021-02-13 20:07] LABS: B. PARAPERTUSSIS- RESP PCR PAN NOT DETECTED; B. PERTUSSIS- RESP PCR PANEL NOT DETECTED; C. PNEUMONIAE- RESP PCR PANEL NOT DETECTED; CORONAVIRUS 229E-RESP PCR NOT DETECTED; CORONAVIRUS HKU1-RESP PCR NOT DETECTED; CORONAVIRUS NL63-RESP PCR NOT DETECTED; CORONAVIRUS OC43-RESP PCR NOT DETECTED; HUMAN METAPNEUMOVIRUS NOT DETECTED; INFLUENZA A- RESP PCR PANEL NOT DETECTED; INFLUENZA B - RESP PCR PANEL NOT DETECTED; M. PNEUMONIAE- RESP PCR PANEL NOT DETECTED; PARAINFLUENZA VIRUS 1 NOT DETECTED; PARAINFLUENZA VIRUS 2 NOT DETECTED; PARAINFLUENZA VIRUS 3 NOT DETECTED; PARAINFLUENZA VIRUS 4 NOT DETECTED; RHINOVIRUS/ENTEROVIRUS NOT DETECTED; RSV- RESP PCR PANEL NOT DETECTED; SARS-CoV-2 -RESP PCR PANEL NOT DETECTED
--- NOTE | 2021-02-13 20:28 | CT Report ---
PROCEDURE: ANGIO HEAD W/WO INDICATIONS: CVA sx CONTRAST: IV CONTRAST: Optiray 320 ml: 80 PO CONTRAST: *NO PO CONTRAST TECHNIQUE: Precontrast 4.5 mm thick angled axial sections acquired from the foramen magnum to the vertex. Afte r the administration of intravenous contrast, 1 mm thick sections acquired through the [place] is. Postcontrast 4.5 mm thick sections then re-acquired from the foramen magnum to the vertex. 3-di mensional xgsqtaw-yrqnrqaav-fdybgfhtqk (MIP) and/or volume rendering reformats were acquired of the c entral intracranial vasculature. For radiation dose reduction, the following was used: automated ex posure control, adjustment of mA and/or kV according to patient size. COMPARISON: CT of head dated 05/09/2018 FINDINGS: Image quality: Excellent. Anterior circulation: Intracranial internal carotid arteries are normal in size and flow. The flow within the paired anterior cerebral arteries is normal and symmetric. The flow within the middle cer ebral arteries is normal and symmetric. The anterior communicating artery is seen. No aneurysms are seen. Posterior circulation: Visualized portions of the vertebral arteries demonstrate normal caliber, and join to form a normal appearing basilar artery. Flow within the posterior cerebral arteries is norm al and symmetric. No aneurysms are seen. CSF spaces: Ventricles are normal in size and shape. Basal cisterns are patent. No extra-axial flu id collections. Brain: No midline shift. No intracranial bleeds or masses. [place]-white matter interface appears int act. No area of abnormal intracranial enhancement is noted. Skull and face: Calvarium and facial bones appear intact, without suspicious lesions. Sinuses: Visualized sinuses and mastoids are clear. IMPRESSION: 1. No CT evidence of acute intracranial pathology. No area of abnormal intracranial enhancement. 2. No hemodynamically significant stenosis or aneurysm is seen in intracranial circulation. Reviewed by: Curry Zuñiga MD on 02/13/2021 8:27 PM PDT Approved by: Curry Zuñiga MD on 02/13/2021 8:27 PM PDT Station ID: [id number]
--- NOTE | 2021-02-13 20:30 | CT Report ---
PROCEDURE: ANGIO NECK W INDICATIONS: CVA sx CONTRAST: IV CONTRAST: Optiray 320 ml: 80 PO CONTRAST: *NO PO CONTRAST TECHNIQUE: After the administration of intravenous contrast, 1.5 mm axial sections acquired from the aortic arch to the [place]. Coronal 3-D maximum intensity projection (MIP) and/or volume rendering ref ormats were then performed. For radiation dose reduction, the following was used: automated exposur e control, adjustment of mA and/or kV according to patient size. COMPARISON: None. FINDINGS: Image quality: Excellent. Carotid system: The great vessels demonstrate a conventional anatomy as they arise from the aortic a [facility]. The origins of the common carotid arteries appear patent. The common carotid arteries demonstr ate normal calibers and courses. The bifurcation regions appear normal bilaterally. The internal ca rotid arteries demonstrate normal caliber and course. Posterior circulation: The origins of the vertebral arteries appear patent. The more superior porti ons of the vertebral arteries demonstrate normal course and caliber. They join to form a normal appe aring basilar artery. Soft tissues: Visualized neck soft tissues demonstrate no suspicious abnormalities. The thyroid is normal in size. Peripherally calcified right thyroid nodule is seen measures 7 mm in size. Bones: No suspicious bony lesions. Visualized cervical spine appears normally aligned. IMPRESSION: No hemodynamically significant stenosis is seen in bilateral neck arteries. The estimate of stenosis included in the report of the imaging study was calculated using the NASCET method CLINICAL RECOMMENDATION STATEMENTS: In patients <35 years with an ITN detected on CT, MRI, or extrathyroidal ultrasound, the Committee re commends further evaluation with dedicated thyroid ultrasound if the nodule is "e1 cm and has no susp icious imaging features, and if the patient has normal life expectancy. In patients "e35 years with an ITN detected on CT, MRI, or extrathyroidal ultrasound, the Committee r ecommends further evaluation with dedicated thyroid ultrasound if the nodule is "e1.5 cm and has no s uspicious imaging features, and if the patient has normal life expectancy. (ACR, 2014) Reviewed by: Curry Zuñiga MD on 02/13/2021 8:29 PM PDT Approved by: Curry Zuñiga MD on 02/13/2021 8:29 PM PDT Station ID: [id number]
[2021-02-13] MEDS ORDERED: valACYclovir 500 MG TABLET PO STA (20:38)
[2021-02-13 20:41] VITALS: BP 121/83
== END 2021-02-13 20:47 | disposition home or self-care (01) ==
LOC: ED 18:07
DX: G51.0 Bell's palsy (principal); E11.65 Type 2 diabetes mellitus with hyperglycemia; H53.2 Diplopia; I10 Essential (primary) hypertension; B19.20 Unspecified viral hepatitis C without hepatic coma; Z20.822 Contact with and (suspected) exposure to COVID-19
CPT/HCPCS: 0202U; 36415; 70496; 70498; 80048; 85025; 85610; 96360; 99283; 99284; A9270; J1815; Q9967

== ENCOUNTER 2021-02-25 07:00 | Outpatient (CLI) | payer MEDICAID | END 2021-02-25 23:59 | disposition home or self-care (01) | LOC: LAB 07:00 | PROVIDERS: ATTEND Emergency Medicine | DX: G43.909 Migraine, unspecified, not intractable, without status migrainosus (principal); Z20.822 Contact with and (suspected) exposure to COVID-19 ==

== ENCOUNTER 2021-02-26 06:09 | Emergency (ER) | payer MEDICAID ==
[2021-02-26] MEDS ORDERED: INSULIN REGULAR HUMAN 100 UNIT/1 ML 10 ML MDV IVP STA (06:43)
[2021-02-26] MEDS ORDERED: SODIUM CHLORIDE 0.9% 1,000 ML IV STA ×2 (06:43→07:18)
[2021-02-26] MEDS ORDERED: KETOROLAC 30 MG/ML VIAL IVP STA (06:43)
--- NOTE | 2021-02-26 07:03 | ED Physician Documentation ---
PD HPI HEADACHE - Stated complaint Stated Complaint: HEADACHE - Chief complaint Chief Complaint: Neuro - History obtained from History obtained from: Patient - History of Present Illness Timing - onset: Last night, Yesterday Timing - onset during: Light activity Timing - duration: Days (1) Timing - details: Gradual onset, Still present Worst headache ever?: No: Worst headache ever? Location: Right Quality: Throbbing, Aching Associated symptoms: Nausea, Other (frontal and right pressure feeling.). No: Fever, Stiff neck, Weakness, Numbness Worsened by: Light. No: Noise Contributing factors: No: Hypertension, Recent illness, Trauma Similar symptoms before: Has not had sx before (no history of migraines) Review of Systems Constitutional: denies: Fever, Chills Eyes: denies: Decreased vision, Photophobia Nose: reports: Sinus pressure / pain. denies: Rhinorrhea / runny nose, Congestion Throat: denies: Sore throat Respiratory: denies: Cough GI: reports: Nausea. denies: Abdominal Pain, Vomiting Musculoskeletal: denies: Neck pain, Back pain Neurologic: denies: Focal weakness, Numbness PD PAST MEDICAL HISTORY - Past Medical History Past Medical History: Yes Cardiovascular: Hypertension Respiratory: None Neuro: None Endocrine/Autoimmune: Type 2 diabetes GI: GI bleed, Ulcers, Hepatitis : None HEENT: None Psych: Depression, Anxiety, Panic attacks, Post traumatic stress disorder Musculoskeletal: None Derm: None - Past Surgical History Past Surgical History: No - Present Medications Home Medications: Ambulatory Orders Medication Instructions Recorded Confirmed PARoxetine [Paxil] 40 mg PO DAILY tablet 11/25/16 02/13/21 Pantoprazole [Protonix] 40 mg PO BID #60 tablet 11/25/16 02/13/21 Sucralfate [Carafate] 1 gm PO QID #120 tablet 11/25/16 02/13/21 SUMAtriptan [Imitrex] 25 mg PO BID PRN #10 tablet 05/09/18 02/13/21 Buspirone HCl 30 mg PO BID #60 tablet 05/04/19 02/13/21 Citalopram Hydrobromide 20 mg PO DAILY #10 tablet 07/10/19 02/13/21 [Citalopram HBr] QUEtiapine [SEROquel] 100 mg PO QPM #10 tablet 07/10/19 02/13/21 lisinopriL [Lisinopril] 5 mg PO DAILY #10 tablet 07/10/19 02/13/21 Valacyclovir HCl [Valtrex] 1,000 mg PO TID #30 tablet 02/13/21 Doxycycline Hyclate 100 mg PO BID 7 Days #14 tab 02/26/21 Fluticasone Propionate 15.8 ml NS BID 30 Days #1 spray 02/26/21 HYDROcod/ACETAM 5/325 [[place] 5/325] 1 ea PO Q6H PRN #14 tablet 02/26/21 - Allergies Allergies/Adverse Reactions: Allergies Allergy/AdvReac Type Severity Reaction Status Date / Time codeine AdvReac Emesis Verified 02/26/21 06:25 - Social History Does the pt smoke?: No Smoking Status: Never smoker Does the pt drink ETOH?: No Does the pt have substance abuse?: No - Immunizations Immunizations are current?: Yes - POLST Patient has POLST: No PD ED PE NORMAL - Vitals Vital signs reviewed: Yes - General General: Alert and oriented X 3, Well developed/nourished - HEENT HEENT: PERRL, EOMI, Other (some light sensitive) - Neck Neck: Supple, no meningeal sign, No adenopathy - Cardiac Cardiac: RRR, No murmur - Respiratory Respiratory: Clear bilaterally - Derm Derm: Normal color, Warm and dry - Neuro Neuro: Alert and oriented X 3, No motor deficit, No sensory deficit, Normal speech Results - Vitals Vitals: Vital Signs - 24 hr 02/26/21 02/26/21 02/26/21 06:21 07:39 09:29 Temperature 36.0 C L 36.9 C Heart Rate 88 81 81 Respiratory 18 14 16 Rate Blood Pressure 160/90 H 137/87 H 138/85 H O2 Saturation 100 98 98 Oxygen O2 Source Room air - Labs Labs: Laboratory Tests 02/26/21 02/26/21 02/26/21 06:44 06:44 06:44 WBC 5.9 RBC 4.87 Hgb 14.9 Hct 44.8 MCV 92.0 MCH 30.6 MCHC 33.3 RDW 12.5 Plt Count 175 MPV 9.7 Neut # (Auto) 4.2 Lymph # (Auto) 1.0 L [place] # (Auto) 0.5 Eos # (Auto) 0.1 Baso # (Auto) 0.0 Absolute Nucleated RBC 0.00 Nucleated RBC % 0.0 Sodium 129 L Potassium 4.6 Chloride 93 L Carbon Dioxide 26 Anion Gap 10.0 BUN 15 Creatinine 0.8 Estimated GFR (MDRD) 100 Glucose 647 H* POC Whole Bld Glucose Calcium 8.7 Total Bilirubin 0.5 AST 84 H ALT 170 H Alkaline Phosphatase 120 C-Reactive Protein 1.2 H Total Protein 7.3 Albumin 3.6 Globulin 3.7 Albumin/Globulin Ratio 1.0 Lipase 61 H Serum Ketones NEGATIVE 02/26/21 07:50 WBC RBC Hgb Hct MCV MCH MCHC RDW Plt Count MPV Neut # (Auto) Lymph # (Auto) [place] # (Auto) Eos # (Auto) Baso # (Auto) Absolute Nucleated RBC Nucleated RBC % Sodium Potassium Chloride Carbon Dioxide Anion Gap BUN Creatinine Estimated GFR (MDRD) Glucose POC Whole Bld Glucose 259 H Calcium Total Bilirubin AST ALT Alkaline Phosphatase C-Reactive Protein Total Protein Albumin Globulin Albumin/Globulin Ratio Lipase Serum Ketones - Rads (name of study) head CT Radiology: Prelim report reviewed (no acute process intracranial; right maxillary and ethmoid sinusitis.), See rad report PD MEDICAL DECISION MAKING - ED course Complexity details: considered differential (feeling much improved with IV toradol, compazine and dilaudid. Will cover sinusitis with nasaal spray and abx. ), d/w patient Departure - Departure Disposition: 01 Home, Self Care Clinical Impression: Right-sided headache Sinusitis, acute Qualifiers: Sinusitis location: maxillary Recurrence: non-recurrent Qualified Code(s): J01.00 - Acute maxillary sinusitis, unspecified Condition: Stable Record reviewed to determine appropriate education?: Yes Instructions: ED Cephalgia Unspecified, ED Sinusitis Abx Tx Prescriptions: Doxycycline Hyclate 100 mg PO BID 7 Days #14 tab Fluticasone Propionate 15.8 ml NS BID 30 Days #1 spray HYDROcod/ACETAM 5/325 [[place] 5/325] 1 ea PO Q6H PRN #14 tablet PRN Reason: Pain Comments: This seems likely to be either a migraine type headache or sinus headache. Your CT scan shows normal anatomy within the brain compartment. You do have fluid in the maxillary and ethmoid sinuses on the right (sinus inflammation or infection) and may be causing some of your headache and symptoms. Stay well-hydrated. Continue usual other medicines. Add fluticasone nasal spray on the right side twice daily to try to help inflammation in the sinuses. Doxycycline antibiotic twice daily for a week. Add Tylenol or hydrocodone if needed for pains. I transmitted your prescription to [facility] in [place]. I am prescribing a short course of narcotic pain medication for you. These are potentially dangerous and addictive medications that should be used carefully. These medications may constipate you. Take an oflp-cbm-zjrckfx stool softener such as docusate twice daily with plenty of water while taking these medications. If you go 24 hours without a bowel movement, take [id number]-[id number] MiraLAX, per package instructions. Do not drink or drive while taking these medications. If you received narcotic or sedating medications while in the emergency department do not drive for 24 hours. Store this medication in a safe, secure place and out of reach of children. It is a violation of federal law to give or sell this medication to another person or to use in a manner other than prescribed. The ED will not refill narcotic prescriptions, including prescriptions lost or stolen. You can dispose of unwanted medications at the [facility]'s office or at several pharmacies such as [facility]. Discharge Date/Time: 02/26/21 09:48
[2021-02-26 07:07] LABS: ALBUMIN 3.6 g/dL (3.2-5.5); BASOPHILS % (AUTO) 0.7 %; BILIRUBIN,TOTAL 0.5 mg/dL (0.2-1.0); CALCIUM 8.7 mg/dL (8.5-10.3); CREATININE 0.8 mg/dL (0.6-1.2); EOSINOPHILS # (AUTO) 0.1 10^3/uL (0.0-0.7); EOSINOPHILS % (AUTO) 1.5 %; HCT - HEMATOCRIT 44.8 % (42.0-52.0); HGB - HEMOGLOBIN 14.9 g/dL (14.0-18.0); LYMPHOCYTES % (AUTO) 16.6 %; MEAN CORPUSCULAR HEMOGLOBIN 30.6 pg (27.0-31.0); MEAN CORPUSCULAR HGB CONC 33.3 g/dL (32.0-36.0); MEAN PLATELET VOLUME 9.7 fL (7.4-11.4); MONOCYTES # (AUTO) 0.5 10^3/uL (0.0-1.0); MONOCYTES % (AUTO) 9.2 %; NEUTROPHILS # (AUTO) 4.2 10^3/uL (1.5-6.6); NEUTROPHILS % (AUTO) 70.8 %; PLT - PLATELET COUNT 175 10^3/uL (130-450); POTASSIUM 4.6 mmol/L (3.5-5.0); RED BLOOD COUNT 4.87 10^6/uL (4.70-6.10); RED CELL DISTRIBUTION WIDTH 12.5 % (12.0-15.0); TOTAL PROTEIN 7.3 g/dL (6.7-8.2); WHITE BLOOD COUNT 5.9 x10^3/uL (4.8-10.8)
[2021-02-26] MEDS ORDERED: diphenhydrAMINE INJ 50 MG/ML VIAL IVP STA (07:18)
[2021-02-26] MEDS ORDERED: HYDROmorphone 0.5 MG/0.5 ML SYRINGE IVP STA (07:18)
[2021-02-26] MEDS ORDERED: PROCHLORPERAZINE 10 MG/2 ML VIAL IVP STA (07:18)
[2021-02-26 07:20] LABS: KETONES, SERUM (ACETEST) NEGATIVE (NEGATIVE)
[2021-02-26 07:35] LABS: CRP - C-REACTIVE PROTEIN 1.2 mg/dL (0-1.0)
[2021-02-26] MEDS ORDERED: DOXYCYCLINE 100 MG TABLET PO STA (07:42)
--- NOTE | 2021-02-26 07:54 | CT Report ---
PROCEDURE: HEAD WO INDICATIONS: headache TECHNIQUE: Noncontrast 4.5 mm thick angled axial sections acquired from the foramen magnum to the vertex. For r adiation dose reduction, the following was used: automated exposure control, adjustment of mA and/or kV according to patient size. COMPARISON: None. FINDINGS: Image quality: Excellent. CSF spaces: Basal cisterns are patent. No extra-axial fluid collections. Ventricles are normal in size and shape. Brain: No midline shift. No intracranial masses or hemorrhage. [place]-white matter interface is norm al. Skull and face: Calvarium and visualized facial bones are intact, without suspicious lesions. Sinuses: Mucosal thickening noted in the right maxillary sinus and scattered to the right ethmoid air cells. The mastoids are clear. IMPRESSION: 1. No acute intracranial disease process. 2. Right maxillary and ethmoid sinusitis. Reviewed by: Lauren Russo MD, PhD on 02/26/2021 7:53 AM PDT Approved by: Lauren Russo MD, PhD on 02/26/2021 7:53 AM PDT Station ID: [id number]
[2021-02-26 09:29] VITALS: BP 138/85
== END 2021-02-26 09:48 | disposition home or self-care (01) ==
LOC: ED 06:09
DX: J01.00 Acute maxillary sinusitis, unspecified (principal); I10 Essential (primary) hypertension; E11.9 Type 2 diabetes mellitus without complications
CPT/HCPCS: 36415; 70450; 80053; 82009; 83690; 85025; 86140; 96374; 96375; 99284; A9270; J1170; J1200; J1815

== ENCOUNTER 2022-02-12 10:58 | Outpatient (CLI) | payer MEDICAID ==
[2022-02-12 17:53] LABS: BASOPHILS # (AUTO) 0.1 10^3/uL (0.0-0.1); EOSINOPHILS # (AUTO) 0.1 10^3/uL (0.0-0.7); EOSINOPHILS % (AUTO) 2.5 %; HCT - HEMATOCRIT 45.8 % (42.0-52.0); HGB - HEMOGLOBIN 15.6 g/dL (14.0-18.0); LYMPHOCYTES % (AUTO) 19.5 %; MEAN CORPUSCULAR HEMOGLOBIN 30.8 pg (27.0-31.0); MEAN CORPUSCULAR HGB CONC 34.1 g/dL (32.0-36.0); MEAN CORPUSCULAR VOLUME 90.5 fL (80.0-94.0); MEAN PLATELET VOLUME 9.9 fL (7.4-11.4); MONOCYTES # (AUTO) 0.5 10^3/uL (0.0-1.0); MONOCYTES % (AUTO) 8.8 %; NEUTROPHILS # (AUTO) 3.6 10^3/uL (1.5-6.6); NEUTROPHILS % (AUTO) 67.6 %; PLT - PLATELET COUNT 188 10^3/uL (130-450); RED BLOOD COUNT 5.06 10^6/uL (4.70-6.10); RED CELL DISTRIBUTION WIDTH 12.5 % (12.0-15.0); WHITE BLOOD COUNT 5.2 x10^3/uL (4.8-10.8)
[2022-02-12 18:01] LABS: ALBUMIN 3.8 g/dL (3.2-5.5); BILIRUBIN,TOTAL 0.3 mg/dL (0.2-1.0); CALCIUM 8.9 mg/dL (8.5-10.3); CREATININE 0.7 mg/dL (0.6-1.2); POTASSIUM 4.1 mmol/L (3.5-5.0); TOTAL PROTEIN 7.6 g/dL (6.7-8.2)
[2022-02-12 18:18] LABS: THYROID STIMULATING HORMONE 0.63 uIU/mL (0.34-5.60)
[2022-02-12 20:02] LABS: ESTIMATED AVERAGE GLUCOSE 263 mg/dL (70-100); HEMOGLOBIN A1c% 10.8 % (4.27-6.07)
== END 2022-02-12 10:59 | disposition home or self-care (01) ==
LOC: LAB.N 10:58
PROVIDERS: ATTEND Physician Assistant
DX: E11.8 Type 2 diabetes mellitus with unspecified complications (principal); Z51.81 Encounter for therapeutic drug level monitoring
CPT/HCPCS: 36415; 80050; 83036

== ENCOUNTER 2022-02-20 18:45 | Outpatient (CLI) | payer MEDICAID | END 2022-02-20 18:46 | disposition critical access hospital (66) | LOC: EMS 18:45 | DX: R50.9 Fever, unspecified (principal); E11.65 Type 2 diabetes mellitus with hyperglycemia; Z79.4 Long term (current) use of insulin | CPT/HCPCS: A0425; A0427; A0999 ==

== ENCOUNTER 2022-02-20 19:07 | Emergency (ER) | payer MEDICAID ==
[2022-02-20 19:47] LABS: BASOPHILS % (AUTO) 0.6 %; EOSINOPHILS # (AUTO) 0.1 10^3/uL (0.0-0.7); EOSINOPHILS % (AUTO) 1.9 %; HCT - HEMATOCRIT 43.1 % (42.0-52.0); HGB - HEMOGLOBIN 15.1 g/dL (14.0-18.0); LYMPHOCYTES # (AUTO) 0.9 10^3/uL (1.5-3.5); LYMPHOCYTES % (AUTO) 16.6 %; MEAN CORPUSCULAR HEMOGLOBIN 31.2 pg (27.0-31.0); MEAN PLATELET VOLUME 9.3 fL (7.4-11.4); MONOCYTES # (AUTO) 0.5 10^3/uL (0.0-1.0); MONOCYTES % (AUTO) 9.9 %; NEUTROPHILS # (AUTO) 3.8 10^3/uL (1.5-6.6); NEUTROPHILS % (AUTO) 70.6 %; PLT - PLATELET COUNT 159 10^3/uL (130-450); RED BLOOD COUNT 4.84 10^6/uL (4.70-6.10); RED CELL DISTRIBUTION WIDTH 12.3 % (12.0-15.0); WHITE BLOOD COUNT 5.4 x10^3/uL (4.8-10.8)
[2022-02-20 19:53] LABS: KETONES, SERUM (ACETEST) NEGATIVE (NEGATIVE); VBG BASE EXCESS 2.2 mmol/L (-2 - +2); VBG HCO3 26.4 mmol/L (23-28); VBG OXYGEN SATURATION 88.2 % (60-80); VBG PCO2 39.6 mmHg (41-51); VBG PH 7.441 (7.31-7.41); VBG PO2 50.3 mmHg (25-47); VBG TOTAL CO2 27.6 mmol/L (24-29)
[2022-02-20 19:59] LABS: ALBUMIN 3.3 g/dL (3.2-5.5); ALBUMIN/GLOBULIN RATIO 0.8 (1.0-2.2); ALKALINE PHOSPHATASE 121 IU/L (42-121); ALT ALANINE AMINOTRANSFERASE 162 IU/L (10-60); AST ASPARTATE AMINOTRANSFERASE 88 IU/L (10-42); BILIRUBIN,TOTAL 0.5 mg/dL (0.2-1.0); BUN - BLOOD UREA NITROGEN 15 mg/dL (6-20); CALCIUM 8.6 mg/dL (8.5-10.3); CARBON DIOXIDE - CO2 25 mmol/L (21-32); CHLORIDE 100 mmol/L (101-111); CREATININE 0.7 mg/dL (0.6-1.2); GFR - MDRD 116 (>89); GLUCOSE 303 mg/dL (70-100); POTASSIUM 3.9 mmol/L (3.5-5.0); SODIUM 132 mmol/L (135-145); TOTAL PROTEIN 7.2 g/dL (6.7-8.2)
--- NOTE | 2022-02-20 20:07 | ED Physician Documentation ---
History of Present Illness - Stated complaint Stated Complaint: FEELING ILL, HIGH GLUCOSE - Chief complaint Chief Complaint: General - History obtained from History obtained from: Patient - History of Present Illness Timing: How many days ago (3) Pain level now: 5 Improved by: no ameliorating factors Worsened by: no exacerbating factors - Additonal information Additional information: BIBA from clinic. Patient c/o 3 days of generalized malaise, myalgias and arthralgias. He describes waxing and waning chest pain over past 2-3 days as well, but without specific timeframes (such as if it is episodic or constant, how long episodes last if episodic). Was seen in clinic this afternoon, blood sugar noted to be 515. Notes from the clinic (in ED at bedside) indicate he tested negative on POC COVID and influenza (A/B) tests. Sent to ED via EMS due to generalized weakness and hyperglycemia. On arrival to ED, blood sugar 408. Patient unsure if he has had fevers at home as he did not check. Denies dyspnea . He says he does not have chest pain at the time of this evaluation. Review of Systems Constitutional: reports: Myalgias, Fatigue. denies: Chills, Sweats Cardiac: reports: Reviewed and negative Respiratory: reports: Reviewed and negative GI: reports: Reviewed and negative : denies: Dysuria, Frequency Musculoskeletal: reports: Extremity pain (generalized myalgias), Joint pain (diffuse and symmetric joint aching) Neurologic: reports: Generalized weakness. denies: Focal weakness, Numbness, Confused, Altered mental status, Headache, Head injury Endocrine: denies: Polydypsia, Polyuria PD PAST MEDICAL HISTORY - Past Medical History Past Medical History: Yes Cardiovascular: Hypertension Respiratory: None Neuro: None Endocrine/Autoimmune: Type 2 diabetes GI: GI bleed, Ulcers, Hepatitis : None HEENT: None Psych: Depression, Anxiety, Panic attacks, Post traumatic stress disorder Musculoskeletal: None Derm: None - Past Surgical History Past Surgical History: No - Present Medications Home Medications: Ambulatory Orders Medication Instructions Recorded Confirmed PARoxetine [Paxil] 40 mg PO DAILY tablet 11/25/16 02/20/22 Pantoprazole [Protonix] 40 mg PO BID #60 tablet 11/25/16 02/20/22 Sucralfate [Carafate] 1 gm PO QID #120 tablet 11/25/16 02/20/22 SUMAtriptan [Imitrex] 25 mg PO BID PRN #10 tablet 05/09/18 02/20/22 Buspirone HCl 30 mg PO BID #60 tablet 05/04/19 02/20/22 Citalopram Hydrobromide 20 mg PO DAILY #10 tablet 07/10/19 02/20/22 [Citalopram HBr] QUEtiapine [SEROquel] 100 mg PO QPM #10 tablet 07/10/19 02/20/22 lisinopriL [Lisinopril] 5 mg PO DAILY #10 tablet 07/10/19 02/20/22 Valacyclovir HCl [Valtrex] 1,000 mg PO TID #30 tablet 02/13/21 02/20/22 Doxycycline Hyclate 100 mg PO BID 7 Days #14 tab 02/26/21 02/20/22 Fluticasone Propionate 15.8 ml NS BID 30 Days #1 spray 02/26/21 02/20/22 HYDROcod/ACETAM 5/325 [[place] 5/325] 1 ea PO Q6H PRN #14 tablet 02/26/21 02/20/22 Insulin Glargine [Lantus Solostar] 02/20/22 - Allergies Allergies/Adverse Reactions: Allergies Allergy/AdvReac Type Severity Reaction Status Date / Time codeine AdvReac Emesis Verified 02/20/22 19:14 - Social History Does the pt smoke?: No Smoking Status: Never smoker Does the pt drink ETOH?: No Does the pt have substance abuse?: No - Immunizations Immunizations are current?: Yes - POLST Patient has POLST: No PD ED PE NORMAL - Vitals Vital signs reviewed: Yes - General General: Alert and oriented X 3, No acute distress, Well developed/nourished - HEENT HEENT: Other (tacky/pasty mucous membranes) - Neck Neck: Supple, no meningeal sign - Cardiac Cardiac: RRR, No murmur - Respiratory Respiratory: No respiratory distress, Clear bilaterally - Abdomen Abdomen: Soft, Non tender - Derm Derm: Normal color, Warm and dry - Extremities Extremities: No edema - Neuro Neuro: Alert and oriented X 3, 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, No motor deficit, No sensory deficit, Normal speech Eye Opening: To Voice (asleep, awake easily to voice) Motor: Obeys Commands Verbal: Oriented GCS Score: 14 Results - Vitals Vitals: Vital Signs - 24 hr 02/20/22 02/20/22 02/20/22 19:14 19:46 20:16 Temperature 37.4 C Heart Rate 91 98 94 Respiratory 21 21 13 Rate Blood Pressure 138/92 H 135/86 H 135/86 H O2 Saturation 96 100 100 02/20/22 02/20/22 02/20/22 20:30 21:00 21:30 Temperature Heart Rate 89 97 104 H Respiratory 15 20 12 Rate Blood Pressure 133/84 H 131/90 H 133/86 H O2 Saturation 99 100 98 02/20/22 22:10 Temperature 37.1 C Heart Rate 99 Respiratory 15 Rate Blood Pressure 128/75 O2 Saturation 99 Oxygen O2 Source Room air - EKG (time done) No standard instances Rate: Rate (enter#) (90) Rhythm: NSR [place]: Normal, LAD Intervals: Normal NE, RBBB QRS: Normal Ischemia: Normal ST segments Compare to prior EKG: Changed from prior EKG (New RBBB compared to most recent availalble EKG (11/22/16)) Computer interpretation: Disagree with computer (No ST elevations) - Labs Labs: Laboratory Tests 02/20/22 02/20/22 02/20/22 19:37 19:37 19:37 WBC 5.4 RBC 4.84 Hgb 15.1 Hct 43.1 MCV 89.0 MCH 31.2 H MCHC 35.0 RDW 12.3 Plt Count 159 MPV 9.3 Neut # (Auto) 3.8 Lymph # (Auto) 0.9 L [place] # (Auto) 0.5 Eos # (Auto) 0.1 Baso # (Auto) 0.0 Absolute Nucleated RBC 0.00 Nucleated RBC % 0.0 VBG pH VBG pCO2 VBG pO2 VBG HCO3 VBG Total CO2 VBG O2 Saturation VBG Base Excess Sodium 132 L Potassium 3.9 Chloride 100 L Carbon Dioxide 25 Anion Gap 7.0 BUN 15 Creatinine 0.7 Estimated GFR (MDRD) 116 Glucose 303 H Lactic Acid 1.9 Calcium 8.6 Total Bilirubin 0.5 AST 88 H ALT 162 H Alkaline Phosphatase 121 Total Protein 7.2 Albumin 3.3 Globulin 3.9 Albumin/Globulin Ratio 0.8 L Urine Color Urine Clarity Urine pH Ur Specific [place] Urine Protein Urine Glucose (UA) Urine Ketones Urine Occult Blood Urine Nitrite Urine Bilirubin Urine Urobilinogen Ur Leukocyte Esterase Urine RBC Urine WBC Ur Squamous Epith Cells Urine Bacteria Urine Culture Comments Nasal Adenovirus (PCR) Nasal B. parapertussis DNA (PCR) Nasal Coronavir 229E PCR Nasal Coronavir HKU1 PCR Nasal Coronavir NL63 PCR Nasal Coronavir OC43 PCR Nasal Enterovir/Rhinovir PCR Nasal Influenza B PCR Nasal Influenza A PCR Nasal Parainfluen 1 PCR Nasal Parainfluen 2 PCR Nasal Parainfluen 3 PCR Nasal Parainfluen 4 PCR Nasal RSV (PCR) Nasal B.pertussis DNA PCR Nasal C.pneumoniae (PCR) Daniel Human Metapneumo PCR Nasal M.pneumoniae (PCR) Nasal SARS-CoV-2 (PCR) Serum Ketones NEGATIVE 02/20/22 02/20/22 02/20/22 19:37 19:55 20:52 WBC RBC Hgb Hct MCV MCH MCHC RDW Plt Count MPV Neut # (Auto) Lymph # (Auto) [place] # (Auto) Eos # (Auto) Baso # (Auto) Absolute Nucleated RBC Nucleated RBC % VBG pH 7.441 H VBG pCO2 39.6 L VBG pO2 50.3 H VBG HCO3 26.4 VBG Total CO2 27.6 VBG O2 Saturation 88.2 H VBG Base Excess 2.2 H Sodium Potassium Chloride Carbon Dioxide Anion Gap BUN Creatinine Estimated GFR (MDRD) Glucose Lactic Acid Calcium Total Bilirubin AST ALT Alkaline Phosphatase Total Protein Albumin Globulin Albumin/Globulin Ratio Urine Color YELLOW Urine Clarity CLEAR Urine pH 6.0 Ur Specific [place] 1.015 Urine Protein NEGATIVE Urine Glucose (UA) >=1000 H Urine Ketones NEGATIVE Urine Occult Blood NEGATIVE Urine Nitrite NEGATIVE Urine Bilirubin NEGATIVE Urine Urobilinogen 0.2 (NORMAL) Ur Leukocyte Esterase NEGATIVE Urine RBC 0-5 Urine WBC 0-3 Ur Squamous Epith Cells RARE Squamous Urine Bacteria None Seen Urine Culture Comments NOT INDICATED Nasal Adenovirus (PCR) NOT DETECTED Nasal B. parapertussis DNA (PCR) NOT DETECTED Nasal Coronavir 229E PCR NOT DETECTED Nasal Coronavir HKU1 PCR NOT DETECTED Nasal Coronavir NL63 PCR NOT DETECTED Nasal Coronavir OC43 PCR NOT DETECTED Nasal Enterovir/Rhinovir PCR NOT DETECTED Nasal Influenza B PCR NOT DETECTED Nasal Influenza A PCR NOT DETECTED Nasal Parainfluen 1 PCR NOT DETECTED Nasal Parainfluen 2 PCR NOT DETECTED Nasal Parainfluen 3 PCR NOT DETECTED Nasal Parainfluen 4 PCR NOT DETECTED Nasal RSV (PCR) NOT DETECTED Nasal B.pertussis DNA PCR NOT DETECTED Nasal C.pneumoniae (PCR) NOT DETECTED Daniel Human Metapneumo PCR NOT DETECTED Nasal M.pneumoniae (PCR) NOT DETECTED Nasal SARS-CoV-2 (PCR) NOT DETECTED Serum Ketones - Rads (name of study) chest xray Radiology: Prelim report reviewed, See rad report PD MEDICAL DECISION MAKING - ED course Complexity details: reviewed old records, reviewed results, re-evaluated patient, considered differential, d/w patient ED course: Presents with generalized malaise, fatigue, myalgias and arthralgias. He is afebrile in ED and with unremarkable blood test results. His blood sugar is 303 on our blood draw, normal CBC, negative serum ketones, UA unremarkable except for glucosuria (but no ketonuria), and normal lactate. He is given one liter NS IV and 15mg IV toradol (requests something for the body aches). On reevaluation he is in NAD, moist mucous membranes on exam. Results reviewed with patient. Return precautions discussed. I discussed with him that the cause of his symptoms is not apparent at this time, but there are no concerning findings on testing tonight. Patient says he feels better and is comfortable with d/c home. Suspect viral syndrome Departure - Departure Disposition: 01 Home, Self Care Clinical Impression: Hyperglycemia without ketosis, Generalized body aches Condition: Good Instructions: ED Hyperglycemia Diabetic, ED Muscle Aching Follow-Up: Staci Rodriguez PA [Primary Care Provider] - Comments: The results of toncecilio's tests are reassuring. Your blood sugar was 303 on blood testing tonight (down from over 500 in clinic). The other tests performed do not have any diagnostic results; the cause of your symptoms remains unclear at this time. Further emergent testing is unlikely to yield a diagnosis or indicate a specific treatment (such as an antibiotic). Follow up with your primary care provider, ideally in 2 days if this can be arranged. Discharge Date/Time: 02/20/22 22:11
[2022-02-20] MEDS ORDERED: SODIUM CHLORIDE 0.9% 1,000 ML IV STA (20:23)
[2022-02-20 20:54] LABS: B. PARAPERTUSSIS- RESP PCR PAN NOT DETECTED; B. PERTUSSIS- RESP PCR PANEL NOT DETECTED; C. PNEUMONIAE- RESP PCR PANEL NOT DETECTED; CORONAVIRUS 229E-RESP PCR NOT DETECTED; CORONAVIRUS HKU1-RESP PCR NOT DETECTED; CORONAVIRUS NL63-RESP PCR NOT DETECTED; CORONAVIRUS OC43-RESP PCR NOT DETECTED; HUMAN METAPNEUMOVIRUS NOT DETECTED; INFLUENZA A- RESP PCR PANEL NOT DETECTED; INFLUENZA B - RESP PCR PANEL NOT DETECTED; M. PNEUMONIAE- RESP PCR PANEL NOT DETECTED; PARAINFLUENZA VIRUS 1 NOT DETECTED; PARAINFLUENZA VIRUS 2 NOT DETECTED; PARAINFLUENZA VIRUS 3 NOT DETECTED; PARAINFLUENZA VIRUS 4 NOT DETECTED; RHINOVIRUS/ENTEROVIRUS NOT DETECTED; RSV- RESP PCR PANEL NOT DETECTED; SARS-CoV-2 -RESP PCR PANEL NOT DETECTED
[2022-02-20 21:00] LABS: BILIRUBIN,URINE NEGATIVE (NEGATIVE); GLUCOSE, URINE (UA) >=1000 mg/dL (NEGATIVE); KETONES,URINE (UA) NEGATIVE (NEGATIVE); LEUKOCYTE ESTERASE, URINE NEGATIVE (NEGATIVE); NITRITE,URINE NEGATIVE (NEGATIVE); OCCULT BLOOD,URINE NEGATIVE (NEGATIVE); PROTEIN,URINE NEGATIVE (NEGATIVE); UROBILINOGEN,URINE 0.2 (NORMAL) E.U./dL (NORMAL)
[2022-02-20 21:01] LABS: CLARITY,URINE CLEAR (CLEAR)
[2022-02-20 21:20] LABS: BACTERIA,URINE None Seen /HPF (None Seen); RBC,URINE 0-5 /HPF (0-5); SQUAMOUS EPITHELIAL CELL,UR RARE Squamous (<= Few); WBC,URINE 0-3 /HPF (0-3)
--- NOTE | 2022-02-20 21:20 | XRAY Report ---
PROCEDURE: Chest 2 View X-Ray INDICATIONS: chest pain, malaise TECHNIQUE: 2 view(s) of the chest. COMPARISON: None. FINDINGS: Surgical changes and devices: None. Lungs and pleura: No pleural effusions or pneumothorax. Lungs are clear however the lung volumes ar e relatively large and this may reflect presence of COPD.. Mediastinum: Mediastinal contours are normal. Heart size is normal. Bones and chest wall: No suspicious bony abnormalities. Soft tissues appear unremarkable. IMPRESSION: No pneumonia or neoplasm found. Source of current symptoms is not seen. Reviewed by: José Miguel Ram MD on 02/20/2022 9:19 PM PDT Approved by: José Miguel Ram MD on 02/20/2022 9:19 PM PDT Station ID: [id number]
[2022-02-20] MEDS ORDERED: KETOROLAC 15 MG/ML VIAL IVP STA (21:55)
[2022-02-20 22:11] VITALS: BP 128/75
== END 2022-02-20 22:11 | disposition home or self-care (01) ==
LOC: EDUNIT# → ED 19:07
DX: E11.65 Type 2 diabetes mellitus with hyperglycemia (principal); Z79.4 Long term (current) use of insulin; R53.81 Other malaise; R53.83 Other fatigue; R53.1 Weakness; M79.10 Myalgia, unspecified site; M25.50 Pain in unspecified joint; I45.10 Unspecified right bundle-branch block; I10 Essential (primary) hypertension
CPT/HCPCS: 36415; 80053; 81001; 82009; 82803; 83605; 85025; 87040; 87086; 87633; 93005; 96374; 99283

== ENCOUNTER 2022-04-17 10:06 | Outpatient (CLI) | payer MEDICAID ==
[2022-04-17 12:39] LABS: BASOPHILS % (AUTO) 0.6 %; EOSINOPHILS # (AUTO) 0.1 10^3/uL (0.0-0.7); EOSINOPHILS % (AUTO) 1.1 %; HCT - HEMATOCRIT 48.9 % (42.0-52.0); HGB - HEMOGLOBIN 16.8 g/dL (14.0-18.0); LYMPHOCYTES # (AUTO) 1.1 10^3/uL (1.5-3.5); LYMPHOCYTES % (AUTO) 20.2 %; MEAN CORPUSCULAR HEMOGLOBIN 30.4 pg (27.0-31.0); MEAN CORPUSCULAR HGB CONC 34.4 g/dL (32.0-36.0); MEAN CORPUSCULAR VOLUME 88.6 fL (80.0-94.0); MEAN PLATELET VOLUME 9.9 fL (7.4-11.4); MONOCYTES # (AUTO) 0.4 10^3/uL (0.0-1.0); MONOCYTES % (AUTO) 7.1 %; NEUTROPHILS # (AUTO) 3.8 10^3/uL (1.5-6.6); NEUTROPHILS % (AUTO) 70.3 %; PLT - PLATELET COUNT 219 10^3/uL (130-450); RED BLOOD COUNT 5.52 10^6/uL (4.70-6.10); WHITE BLOOD COUNT 5.4 x10^3/uL (4.8-10.8)
[2022-04-17 12:56] LABS: ALBUMIN 4.4 g/dL (3.2-5.5); ALKALINE PHOSPHATASE 147 IU/L (42-121); ALT ALANINE AMINOTRANSFERASE 213 IU/L (10-60); AST ASPARTATE AMINOTRANSFERASE 108 IU/L (10-42); BILIRUBIN,TOTAL 0.4 mg/dL (0.2-1.0); BUN - BLOOD UREA NITROGEN 21 mg/dL (6-20); CALCIUM 9.5 mg/dL (8.5-10.3); CARBON DIOXIDE - CO2 26 mmol/L (21-32); CHLORIDE 101 mmol/L (101-111); CHOL/HDL RATIO 3.9 (<5.0); CHOLESTEROL 172 mg/dL; CREATININE 0.9 mg/dL (0.6-1.2); GFR - MDRD 87 (>89); GLUCOSE 292 mg/dL (70-100); HDL CHOLESTEROL 44 mg/dL; LDL CHOLESTEROL,CALCULATED 111 mg/dL; LDL/HDL RATIO 2.5 (<3.6); POTASSIUM 4.2 mmol/L (3.5-5.0); SODIUM 138 mmol/L (135-145); TOTAL PROTEIN 8.7 g/dL (6.7-8.2); TRIGLYCERIDES 83 mg/dL; VLDL CHOLESTEROL 17 mg/dL
[2022-04-17 13:29] LABS: ESTIMATED AVERAGE GLUCOSE 318 mg/dL (70-100); HEMOGLOBIN A1c% 12.7 % (4.27-6.07)
[2022-04-17 13:49] LABS: CRP - C-REACTIVE PROTEIN < 1.0 mg/dL (0-1.0)
[2022-04-17 14:17] LABS: RHEUMATOID FACTOR POSITIVE (Negative)
[2022-04-18 17:08] LABS: ANTI-DNA (DS) AB QN <1 IU/mL (0-9); CENTROMERE B ANTIBODIES <0.2 AI (0.0-0.9); CHROMATIN ANTIBODIES <0.2 AI (0.0-0.9); JO-1 AB <0.2 AI (0.0-0.9); RIBOSOMAL P ANTIBODIES <0.2 AI (0.0-0.9); RNP ANTIBODIES 1.1 AI (0.0-0.9); SCLERODERMA-70 ANTIBODIES <0.2 AI (0.0-0.9); SJOGREN'S ANTI-SS-A <0.2 AI (0.0-0.9); SJOGREN'S ANTI-SS-B <0.2 AI (0.0-0.9); SMITH ANTIBODIES <0.2 AI (0.0-0.9); SMITH/RNP ANTIBODIES <0.2 AI (0.0-0.9)
== END 2022-04-17 10:07 | disposition home or self-care (01) ==
LOC: LAB.N 10:06
PROVIDERS: ATTEND Physician Assistant Medical
DX: E11.8 Type 2 diabetes mellitus with unspecified complications (principal); D64.9 Anemia, unspecified; R53.1 Weakness
CPT/HCPCS: 36415; 80053; 80061; 82607; 82728; 83036; 83721; 85025; 85651; 86140; 86225; 86235; 86430

== ENCOUNTER 2022-08-11 01:02 | Outpatient (CLI) | payer MEDICAID | END 2022-08-11 01:03 | disposition critical access hospital (66) | LOC: EMS 01:02 | DX: R10.84 Generalized abdominal pain (principal); R11.2 Nausea with vomiting, unspecified; R19.7 Diarrhea, unspecified | CPT/HCPCS: A0425; A0427; A0999 ==

== ENCOUNTER 2022-08-11 01:29 | Emergency (ER) | payer MEDICAID ==
[2022-08-11] MEDS ORDERED: SODIUM CHLORIDE 0.9% 1,000 ML IV STA (01:44)
[2022-08-11] MEDS ORDERED: HYDROmorphone 1 MG/ML CARPUJECT IVP STA (01:44)
[2022-08-11] MEDS ORDERED: ONDANSETRON 4 MG/2 ML VIAL IVP STA (01:44)
--- NOTE | 2022-08-11 01:49 | ED Physician Documentation ---
PD HPI ABD PAIN - Stated complaint Stated Complaint: ABD PX - Chief complaint Chief Complaint: Abd Pain - History obtained from History obtained from: Patient, EMS - History of Present Illness Timing - onset: How many hours ago (2), Today Timing - duration: Hours (2) Timing - details: Abrupt onset, Still present Quality: Sharp, Pain Location: All over / everywhere Improved by: Laying still Worsened by: Moving, Position, Palpation Associated symptoms: Nausea, Vomiting, Hematemesis Similar symptoms before: Has not had sx before Recently seen: Not recently seen - Additional information Additional information: 57-year-old Rasheed Shin is a noncompliant diabetic who is on insulin and has had issue with methamphetamine abuse. Today he is presenting to the emergency department with sudden onset of severe abdominal pain and vomiting. He feels that he has to have a bowel movement and is unable. He denies any current illness and he is a poor historian Review of Systems Unable to obtain: AMS PD PAST MEDICAL HISTORY - Past Medical History Cardiovascular: Hypertension Respiratory: None Neuro: None Endocrine/Autoimmune: Type 2 diabetes GI: GI bleed, Ulcers, Hepatitis : None HEENT: None Psych: Depression, Anxiety, Panic attacks, Post traumatic stress disorder Musculoskeletal: None Derm: None - Past Surgical History Past Surgical History: No - Present Medications Home Medications: Ambulatory Orders Medication Instructions Recorded Confirmed PARoxetine [Paxil] 40 mg PO DAILY tablet 11/25/16 02/20/22 Pantoprazole [Protonix] 40 mg PO BID #60 tablet 11/25/16 02/20/22 Sucralfate [Carafate] 1 gm PO QID #120 tablet 11/25/16 02/20/22 SUMAtriptan [Imitrex] 25 mg PO BID PRN #10 tablet 05/09/18 02/20/22 Buspirone HCl 30 mg PO BID #60 tablet 05/04/19 02/20/22 Citalopram Hydrobromide 20 mg PO DAILY #10 tablet 07/10/19 02/20/22 [Citalopram HBr] QUEtiapine [SEROquel] 100 mg PO QPM #10 tablet 07/10/19 02/20/22 lisinopriL [Lisinopril] 5 mg PO DAILY #10 tablet 07/10/19 02/20/22 Valacyclovir HCl [Valtrex] 1,000 mg PO TID #30 tablet 02/13/21 02/20/22 Doxycycline Hyclate 100 mg PO BID 7 Days #14 tab 02/26/21 02/20/22 Fluticasone Propionate 15.8 ml NS BID 30 Days #1 spray 02/26/21 02/20/22 HYDROcod/ACETAM 5/325 [[place] 5/325] 1 ea PO Q6H PRN #14 tablet 02/26/21 02/20/22 Insulin Glargine [Lantus Solostar] 02/20/22 - Allergies Allergies/Adverse Reactions: Allergies Allergy/AdvReac Type Severity Reaction Status Date / Time codeine AdvReac Emesis Verified 08/11/22 01:40 - Social History Does the pt smoke?: No Smoking Status: Never smoker Does the pt drink ETOH?: No Does the pt have substance abuse?: No - Immunizations Immunizations are current?: Yes - POLST Patient has POLST: No PD ED PE NORMAL - Vitals Vital signs reviewed: Yes (normal ) - General General: Well developed/nourished, Other (57-year-old male eyes closed moaning in pain with dark brown fluid around his lips. He has mumbling speech and some delay in execution of motor commands as well as speech latency) - HEENT HEENT: Atraumatic, PERRL, EOMI - Neck Neck: Supple, no meningeal sign, No bony TTP - Cardiac Cardiac: RRR, No murmur - Respiratory Respiratory: No respiratory distress, Clear bilaterally - Abdomen Abdomen: Other (The abdomen is firm and guarded. 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, No motor deficit, No sensory deficit Eye Opening: To Voice Motor: Obeys Commands Verbal: Oriented GCS Score: 14 - Psych Psych: Other (Mood is withdrawn the affect is painful) Results - Vitals Vitals: Vital Signs - 24 hr 08/11/22 08/11/22 08/11/22 01:30 01:55 02:30 Temperature 36.2 C L Heart Rate 82 90 82 Respiratory 22 19 22 Rate Blood Pressure 125/80 125/80 130/83 H O2 Saturation 100 96 96 08/11/22 08/11/22 08/11/22 03:00 03:40 03:58 Temperature Heart Rate 92 86 85 Respiratory 24 21 19 Rate Blood Pressure 130/84 H 130/84 H O2 Saturation 98 98 98 08/11/22 08/11/22 08/11/22 05:33 06:29 06:43 Temperature 36.8 C Heart Rate 88 91 89 Respiratory 16 16 18 Rate Blood Pressure 141/87 H 143/93 H 135/95 H O2 Saturation 97 96 97 08/11/22 08/11/22 08/11/22 07:00 07:30 08:00 Temperature Heart Rate 94 90 89 Respiratory 19 18 22 Rate Blood Pressure 122/104 H 121/81 H O2 Saturation 98 98 98 Oxygen O2 Source Room air - Labs Labs: Laboratory Tests 08/11/22 08/11/22 08/11/22 01:44 01:44 01:44 WBC 8.1 RBC 4.99 Hgb 15.1 Hct 45.4 MCV 91.0 MCH 30.3 MCHC 33.3 RDW 12.8 Plt Count 182 MPV 9.1 Neut # (Auto) 6.3 Lymph # (Auto) 1.0 L [place] # (Auto) 0.6 Eos # (Auto) 0.1 Baso # (Auto) 0.1 Absolute Nucleated RBC 0.00 Nucleated RBC % 0.0 PT 12.2 INR 1.1 Sodium 137 Potassium 3.8 Chloride 101 Carbon Dioxide 27 Anion Gap 9.0 BUN 24 H Creatinine 1.0 Estimated GFR (MDRD) 77 L Glucose 328 H Calcium 9.1 Total Bilirubin 0.5 AST 123 H ALT 211 H Alkaline Phosphatase 134 H Total Protein 7.7 Albumin 3.2 Globulin 4.5 H Albumin/Globulin Ratio 0.7 L Lipase 33 Urine Color Urine Clarity Urine pH Ur Specific [place] Urine Protein Urine Glucose (UA) Urine Ketones Urine Occult Blood Urine Nitrite Urine Bilirubin Urine Urobilinogen Ur Leukocyte Esterase Ur Microscopic Review Urine Culture Comments Nasal Adenovirus (PCR) Nasal B. parapertussis DNA (PCR) Nasal Coronavir 229E PCR Nasal Coronavir HKU1 PCR Nasal Coronavir NL63 PCR Nasal Coronavir OC43 PCR Nasal Enterovir/Rhinovir PCR Nasal Influenza B PCR Nasal Influenza A PCR Nasal Parainfluen 1 PCR Nasal Parainfluen 2 PCR Nasal Parainfluen 3 PCR Nasal Parainfluen 4 PCR Nasal RSV (PCR) Nasal B.pertussis DNA PCR Nasal C.pneumoniae (PCR) Daniel Human Metapneumo PCR Nasal M.pneumoniae (PCR) Nasal SARS-CoV-2 (PCR) Gastric Fluid pH Gastric Occult Blood Urine Opiates Screen Ur Oxycodone Screen Urine Methadone Screen Ur Propoxyphene Screen Ur Barbiturates Screen Ur Tricyclics Screen Ur Phencyclidine Scrn Ur Amphetamine Screen U Methamphetamines Scrn U Benzodiazepines Scrn Urine Cocaine Screen U Cannabinoids Screen Ethyl Alcohol < 5.0 08/11/22 08/11/22 08/11/22 01:55 02:08 02:55 WBC RBC Hgb Hct MCV MCH MCHC RDW Plt Count MPV Neut # (Auto) Lymph # (Auto) [place] # (Auto) Eos # (Auto) Baso # (Auto) Absolute Nucleated RBC Nucleated RBC % PT INR Sodium Potassium Chloride Carbon Dioxide Anion Gap BUN Creatinine Estimated GFR (MDRD) Glucose Calcium Total Bilirubin AST ALT Alkaline Phosphatase Total Protein Albumin Globulin Albumin/Globulin Ratio Lipase Urine Color YELLOW Urine Clarity CLEAR Urine pH 5.5 Ur Specific [place] 1.025 Urine Protein TRACE Urine Glucose (UA) >=1000 H Urine Ketones NEGATIVE Urine Occult Blood TRACE-INTA Urine Nitrite NEGATIVE Urine Bilirubin NEGATIVE Urine Urobilinogen 1 (NORMAL) Ur Leukocyte Esterase NEGATIVE Ur Microscopic Review NOT INDICATED Urine Culture Comments NOT INDICATED Nasal Adenovirus (PCR) NOT DETECTED Nasal B. parapertussis DNA (PCR) NOT DETECTED Nasal Coronavir 229E PCR NOT DETECTED Nasal Coronavir HKU1 PCR NOT DETECTED Nasal Coronavir NL63 PCR NOT DETECTED Nasal Coronavir OC43 PCR NOT DETECTED Nasal Enterovir/Rhinovir PCR NOT DETECTED Nasal Influenza B PCR NOT DETECTED Nasal Influenza A PCR NOT DETECTED Nasal Parainfluen 1 PCR NOT DETECTED Nasal Parainfluen 2 PCR NOT DETECTED Nasal Parainfluen 3 PCR NOT DETECTED Nasal Parainfluen 4 PCR NOT DETECTED Nasal RSV (PCR) NOT DETECTED Nasal B.pertussis DNA PCR NOT DETECTED Nasal C.pneumoniae (PCR) NOT DETECTED Daniel Human Metapneumo PCR NOT DETECTED Nasal M.pneumoniae (PCR) NOT DETECTED Nasal SARS-CoV-2 (PCR) NOT DETECTED Gastric Fluid pH 5.0 Gastric Occult Blood Negative Urine Opiates Screen NEGATIVE Ur Oxycodone Screen NEGATIVE Urine Methadone Screen NEGATIVE Ur Propoxyphene Screen NEGATIVE Ur Barbiturates Screen NEGATIVE Ur Tricyclics Screen NEGATIVE Ur Phencyclidine Scrn NEGATIVE Ur Amphetamine Screen POSITIVE H U Methamphetamines Scrn POSITIVE H U Benzodiazepines Scrn NEGATIVE Urine Cocaine Screen NEGATIVE U Cannabinoids Screen POSITIVE H Ethyl Alcohol - Rads (name of study) Plain film chest Relevant Findings:: Prelim report reviewed (Impression: No free intraperitoneal air in the upper abdomen. New small indeterminate nodular density in the lateral right upper lung zone. Mild bibasilar subsegmental atelectasis.), EMP independent interpretation of test CT abdomen pelvis without Relevant Findings:: Prelim report reviewed (Impression: No free intraperitoneal air. Constipation. Possible gastroparesis. Chronic pancreatitis. Minor sliding hiatal hernia.), EMP independent interpretation of test (I would add in addition to this an enlarged bladder consistent with urinary retention) PD Medical Decision Making - ED course Complexity details: reviewed old records, reviewed results, re-evaluated patient, considered differential, d/w patient, d/w senior solutions consultant (Irina) Reviewed Lab Results: We revealed a complete blood count coagulation chemistries urine nasal PCR gastric occult blood and toxicology. The toxicology was positive for amphetamine and methamphetamine as well as cannabis alcohol was negative the chemistries were remarkable for an elevated glucose of 200 328 and elevation in the AST ALT and alkaline phosphatase. In the 100s. The remainder of the blood work and the nasal smear was unremarkable the urine glucose was elevated. Social Determinants of Health: This patient is brought to the hospital from his car he denies being homeless he does have a history of methamphetamine abuse and currently has a tox screen with methamphetamine. ED course: 59-year-old Rasheed Shin presented to the emergency department by ambulance from his car and appeared to be in extreme pain. He was hypotensive in the field and administered IV saline en-route with improvement. On my initial examination the patient appeared to have a rigid abdomen and a brown liquid on his lips. The patient was moaning in pain not even able to make eye contact and mumbling with his history. On examination I felt his abdomen was rigid and ordered a stat upright chest x-ray. My initial interpretation of this was concerning for the potential of GI bleeding and free air and I urgently called our on-call surgeon and ordered a CT abdomen and pelvis. The gaxtrocult was negative and the H&H normal. The surgeon immediately came to the emergency department to evaluate the patient and found that he had normal white blood cell count not a convincing picture of free air on his x-ray and the CT scan did not demonstrate any evidence of free air. The remarkable feature on the CT scan was the degree of constipation and the urinary retention. We were able to place a Padilla catheter into the patient drained more than 1500 cc out of his bladder he had improvement in his pain was able to have a bowel movement. He had a large BM. His level of urinary retention will require the catheter for about a week. The patient indicates that he has an apartment in [place] and someone will be able to come and get him. He has issue with the catheter and pain associated with it. Departure - Departure Disposition: 01 Home, Self Care Clinical Impression: Hyperglycemia without ketosis, Urinary retention Constipation Qualifiers: Constipation type: unspecified constipation type Qualified Code(s): K59.00 - Constipation, unspecified Condition: Stable Instructions: ED Constipation, ED Catheter Care Padilla, ED Retention Urinary Male Follow-Up: Staci Rodriguez PA [Provider Admit Priv/Credential] - Comments: Rasheed today it looks like your constipation has caused you some urinary retention and when the bladder retains as much urine as you had, which was about 1500 mL it will need to be deflated or kept empty for up to a week for it to begin to work normally again. If we remove the catheter too early you may have retention or your bladder may not empty well. A follow up visit with your primary care doctor by the end of the week for a voiding trial ( taking the catheter out and making sure you are able to urinate) is indicated. For the constipation I recommend Miralax a regular dose for at least 2 weeks to retrain your colon.
[2022-08-11 01:53] LABS: BASOPHILS # (AUTO) 0.1 10^3/uL (0.0-0.1); BASOPHILS % (AUTO) 0.6 %; EOSINOPHILS # (AUTO) 0.1 10^3/uL (0.0-0.7); EOSINOPHILS % (AUTO) 1.6 %; HCT - HEMATOCRIT 45.4 % (42.0-52.0); HGB - HEMOGLOBIN 15.1 g/dL (14.0-18.0); LYMPHOCYTES % (AUTO) 11.7 %; MEAN CORPUSCULAR HEMOGLOBIN 30.3 pg (27.0-31.0); MEAN CORPUSCULAR HGB CONC 33.3 g/dL (32.0-36.0); MEAN PLATELET VOLUME 9.1 fL (7.4-11.4); MONOCYTES # (AUTO) 0.6 10^3/uL (0.0-1.0); MONOCYTES % (AUTO) 7.5 %; NEUTROPHILS # (AUTO) 6.3 10^3/uL (1.5-6.6); NEUTROPHILS % (AUTO) 77.9 %; PLT - PLATELET COUNT 182 10^3/uL (130-450); RED BLOOD COUNT 4.99 10^6/uL (4.70-6.10); RED CELL DISTRIBUTION WIDTH 12.8 % (12.0-15.0); WHITE BLOOD COUNT 8.1 x10^3/uL (4.8-10.8)
[2022-08-11 02:02] LABS: INR 1.1 (0.8-1.2); PT - PROTHROMBIN TIME 12.2 secs (9.9-12.6)
[2022-08-11 02:06] LABS: ALBUMIN 3.2 g/dL (3.2-5.5); ALBUMIN/GLOBULIN RATIO 0.7 (1.0-2.2); ALKALINE PHOSPHATASE 134 IU/L (42-121); ALT ALANINE AMINOTRANSFERASE 211 IU/L (10-60); AST ASPARTATE AMINOTRANSFERASE 123 IU/L (10-42); BILIRUBIN,TOTAL 0.5 mg/dL (0.2-1.0); BUN - BLOOD UREA NITROGEN 24 mg/dL (6-20); CALCIUM 9.1 mg/dL (8.5-10.3); CARBON DIOXIDE - CO2 27 mmol/L (21-32); CHLORIDE 101 mmol/L (101-111); ETOH - ETHANOL < 5.0 mg/dL; GFR - MDRD 77 (>89); GLUCOSE 328 mg/dL (70-100); LIPASE 33 U/L (22-51); POTASSIUM 3.8 mmol/L (3.5-5.0); SODIUM 137 mmol/L (135-145); TOTAL PROTEIN 7.7 g/dL (6.7-8.2)
[2022-08-11 02:12] LABS: GASTROCCULT Negative (Negative)
[2022-08-11 02:52] LABS: B. PARAPERTUSSIS- RESP PCR PAN NOT DETECTED; B. PERTUSSIS- RESP PCR PANEL NOT DETECTED; C. PNEUMONIAE- RESP PCR PANEL NOT DETECTED; CORONAVIRUS 229E-RESP PCR NOT DETECTED; CORONAVIRUS HKU1-RESP PCR NOT DETECTED; CORONAVIRUS NL63-RESP PCR NOT DETECTED; CORONAVIRUS OC43-RESP PCR NOT DETECTED; HUMAN METAPNEUMOVIRUS NOT DETECTED; INFLUENZA A- RESP PCR PANEL NOT DETECTED; INFLUENZA B - RESP PCR PANEL NOT DETECTED; M. PNEUMONIAE- RESP PCR PANEL NOT DETECTED; PARAINFLUENZA VIRUS 1 NOT DETECTED; PARAINFLUENZA VIRUS 2 NOT DETECTED; PARAINFLUENZA VIRUS 3 NOT DETECTED; PARAINFLUENZA VIRUS 4 NOT DETECTED; RHINOVIRUS/ENTEROVIRUS NOT DETECTED; RSV- RESP PCR PANEL NOT DETECTED; SARS-CoV-2 -RESP PCR PANEL NOT DETECTED
[2022-08-11 03:05] LABS: BILIRUBIN,URINE NEGATIVE (NEGATIVE); GLUCOSE, URINE (UA) >=1000 mg/dL (NEGATIVE); KETONES,URINE (UA) NEGATIVE (NEGATIVE); LEUKOCYTE ESTERASE, URINE NEGATIVE (NEGATIVE); NITRITE,URINE NEGATIVE (NEGATIVE); OCCULT BLOOD,URINE TRACE-INTA (NEGATIVE); PH,URINE 5.5 PH (5.0-7.5); PROTEIN,URINE TRACE mg/dL (NEGATIVE); UROBILINOGEN,URINE 1 (NORMAL) E.U./dL (NORMAL)
[2022-08-11 03:06] LABS: CLARITY,URINE CLEAR (CLEAR)
[2022-08-11 03:15] LABS: AMPHETAMINE SCREEN,URINE POSITIVE (NEGATIVE); COCAINE SCREEN URINE NEGATIVE (NEGATIVE); METHAMPHETAMINES SCREEN, URINE POSITIVE (NEGATIVE); OPIATE SCREEN, URINE NEGATIVE (NEGATIVE); THC CANNABINOID SCREEN, URINE POSITIVE (NEGATIVE)
[2022-08-11 03:16] LABS: BARBITURATE SCREEN,UR NEGATIVE (NEGATIVE); BENZODIAZEPINES SCREEN, URINE NEGATIVE (NEGATIVE); METHADONE SCREEN, URINE NEGATIVE (NEGATIVE); OXYCODONE SCREEN, URINE NEGATIVE (NEGATIVE); PROPOXYPHENE SCREEN, URINE NEGATIVE (NEGATIVE); TRICYCLIC ANTIDEPRESSANT,URINE NEGATIVE (NEGATIVE)
[2022-08-11] MEDS ORDERED: LIDOCAINE VISCOUS 2% 15 ML UDC MM STA (03:40)
[2022-08-11] MEDS ORDERED: PANTOPRAZOLE 40 MG VIAL IVP STA (03:40)
[2022-08-11] MEDS ORDERED: MAG HYDROX/AL HYDROX/SIMETH 30 ML UDC PO STA (03:40)
[2022-08-11] MEDS ORDERED: SUCRALFATE 1 GM/10 ML UDC PO STA (03:40)
--- NOTE | 2022-08-11 08:39 | XRAY Report ---
PROCEDURE: Chest 1 View X-Ray INDICATIONS: chest pain TECHNIQUE: One view of the chest was acquired. COMPARISON: 02/20/2022 plain films FINDINGS: Surgical changes and devices: None. Lungs and pleura: No pleural effusions or pneumothorax. Mild bibasilar opacity consistent with atele ctasis. Mediastinum: Mediastinal contours appear normal. Heart size is normal. Bones and chest wall: No suspicious bony lesions. Overlying soft tissues appear unremarkable. IMPRESSION: No acute process. Concordant with preliminary interpretation. Reviewed by: Jasbir Hogan MD on 08/11/2022 8:37 AM PDT Approved by: Jasbir Hogan MD on 08/11/2022 8:37 AM PDT Station ID: [id number]
--- NOTE | 2022-08-11 09:19 | CT Report ---
PROCEDURE: ABDOMEN/PELVIS WO INDICATIONS: suspect ruptured viscous TECHNIQUE: Noncontrast 5 mm thick sections acquired from the diaphragms to the symphysis. 5 mm coronal and sagi ttal reformats were then performed. For radiation dose reduction, the following was used: automated exposure control, adjustment of mA and/or kV according to patient size. COMPARISON: CT dated 05/08/2018 FINDINGS: Image quality: Excellent. ABDOMEN: Lung bases: Lung bases are clear. Heart size is normal. Solid organs: Liver and spleen are normal in size. Gallbladder is within normal limits Pancreas is normal in contours. A few scattered calcifications within the pancreas. No adrenal nodules. Kidney s are normal in size, without hydronephrosis or nephrolithiasis. Peritoneum and bowel: Small hiatal hernia. Mild thickening of distal esophagus. Moderate gastric dis tention with large amount of gastric debris. Mild diffuse colonic distention. Moderate to large amoun t of colonic stool. Unenhanced bowel loops demonstrate otherwise normal wall thickness and caliber. Normal appendix. No free fluid or air. Nodes and vessels: Mildly prominent retroperitoneal lymph nodes, largest of which is in the left para -aortic location measuring 14 mm short axis. 13 mm short axis left upper quadrant perigastric lymph n ode. Aorta and inferior vena cava are normal in caliber. Miscellaneous: No ventral hernias. PELVIS: Genitourinary: Bladder wall thickness is normal. Miscellaneous: No inguinal hernias or adenopathy. Bones: No suspicious bony lesions. No vertebral body compression fractures. IMPRESSION: 1. No evidence of acute process. 2. Gastric distention and debris which could indicate a bezoar and/or gastroparesis. 3. Mildly prominent retroperitoneal and mesenteric adenopathy; follow-up CT with intravenous contrast in 3 months is recommended to ensure stability/resolution, and to exclude underlying neoplasm. 4. Moderate to large amount of diffuse colonic stool. 5. Normal appendix. 6. Distal esophageal thickening; initial further assessment with endoscopy is recommended to exclude underlying neoplasm. Reviewed by: Jasbir Hogan MD on 08/11/2022 9:18 AM PDT Approved by: Jasbir Hogan MD on 08/11/2022 9:18 AM PDT Station ID: [id number]
[2022-08-11] MEDS ORDERED: ONDANSETRON ODT 4 MG TABLET TL STA (10:16)
[2022-08-11] MEDS ORDERED: DOCUSATE SODIUM 250 MG CAPSULE PO STA (10:16)
[2022-08-11 10:37] VITALS: BP 127/109
== END 2022-08-11 10:49 | disposition home or self-care (01) ==
LOC: EDUNIT# → ED 01:29
DX: Z20.822 Contact with and (suspected) exposure to COVID-19 (principal); R33.9 Retention of urine, unspecified; E11.649 Type 2 diabetes mellitus with hypoglycemia without coma; Z79.4 Long term (current) use of insulin; I10 Essential (primary) hypertension; K59.00 Constipation, unspecified
CPT/HCPCS: 36415; 51702; 71045; 74176; 80053; 80306; 80320; 81003; 83690; 85025; 85610; 87633; 96374; 96375; 99284; A9270; J1170; Q0162; 81001; 87086

== ENCOUNTER 2022-10-09 21:14 | Outpatient (CLI) | payer MEDICAID | END 2022-10-09 21:15 | disposition critical access hospital (66) | LOC: EMS 21:14 | DX: E11.65 Type 2 diabetes mellitus with hyperglycemia (principal); R68.2 Dry mouth, unspecified; R47.89 Other speech disturbances; Z79.4 Long term (current) use of insulin | CPT/HCPCS: A0425; A0429; A0999 ==

== ENCOUNTER 2022-10-09 21:34 | Emergency (ER) | payer MEDICAID ==
[2022-10-09] MEDS ORDERED: SODIUM CHLORIDE 0.9% 1,000 ML IV STA (21:45)
[2022-10-09] MEDS ORDERED: INSULIN REGULAR HUMAN 300 UNIT/3 ML VIAL IVP STA (21:45)
--- NOTE | 2022-10-09 21:46 | ED Physician Documentation ---
History of Present Illness - Stated complaint Stated Complaint: HIGH BLOOD SUGAR - History obtained from History obtained from: Patient - Additonal information Additional information: 57-year-old gentleman who is a poorly controlled diabetic was pulled over tonight because of erratic driving and found to have blood sugar over 400. He had a breathalyzer on scene that was negative. He feels kind of out of it and admits not having taken insulin since this morning. He denies any pain. No fevers. PD PAST MEDICAL HISTORY - Past Medical History Cardiovascular: Hypertension Respiratory: None Neuro: None Endocrine/Autoimmune: Type 2 diabetes GI: GI bleed, Ulcers, Hepatitis : None HEENT: None Psych: Depression, Anxiety, Panic attacks, Post traumatic stress disorder Musculoskeletal: None Derm: None - Past Surgical History Past Surgical History: No - Present Medications Home Medications: Ambulatory Orders Medication Instructions Recorded Confirmed PARoxetine [Paxil] 40 mg PO DAILY tablet 11/25/16 02/20/22 Pantoprazole [Protonix] 40 mg PO BID #60 tablet 11/25/16 02/20/22 Sucralfate [Carafate] 1 gm PO QID #120 tablet 11/25/16 02/20/22 SUMAtriptan [Imitrex] 25 mg PO BID PRN #10 tablet 05/09/18 02/20/22 Buspirone HCl 30 mg PO BID #60 tablet 05/04/19 02/20/22 Citalopram Hydrobromide 20 mg PO DAILY #10 tablet 07/10/19 02/20/22 [Citalopram HBr] QUEtiapine [SEROquel] 100 mg PO QPM #10 tablet 07/10/19 02/20/22 lisinopriL [Lisinopril] 5 mg PO DAILY #10 tablet 07/10/19 02/20/22 Valacyclovir HCl [Valtrex] 1,000 mg PO TID #30 tablet 02/13/21 02/20/22 Doxycycline Hyclate 100 mg PO BID 7 Days #14 tab 02/26/21 02/20/22 Fluticasone Propionate 15.8 ml NS BID 30 Days #1 spray 02/26/21 02/20/22 HYDROcod/ACETAM 5/325 [[place] 5/325] 1 ea PO Q6H PRN #14 tablet 02/26/21 02/20/22 Insulin Glargine [Lantus Solostar] 02/20/22 - Allergies Allergies/Adverse Reactions: Allergies Allergy/AdvReac Type Severity Reaction Status Date / Time codeine AdvReac Emesis Verified 10/09/22 21:47 - Social History Does the pt smoke?: No Smoking Status: Never smoker Does the pt drink ETOH?: No Does the pt have substance abuse?: No - Immunizations Immunizations are current?: Yes - POLST Patient has POLST: No PD ED PE NORMAL - Vitals Vital signs reviewed: Yes - General General: Alert and oriented X 3, Other (Somewhat disheveled with very dry mucous membranes) - HEENT HEENT: PERRL, EOMI - Neck Neck: Supple, no meningeal sign, No bony TTP - Respiratory Respiratory: No respiratory distress, Clear bilaterally - Abdomen Abdomen: Non tender - Neuro Neuro: Alert and oriented X 3, Normal speech Results - Vitals Vitals: Vital Signs - 24 hr 10/09/22 21:43 Temperature 37.2 C Heart Rate 102 H Respiratory 13 Rate Blood Pressure 148/97 H O2 Saturation 97 Oxygen O2 Source Room air - Labs Labs: Laboratory Tests 10/09/22 10/09/22 10/09/22 21:52 21:52 21:52 WBC 4.3 L RBC 4.77 Hgb 14.1 Hct 42.3 MCV 88.7 MCH 29.6 MCHC 33.3 RDW 12.3 Plt Count 179 MPV 9.5 Neut # (Auto) 2.8 Lymph # (Auto) 1.0 L [place] # (Auto) 0.3 Eos # (Auto) 0.1 Baso # (Auto) 0.0 Absolute Nucleated RBC 0.00 Nucleated RBC % 0.0 VBG pH 7.380 VBG pCO2 39.7 L VBG pO2 43.1 VBG HCO3 23.0 VBG Total CO2 24.2 VBG O2 Saturation 79.5 VBG Base Excess -1.9 Sodium 134 L Potassium 3.8 Chloride 100 L Carbon Dioxide 25 Anion Gap 9.0 BUN 20 Creatinine 0.7 Estimated GFR (MDRD) 116 Glucose 521 H* POC Whole Bld Glucose Calcium 8.1 L Phosphorus 3.9 Magnesium 1.9 Urine Color Urine Clarity Urine pH Ur Specific [place] Urine Protein Urine Glucose (UA) Urine Ketones Urine Occult Blood Urine Nitrite Urine Bilirubin Urine Urobilinogen Ur Leukocyte Esterase Ur Microscopic Review Urine Culture Comments Urine Opiates Screen Ur Oxycodone Screen Urine Methadone Screen Ur Propoxyphene Screen Ur Barbiturates Screen Ur Tricyclics Screen Ur Phencyclidine Scrn Ur Amphetamine Screen U Methamphetamines Scrn U Benzodiazepines Scrn Urine Cocaine Screen U Cannabinoids Screen Serum Ketones NEGATIVE 10/09/22 10/09/22 22:27 22:28 WBC RBC Hgb Hct MCV MCH MCHC RDW Plt Count MPV Neut # (Auto) Lymph # (Auto) [place] # (Auto) Eos # (Auto) Baso # (Auto) Absolute Nucleated RBC Nucleated RBC % VBG pH VBG pCO2 VBG pO2 VBG HCO3 VBG Total CO2 VBG O2 Saturation VBG Base Excess Sodium Potassium Chloride Carbon Dioxide Anion Gap BUN Creatinine Estimated GFR (MDRD) Glucose POC Whole Bld Glucose 319 H Calcium Phosphorus Magnesium Urine Color YELLOW Urine Clarity CLEAR Urine pH 5.5 Ur Specific [place] 1.020 Urine Protein TRACE Urine Glucose (UA) >=1000 H Urine Ketones NEGATIVE Urine Occult Blood NEGATIVE Urine Nitrite NEGATIVE Urine Bilirubin NEGATIVE Urine Urobilinogen 0.2 (NORMAL) Ur Leukocyte Esterase NEGATIVE Ur Microscopic Review NOT INDICATED Urine Culture Comments NOT INDICATED Urine Opiates Screen NEGATIVE Ur Oxycodone Screen NEGATIVE Urine Methadone Screen NEGATIVE Ur Propoxyphene Screen NEGATIVE Ur Barbiturates Screen NEGATIVE Ur Tricyclics Screen NEGATIVE Ur Phencyclidine Scrn NEGATIVE Ur Amphetamine Screen POSITIVE H U Methamphetamines Scrn POSITIVE H U Benzodiazepines Scrn NEGATIVE Urine Cocaine Screen NEGATIVE U Cannabinoids Screen NEGATIVE Serum Ketones PD Medical Decision Making - ED course ED course: 57-year-old gentleman presents with uncontrolled blood sugars due to an insulin noncompliance today. CBC, venous gas, BMP are normal with the exception of hyperglycemia. There is no evidence of DKA. After administration of 10 units of IV insulin and 1 L of normal saline and oral fluids his blood sugar was down to 319. He was feeling better. He is noted to be methamphetamine positive. 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 Make sure to take your long- acting insulin when you get home. We brought your blood sugar down from over 500 down to 319 with IV fluids and insulin here. We did note you have methamphetamine in your urine, if you are using drugs please stop. Call your doctor to arrange a follow-up appointment, make the next available appointment. In the interim, return anytime if worse or if new symptoms develop.
[2022-10-09 21:49] VITALS: BP 148/97
[2022-10-09 21:59] LABS: BASOPHILS % (AUTO) 0.9 %; EOSINOPHILS # (AUTO) 0.1 10^3/uL (0.0-0.7); EOSINOPHILS % (AUTO) 2.1 %; HCT - HEMATOCRIT 42.3 % (42.0-52.0); HGB - HEMOGLOBIN 14.1 g/dL (14.0-18.0); LYMPHOCYTES % (AUTO) 23.1 %; MEAN CORPUSCULAR HEMOGLOBIN 29.6 pg (27.0-31.0); MEAN CORPUSCULAR HGB CONC 33.3 g/dL (32.0-36.0); MEAN CORPUSCULAR VOLUME 88.7 fL (80.0-94.0); MEAN PLATELET VOLUME 9.5 fL (7.4-11.4); MONOCYTES # (AUTO) 0.3 10^3/uL (0.0-1.0); MONOCYTES % (AUTO) 7.7 %; NEUTROPHILS # (AUTO) 2.8 10^3/uL (1.5-6.6); PLT - PLATELET COUNT 179 10^3/uL (130-450); RED BLOOD COUNT 4.77 10^6/uL (4.70-6.10); RED CELL DISTRIBUTION WIDTH 12.3 % (12.0-15.0); WHITE BLOOD COUNT 4.3 x10^3/uL (4.8-10.8)
[2022-10-09 22:01] LABS: VBG BASE EXCESS -1.9 mmol/L (-2 - +2); VBG OXYGEN SATURATION 79.5 % (60-80); VBG PCO2 39.7 mmHg (41-51); VBG PH 7.38 (7.31-7.41); VBG PO2 43.1 mmHg (25-47); VBG TOTAL CO2 24.2 mmol/L (24-29)
[2022-10-09 22:09] LABS: KETONES, SERUM (ACETEST) NEGATIVE (NEGATIVE)
[2022-10-09 22:13] LABS: BUN - BLOOD UREA NITROGEN 20 mg/dL (6-20); CALCIUM 8.1 mg/dL (8.5-10.3); CARBON DIOXIDE - CO2 25 mmol/L (21-32); CHLORIDE 100 mmol/L (101-111); CREATININE 0.7 mg/dL (0.6-1.2); GFR - MDRD 116 (>89); MAGNESIUM 1.9 mg/dL (1.7-2.8); PHOSPHORUS 3.9 mg/dL (2.5-4.6); POTASSIUM 3.8 mmol/L (3.5-5.0); SODIUM 134 mmol/L (135-145)
[2022-10-09 22:15] LABS: GLUCOSE 521 mg/dL (70-100)
[2022-10-09 22:31] LABS: MUDS CUTOFF CONCENTRATIONS CUTOFF CONC BELOW:
[2022-10-09 22:34] LABS: BILIRUBIN,URINE NEGATIVE (NEGATIVE); GLUCOSE, URINE (UA) >=1000 mg/dL (NEGATIVE); KETONES,URINE (UA) NEGATIVE (NEGATIVE); LEUKOCYTE ESTERASE, URINE NEGATIVE (NEGATIVE); NITRITE,URINE NEGATIVE (NEGATIVE); OCCULT BLOOD,URINE NEGATIVE (NEGATIVE); PH,URINE 5.5 PH (5.0-7.5); PROTEIN,URINE TRACE mg/dL (NEGATIVE); UROBILINOGEN,URINE 0.2 (NORMAL) E.U./dL (NORMAL)
[2022-10-09 22:36] LABS: CLARITY,URINE CLEAR (CLEAR)
[2022-10-09 22:45] LABS: AMPHETAMINE SCREEN,URINE POSITIVE (NEGATIVE); BARBITURATE SCREEN,UR NEGATIVE (NEGATIVE); BENZODIAZEPINES SCREEN, URINE NEGATIVE (NEGATIVE); COCAINE SCREEN URINE NEGATIVE (NEGATIVE); METHADONE SCREEN, URINE NEGATIVE (NEGATIVE); METHAMPHETAMINES SCREEN, URINE POSITIVE (NEGATIVE); OPIATE SCREEN, URINE NEGATIVE (NEGATIVE); OXYCODONE SCREEN, URINE NEGATIVE (NEGATIVE); PROPOXYPHENE SCREEN, URINE NEGATIVE (NEGATIVE); THC CANNABINOID SCREEN, URINE NEGATIVE (NEGATIVE); TRICYCLIC ANTIDEPRESSANT,URINE NEGATIVE (NEGATIVE)
== END 2022-10-09 23:10 | disposition home or self-care (01) ==
LOC: EDUNIT# → ED 21:34
DX: E11.65 Type 2 diabetes mellitus with hyperglycemia (principal); Z79.4 Long term (current) use of insulin; R78.4 Finding of other drugs of addictive potential in blood
CPT/HCPCS: 36415; 80048; 80306; 81003; 82009; 82803; 83735; 84100; 85025; 96360; 99283; 99284; J1815; 81001; 87086

== ENCOUNTER 2023-05-29 16:21 | Outpatient (CLI) | payer MEDICAID ==
--- NOTE | 2023-06-04 11:21 | XRAY Report ---
PROCEDURE: Knee 3V RT INDICATIONS: RIGHT LEG PAIN TECHNIQUE: 3 views of the knee(s) were acquired. COMPARISON: None. FINDINGS: Bones: No fractures or dislocations. No suspicious bony lesions. Soft tissues: No significant suprapatellar joint effusion. No suspicious soft tissue calcifications or masses. IMPRESSION: No acute bony abnormality. Reviewed by: Lior Albert MD on 05/29/2023 5:13 PM PST Approved by: Lior Albert MD on 05/29/2023 5:13 PM PST Station ID: [id number]
== END 2023-05-29 16:22 | disposition home or self-care (01) ==
LOC: DI 16:21
PROVIDERS: ATTEND Registered Nurse
DX: M79.604 Pain in right leg (principal)

== ENCOUNTER 2023-06-05 15:01 | Outpatient (CLI) | payer MEDICAID | END 2023-06-05 23:59 | disposition critical access hospital (66) | LOC: EMS 15:01 | DX: M79.651 Pain in right thigh (principal); R10.31 Right lower quadrant pain | CPT/HCPCS: A0425; A0429; A0999 ==

== ENCOUNTER 2023-09-06 06:20 | Outpatient (CLI) | payer MEDICAID | END 2023-09-06 23:59 | disposition critical access hospital (66) | LOC: EMS 06:20 | DX: R51.9 Headache, unspecified (principal); R09.81 Nasal congestion | CPT/HCPCS: A0425; A0429; A0999 ==

== ENCOUNTER 2023-09-06 06:36 | Emergency (ER) | payer MEDICAID ==
--- NOTE | 2023-09-06 06:45 | ED Physician Documentation ---
History of Present Illness - Stated complaint Stated Complaint: SINUS INF - Chief complaint Chief Complaint: Heent - History obtained from History obtained from: Patient - Additonal information Additional information: 58yM with pmh dm p/w sinus pressure X 3 days without fever. he does have R>L ear fullness. PD PAST MEDICAL HISTORY - Past Medical History Past Medical History: Yes Cardiovascular: Hypertension Respiratory: None Neuro: None Endocrine/Autoimmune: Type 2 diabetes GI: GI bleed, Ulcers, Hepatitis : None HEENT: None Psych: Depression, Anxiety, Panic attacks, Post traumatic stress disorder Musculoskeletal: None Derm: None - Past Surgical History Past Surgical History: No - Present Medications Home Medications: Ambulatory Orders Medication Instructions Recorded Confirmed PARoxetine [Paxil] 40 mg PO DAILY tablet 11/25/16 09/06/23 Pantoprazole [Protonix] 40 mg PO BID #60 tablet 11/25/16 09/06/23 Buspirone HCl 30 mg PO BID #60 tablet 05/04/19 09/06/23 Citalopram Hydrobromide 20 mg PO DAILY #10 tablet 07/10/19 09/06/23 [Citalopram HBr] QUEtiapine [SEROquel] 100 mg PO QPM #10 tablet 07/10/19 09/06/23 lisinopriL [Lisinopril] 5 mg PO DAILY #10 tablet 07/10/19 09/06/23 Fluticasone Propionate 15.8 ml NS BID 30 Days #1 spray 02/26/21 09/06/23 Insulin Glargine [Lantus Solostar] 02/20/22 - Allergies Allergies/Adverse Reactions: Allergies Allergy/AdvReac Type Severity Reaction Status Date / Time codeine AdvReac Emesis Verified 09/06/23 06:44 - Social History Does the pt smoke?: No Smoking Status: Never smoker Does the pt drink ETOH?: No Does the pt have substance abuse?: No - Immunizations Immunizations are current?: Yes - POLST Patient has POLST: No PD ED PE NORMAL - Vitals Vital signs reviewed: Yes - General General: Alert and oriented X 3, No acute distress, Well developed/nourished - HEENT HEENT: Atraumatic, PERRL, EOMI, Moist mucous membranes, Pharynx benign, Other (BL TMs occluded with cerumen) - Neck Neck: Supple, no meningeal sign - Cardiac Cardiac: RRR - Respiratory Respiratory: No respiratory distress, Clear bilaterally - Derm Derm: Normal color, Warm and dry Results - Vitals Vitals: Vital Signs - 24 hr 09/06/23 06:35 Temperature 36.8 C Heart Rate 101 H Respiratory 16 Rate Blood Pressure 171/108 H O2 Saturation 95 Oxygen O2 Source Room air PD Medical Decision Making - ED course ED course: 58yM p/w BL sinus and nasal pressure, improving s/p afrin spray. also with mild sore throat. advised symptomatic outpatient care. pcp referral list provided and return precautions given. Departure - Departure Disposition: Home, Self Care Clinical Impression: Sinusitis Condition: Stable Instructions: ED Sinusitis No Abx Comments: You were seen in the emergency department for sinus infection. You can use nasal spray (afrin) up to twice daily for relief of pressure. Please follow-up with your primary care provider and return to the emergency department if you have any new or worsening symptoms or other concerns. Forms: PCP List
[2023-09-06] MEDS: LIDOCAINE VISCOUS 2% 15 ML UDC MM STA (06:52)
[2023-09-06] MEDS: OXYMETAZOLINE HCL 100 SPRAYS BOTTLE NAS STA (06:52)
[2023-09-06] MEDS: KETOROLAC 30 MG/ML VIAL IM STA (07:02)
[2023-09-06 07:50] VITALS: BP 182/105; O2SAT 96
== END 2023-09-06 07:44 | disposition home or self-care (01) ==
LOC: EDUNIT# → ED 06:36
DX: J32.9 Chronic sinusitis, unspecified (principal); J02.9 Acute pharyngitis, unspecified; I10 Essential (primary) hypertension; Z79.899 Other long term (current) drug therapy
CPT/HCPCS: 96372; 99283; A9270

== ENCOUNTER 2023-10-02 08:00 | Outpatient (CLI) | payer MEDICAID | END 2023-10-02 23:59 | disposition home or self-care (01) | LOC: LAB.N 08:00 | PROVIDERS: ATTEND Physician Assistant Medical | DX: R31.9 Hematuria, unspecified (principal) | CPT/HCPCS: 87086; 87181 ==

== ENCOUNTER 2023-10-02 18:14 | Outpatient (CLI) | payer MEDICAID | END 2023-10-02 22:25 | disposition critical access hospital (66) | LOC: EMS 18:14 | DX: R31.9 Hematuria, unspecified (principal); E11.65 Type 2 diabetes mellitus with hyperglycemia | CPT/HCPCS: A0425; A0427; A0999 ==

== ENCOUNTER 2023-10-02 18:34 | Emergency (ER) | payer MEDICAID ==
--- NOTE | 2023-10-02 18:59 | ED Physician Documentation ---
PD HPI ABD PAIN - Stated complaint Stated Complaint: - Chief complaint Chief Complaint: Abd Pain - History obtained from History obtained from: Patient, Family, EMS - History of Present Illness Pain level max: 4 Pain level now: 1 Quality: Aching, Pain Improved by: Other (nothing) Worsened by: Other (urination) Associated symptoms: No: Fever, Nausea, Vomiting, Hematemesis, Diarrhea, Constipation, Melena, Hematochezia - Additional information Additional information: Patient is a 50-year-old male, diabetic who presents to the emergency department stating that he has bloody urine today. He states he has been having difficulty and pain with urination for the past week or so. Today he states he has been urinating blood. No fevers. No chills. No neck or back pain. No trauma. He is a diabetic. He states his blood sugars are always "high". He states that he thinks it is around 400 today. No vomiting. No nausea. No diarrhea or constipation. Most of the pain is with urination. Review of Systems Constitutional: denies: Fever, Chills Respiratory: denies: Dyspnea, Cough GI: denies: Vomiting, Diarrhea, Hematemesis, Bloody / black stool Skin: denies: Rash Musculoskeletal: denies: Neck pain, Back pain Neurologic: denies: Headache PD PAST MEDICAL HISTORY - Past Medical History Past Medical History: Yes Cardiovascular: Hypertension Respiratory: None Neuro: None Endocrine/Autoimmune: Type 2 diabetes GI: GI bleed, Ulcers, Hepatitis : None HEENT: None Psych: Depression, Anxiety, Panic attacks, Post traumatic stress disorder Musculoskeletal: None Derm: None - Past Surgical History Past Surgical History: No - Present Medications Home Medications: Ambulatory Orders Medication Instructions Recorded Confirmed PARoxetine [Paxil] 40 mg PO DAILY tablet 11/25/16 09/06/23 Pantoprazole [Protonix] 40 mg PO BID #60 tablet 11/25/16 09/06/23 Buspirone HCl 30 mg PO BID #60 tablet 05/04/19 09/06/23 Citalopram Hydrobromide 20 mg PO DAILY #10 tablet 07/10/19 09/06/23 [Citalopram HBr] QUEtiapine [SEROquel] 100 mg PO QPM #10 tablet 07/10/19 09/06/23 lisinopriL [Lisinopril] 5 mg PO DAILY #10 tablet 07/10/19 09/06/23 Fluticasone Propionate 15.8 ml NS BID 30 Days #1 spray 02/26/21 09/06/23 Insulin Glargine [Lantus Solostar] 02/20/22 Cefpodoxime Proxetil [Vantin] 100 mg PO Q12H #14 tablet 10/02/23 - Allergies Allergies/Adverse Reactions: Allergies Allergy/AdvReac Type Severity Reaction Status Date / Time codeine AdvReac Emesis Verified 10/02/23 19:18 - Social History Does the pt smoke?: No Smoking Status: Never smoker Does the pt drink ETOH?: No Does the pt have substance abuse?: No - Immunizations Immunizations are current?: Yes - POLST Patient has POLST: No PD ED PE NORMAL - Vitals Vital signs reviewed: Yes - General General: Alert and oriented X 3, No acute distress - HEENT HEENT: Moist mucous membranes, Pharynx benign - Neck Neck: Supple, no meningeal sign - Cardiac Cardiac: RRR, Strong equal pulses - Respiratory Respiratory: No respiratory distress, Clear bilaterally - Abdomen Abdomen: Soft, Non tender, Non distended - Back Back: No CVA TTP - Derm Derm: Warm and dry - Neuro Neuro: Alert and oriented X 3 - Psych Psych: Normal mood, Normal affect Results - Vitals Vitals: Vital Signs - 24 hr 10/02/23 10/02/23 18:48 22:00 Temperature 37.1 C Heart Rate 107 H 76 Respiratory 16 18 Rate Blood Pressure 149/90 H 164/100 H O2 Saturation 94 97 Oxygen O2 Source Room air - Labs Labs: Laboratory Tests 10/02/23 10/02/23 10/02/23 19:06 19:06 19:30 WBC 7.2 RBC 4.44 L Hgb 13.1 L Hct 39.4 L MCV 88.7 MCH 29.5 MCHC 33.2 RDW 12.4 Plt Count 155 MPV 9.3 Neut # (Auto) 5.8 Lymph # (Auto) 0.7 L [place] # (Auto) 0.6 Eos # (Auto) 0.0 Baso # (Auto) 0.0 Absolute Nucleated RBC 0.00 Nucleated RBC % 0.0 Sodium 135 Potassium 4.1 Chloride 102 Carbon Dioxide 26 Anion Gap 7.0 BUN 10 Creatinine 0.6 Estimated GFR (MDRD) 138 Glucose 339 H Calcium 8.6 Total Bilirubin 0.6 AST 106 H ALT 179 H Alkaline Phosphatase 112 Total Protein 6.5 Albumin 3.5 Globulin 3.0 Albumin/Globulin Ratio 1.2 Lipase < 10 L Urine Color RED/BLOODY Urine Clarity TURBID Urine pH 7.0 Ur Specific [place] 1.015 Urine Protein >=300 H Urine Glucose (UA) >=1000 H Urine Ketones 15 H Urine Occult Blood LARGE H Urine Nitrite POSITIVE H Urine Bilirubin NEGATIVE Urine Urobilinogen 1 (NORMAL) Ur Leukocyte Esterase TRACE H Urine RBC TNTC H Urine WBC 0-3 Ur Squamous Epith Cells NONE SEEN Urine Bacteria Rare Ur Microscopic Review INDICATED Urine Culture Comments INDICATED - Rads (name of study) CT abdomen pelvis Relevant Findings:: Final report received, See rad report PD Medical Decision Making - ED course Complexity details: reviewed results, re-evaluated patient, considered differential, d/w patient ED course: 58-year-old male with gross hematuria. We will treat for UTI. Given Rocephin IV. Will place on oral antibiotics for home. CT scan does not show any acute abnormalities other than a significantly thickened bladder wall. Recommend follow-up with urology after treatment of the UTI. May benefit from a cystoscopy to rule out malignancy. Patient is well-appearing, nontoxic. Afebrile. Pain well-controlled. Given a dose of morphine IV. Patient was also given IV fluids and encouraged to drink plenty of water at home. Patient counseled regarding signs and symptoms for which I believe and urgent re- evaluation would be necessary. Patient with good understanding of and agreement to plan and is comfortable going home at this time This document was made in part using voice recognition software. While efforts are made to proofread this document, sound alike and grammatical errors may occur. Departure - Departure Disposition: 01 Home, Self Care Clinical Impression: UTI (urinary tract infection) Qualifiers: Urinary tract infection type: acute cystitis Hematuria presence: with hematuria Qualified Code(s): N30.01 - Acute cystitis with hematuria Hematuria Qualifiers: Hematuria type: gross Qualified Code(s): R31.0 - Gross hematuria Condition: Good Instructions: ED UTI Cystitis Male Follow-Up: Staci Rodriguez PA [Primary Care Provider] - Reno Daniels MD [Provider Admit Priv/Credential] - Within 1 week Prescriptions: Cefpodoxime Proxetil [Vantin] 100 mg PO Q12H #14 tablet Comments: Your prescription was sent to [facility] in [place]. Please follow-up with your doctor for further care. It is recommended that you follow-up with urology as well. You may need a cystoscopy performed which is a camera evaluation to exclude any type of cancer in your bladder. Take all antibiotics until gone. Make sure you are drinking plenty of water at home. Return if you worsen PROCEDURE: Abdomen/Pelvis W INDICATIONS: abd pain, hematuria CONTRAST: 100ml [id number] TECHNIQUE: After the administration of intravenous contrast, a CT scan of the abdomen and pelvis was performed. Images were recorded and evaluated at appropriate window settings. Reformats: coronal and sagittal. For radiation dose reduction, the following was used: automated exposure control, adjustment of mA and/or kV according to patient size. COMPARISON: CT abdomen pelvis 08/11/2022. FINDINGS: Image quality: Diagnostic. Lower chest: Unremarkable. Liver: No solid mass. Several small cysts. Gallbladder: No radiopaque stones or wall thickening. Biliary tree: No intrahepatic or extrahepatic dilation, accounting for age. Spleen: No splenomegaly. Small cyst or hemangioma. Pancreas: No pancreatic ductal dilation. Adrenals: No adrenal nodule. 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 No hydronephrosis. No renal cystic lesion which requires follow up. No solid mass. Stomach, bowel and peritoneum: No bowel obstruction. Prominent stool in the colon. No pathologic free fluid. The appendix is not dilated. Lymph nodes: Periportal lymph node measuring 1.6 cm, (2/38). Preaortic node measuring 1.2 cm, (2/53). Multiple additional shotty retroperitoneal lymph nodes. Grossly similar to 2022. Vessels: No infrarenal aortic aneurysm. Patent portal vein. PELVIS Reproductive organs: Prostatomegaly. Bladder: Bladder wall measures 1.8 cm, (2/118). Thickened. No stone. Pelvic lymph nodes: Right pelvic sidewall lymph node measuring 1.1 cm, (2/106), similar. Left pelvic sidewall lymph node measuring 1.1 cm, (2/110), similar. Bones: No aggressive osseous abnormality. Small device. DDD. Other: Tiny umbilical hernia. No inguinal hernia. IMPRESSION: 1. Diffuse bladder wall thickening. Suspect infectious/inflammatory etiology. Malignancy cannot be excluded. 2. Pelvic sidewall and retroperitoneal adenopathy. Indeterminate. Although similar to 2022. Forms: PCP List Discharge Date/Time: 10/02/23 22:25
[2023-10-02 19:14] LABS: BASOPHILS % (AUTO) 0.3 %; EOSINOPHILS % (AUTO) 0.6 %; HCT - HEMATOCRIT 39.4 % (42.0-52.0); HGB - HEMOGLOBIN 13.1 g/dL (14.0-18.0); LYMPHOCYTES # (AUTO) 0.7 10^3/uL (1.5-3.5); LYMPHOCYTES % (AUTO) 9.7 %; MEAN CORPUSCULAR HEMOGLOBIN 29.5 pg (27.0-31.0); MEAN CORPUSCULAR HGB CONC 33.2 g/dL (32.0-36.0); MEAN CORPUSCULAR VOLUME 88.7 fL (80.0-94.0); MEAN PLATELET VOLUME 9.3 fL (7.4-11.4); MONOCYTES # (AUTO) 0.6 10^3/uL (0.0-1.0); MONOCYTES % (AUTO) 8.1 %; NEUTROPHILS # (AUTO) 5.8 10^3/uL (1.5-6.6); NEUTROPHILS % (AUTO) 80.9 %; PLT - PLATELET COUNT 155 10^3/uL (130-450); RED BLOOD COUNT 4.44 10^6/uL (4.70-6.10); RED CELL DISTRIBUTION WIDTH 12.4 % (12.0-15.0); WHITE BLOOD COUNT 7.2 x10^3/uL (4.8-10.8)
[2023-10-02] MEDS ORDERED: iohexoL-300 100 ML VIAL ONE (19:21)
[2023-10-02 19:40] LABS: ALBUMIN 3.5 g/dL (3.2-5.5); ALBUMIN/GLOBULIN RATIO 1.2 (1.0-2.2); ALKALINE PHOSPHATASE 112 IU/L (42-121); ALT ALANINE AMINOTRANSFERASE 179 IU/L (10-60); AST ASPARTATE AMINOTRANSFERASE 106 IU/L (10-42); BILIRUBIN,TOTAL 0.6 mg/dL (0.2-1.0); BUN - BLOOD UREA NITROGEN 10 mg/dL (6-20); CALCIUM 8.6 mg/dL (8.5-10.3); CARBON DIOXIDE - CO2 26 mmol/L (21-32); CHLORIDE 102 mmol/L (101-111); CREATININE 0.6 mg/dL (0.6-1.3); GFR - MDRD 138 (>89); GLUCOSE 339 mg/dL (74-104); POTASSIUM 4.1 mmol/L (3.5-4.5); SODIUM 135 mmol/L (135-145); TOTAL PROTEIN 6.5 g/dL (6.4-8.9)
[2023-10-02 19:45] LABS: LIPASE < 10 U/L (11-82)
[2023-10-02 19:52] LABS: BILIRUBIN,URINE NEGATIVE (NEGATIVE); GLUCOSE, URINE (UA) >=1000 mg/dL (NEGATIVE); KETONES,URINE (UA) 15 mg/dL (NEGATIVE); LEUKOCYTE ESTERASE, URINE TRACE (NEGATIVE); NITRITE,URINE POSITIVE (NEGATIVE); OCCULT BLOOD,URINE LARGE (NEGATIVE); PROTEIN,URINE >=300 mg/dL (NEGATIVE); UROBILINOGEN,URINE 1 (NORMAL) E.U./dL (NORMAL)
[2023-10-02 19:57] LABS: BACTERIA,URINE Rare /HPF (None Seen); CLARITY,URINE TURBID (CLEAR); RBC,URINE TNTC /HPF (0-5); SQUAMOUS EPITHELIAL CELL,UR NONE SEEN (<= Few); WBC,URINE 0-3 /HPF (0-3)
[2023-10-02] MEDS: iohexoL-300 100 ML VIAL IVP ONE (20:06)
[2023-10-02] MEDS: cefTRIAXone 1 GM VIAL IVP STA (20:17)
--- NOTE | 2023-10-02 20:53 | CT Report ---
PROCEDURE: Abdomen/Pelvis W INDICATIONS: abd pain, hematuria CONTRAST: 100ml [id number] TECHNIQUE: After the administration of intravenous contrast, a CT scan of the abdomen and pelvis was performed. Images were recorded and evaluated at appropriate window settings. Reformats: coronal and sagittal. F or radiation dose reduction, the following was used: automated exposure control, adjustment of mA and /or kV according to patient size. COMPARISON: CT abdomen pelvis 08/11/2022. FINDINGS: Image quality: Diagnostic. Lower chest: Unremarkable. Liver: No solid mass. Several small cysts. Gallbladder: No radiopaque stones or wall thickening. Biliary tree: No intrahepatic or extrahepatic dilation, accounting for age. Spleen: No splenomegaly. Small cyst or hemangioma. Pancreas: No pancreatic ductal dilation. Adrenals: No adrenal nodule. 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 No hydronephrosis. No renal cystic lesion which requi res follow up. No solid mass. Stomach, bowel and peritoneum: No bowel obstruction. Prominent stool in the colon. No pathologic free fluid. The appendix is not dilated. Lymph nodes: Periportal lymph node measuring 1.6 cm, (2/38). Preaortic node measuring 1.2 cm, (2/53). Multiple additional shotty retroperitoneal lymph nodes. Grossly similar to 202. Vessels: No infrarenal aortic aneurysm. Patent portal vein. PELVIS Reproductive organs: Prostatomegaly. Bladder: Bladder wall measures 1.8 cm, (2/118). Thickened. No stone. Pelvic lymph nodes: Right pelvic sidewall lymph node measuring 1.1 cm, (2/106), similar. Left pelvic sidewall lymph node measuring 1.1 cm, (2/110), similar. Bones: No aggressive osseous abnormality. Small device. DDD. Other: Tiny umbilical hernia. No inguinal hernia. IMPRESSION: 1. Diffuse bladder wall thickening. Suspect infectious/inflammatory etiology. Malignancy cannot be ex cluded. 2. Pelvic sidewall and retroperitoneal adenopathy. Indeterminate. Although similar to 2022. Reviewed by: Attila Moore MD on 10/02/2023 8:51 PM PDT Approved by: Attila Moore MD on 10/02/2023 8:51 PM PDT Station ID: [id number]
[2023-10-02] MEDS: MORPHINE 2 MG/ML CARPUJECT IVP STA (21:04)
[2023-10-02 22:30] VITALS: BP 164/100; O2SAT 97
== END 2023-10-02 22:25 | disposition home or self-care (01) ==
LOC: EDUNIT# → ED 18:34
DX: N30.01 Acute cystitis with hematuria (principal); I10 Essential (primary) hypertension; E11.9 Type 2 diabetes mellitus without complications; Z79.899 Other long term (current) drug therapy; Z79.4 Long term (current) use of insulin
CPT/HCPCS: 36415; 74177; 80053; 81001; 83690; 85025; 87086; 87181; 96374; 96375; 99283; 99284; Q9967; 81003

== ENCOUNTER 2023-10-03 08:28 | Outpatient (CLI) | payer MEDICAID ==
--- NOTE | 2023-10-03 17:08 | Ultrasound Report ---
PROCEDURE: Abdomen Limited INDICATIONS: HEP C TECHNIQUE: Real-time focused scanning was performed of the abdomen, with image documentation. COMPARISONS: CT of abdomen and pelvis dated 10/02/2023 and 08/11/2022. FINDINGS: Liver: Liver is normal in size. Diffusely increased liver parenchymal echotexture is seen. 1.2 x 0.8 x 1.6 cm hypoechoic nodule in superior and medial periphery of right hepatic lobe is seen and show n o internal vascularity. Gallbladder: There is a stone seen in neck of gallbladder. Possible polyp measures 9 mm in size is se en in fundus of gallbladder wall. Borderline gallbladder wall thickening. No pericholecystic fluid or sonographic Kuhn's sign. Biliary ducts: Intrahepatic bile ducts are non-dilated. Extrahepatic bile duct caliber measures 4.6 mm. Normal is 6-7 mm or less in diameter, or 10 mm or less post-cholecystectomy. Pancreas: Visualized portions of the pancreas are sonographically normal. Right kidney: Normal in size and echotexture. Right kidney measures 11.0 cm long. No hydronephrosis or nephrolithiasis. No solid masses. No complex renal cystic lesions which require follow-up. IVC: Intrahepatic inferior vena cava is patent. Miscellaneous: No free abdominal fluid. IMPRESSION: 1. Hepatic steatosis. Indeterminant solid nodule in right hepatic lobe as described above and show no significant internal vascularity suggests sonographic follow-up. 2. Mildly thickened gallbladder wall with possible polyp versus mass involving fundus of gallbladder. Sonographic follow-up is recommended. Cholelithiasis. No sonographic evidence of acute cholecystitis . 3. No biliary ductal dilatation. Reviewed by: Curry Zuñiga MD on 10/03/2023 5:06 PM PDT Approved by: Curry Zuñiga MD on 10/03/2023 5:06 PM PDT Station ID: [id number]
== END 2023-10-03 08:29 | disposition home or self-care (01) ==
LOC: DI 08:28
PROVIDERS: ATTEND Physician Assistant
DX: B18.2 Chronic viral hepatitis C (principal); K76.0 Fatty (change of) liver, not elsewhere classified; K80.20 Calculus of gallbladder without cholecystitis without obstruction

== ENCOUNTER 2023-10-20 14:48 | Outpatient (CLI) | payer MEDICAID ==
[2023-10-20 17:45] LABS: BASOPHILS % (AUTO) 0.8 %; EOSINOPHILS # (AUTO) 0.1 10^3/uL (0.0-0.7); EOSINOPHILS % (AUTO) 2.3 %; HCT - HEMATOCRIT 41.3 % (42.0-52.0); HGB - HEMOGLOBIN 13.7 g/dL (14.0-18.0); LYMPHOCYTES # (AUTO) 0.8 10^3/uL (1.5-3.5); LYMPHOCYTES % (AUTO) 16.5 %; MEAN CORPUSCULAR HEMOGLOBIN 30.2 pg (27.0-31.0); MEAN CORPUSCULAR HGB CONC 33.2 g/dL (32.0-36.0); MEAN PLATELET VOLUME 10.2 fL (7.4-11.4); MONOCYTES # (AUTO) 0.4 10^3/uL (0.0-1.0); MONOCYTES % (AUTO) 9.1 %; NEUTROPHILS # (AUTO) 3.4 10^3/uL (1.5-6.6); NEUTROPHILS % (AUTO) 70.3 %; PLT - PLATELET COUNT 188 10^3/uL (130-450); RED BLOOD COUNT 4.54 10^6/uL (4.70-6.10); RED CELL DISTRIBUTION WIDTH 12.9 % (12.0-15.0); WHITE BLOOD COUNT 4.9 x10^3/uL (4.8-10.8)
[2023-10-20 18:21] LABS: THYROID STIMULATING HORMONE 0.24 uIU/mL (0.34-5.60)
[2023-10-20 18:27] LABS: CREATININE,URINE 26.3 mg/dL
[2023-10-20 18:28] LABS: CHOL/HDL RATIO 3.5 (<5.0); CHOLESTEROL 147 mg/dL; HDL CHOLESTEROL 42 mg/dL; LDL CHOLESTEROL,CALCULATED 77 mg/dL; LDL/HDL RATIO 1.8 (<3.6); TRIGLYCERIDES 139 mg/dL (48-352); VLDL CHOLESTEROL 28 mg/dL
[2023-10-20 18:35] LABS: ALBUMIN 3.4 g/dL (3.2-5.5); ALKALINE PHOSPHATASE 109 IU/L (42-121); ALT ALANINE AMINOTRANSFERASE 134 IU/L (10-60); AST ASPARTATE AMINOTRANSFERASE 90 IU/L (10-42); BILIRUBIN,TOTAL 0.3 mg/dL (0.2-1.0); BUN - BLOOD UREA NITROGEN 11 mg/dL (6-20); CARBON DIOXIDE - CO2 25 mmol/L (21-32); CHLORIDE 102 mmol/L (101-111); CREATININE 0.7 mg/dL (0.6-1.3); GFR - MDRD 116 (>89); GLUCOSE 417 mg/dL (74-104); POTASSIUM 3.9 mmol/L (3.5-4.5); SODIUM 135 mmol/L (135-145); TOTAL PROTEIN 6.7 g/dL (6.4-8.9)
[2023-10-20 19:24] LABS: ESTIMATED AVERAGE GLUCOSE 372 mg/dL (70-100); HEMOGLOBIN A1c% 14.6 % (4.27-6.07)
== END 2023-10-20 14:49 | disposition home or self-care (01) ==
LOC: LAB.N 14:48
PROVIDERS: ATTEND Physician Assistant
DX: E11.65 Type 2 diabetes mellitus with hyperglycemia (principal); R94.5 Abnormal results of liver function studies; R06.09 Other forms of dyspnea; Z12.5 Encounter for screening for malignant neoplasm of prostate; M25.50 Pain in unspecified joint; B18.2 Chronic viral hepatitis C
CPT/HCPCS: 36415; 80050; 80061; 82043; 82570; 83036; 83721; 83880; 84153; 84439; 85651; 86140; 87522

== ENCOUNTER 2023-11-12 08:03 | Outpatient (CLI) | payer MEDICAID | END 2023-11-12 08:04 | disposition home or self-care (01) | LOC: DI 08:03 | PROVIDERS: ATTEND Physician Assistant | DX: R06.09 Other forms of dyspnea (principal) | CPT/HCPCS: 93307 ==

== ENCOUNTER 2023-11-18 08:00 | Outpatient (CLI) | payer MEDICAID | END 2023-11-18 23:59 | disposition home or self-care (01) | LOC: LAB.N 08:00 | PROVIDERS: ATTEND Physician Assistant Medical | DX: R30.0 Dysuria (principal) | CPT/HCPCS: 87086 ==

== ENCOUNTER 2023-11-25 08:00 | Outpatient (CLI) | payer MEDICAID | END 2023-11-25 23:59 | disposition home or self-care (01) | LOC: LAB.N 08:00 | PROVIDERS: ATTEND Physician Assistant Medical | DX: R30.0 Dysuria (principal) | CPT/HCPCS: 87086 ==

== ENCOUNTER 2023-11-26 19:57 | Outpatient (CLI) | payer MEDICAID | END 2023-11-26 23:59 | disposition short-term general hospital (02) | LOC: EMS 19:57 | DX: R10.32 Left lower quadrant pain (principal); R10.814 Left lower quadrant abdominal tenderness; R10.813 Right lower quadrant abdominal tenderness; R30.9 Painful micturition, unspecified; K59.00 Constipation, unspecified | CPT/HCPCS: A0425; A0427; A0999 ==

== ENCOUNTER 2023-12-17 11:56 | Emergency (ER) | payer MEDICAID ==
--- NOTE | 2023-12-17 12:27 | ED Physician Documentation ---
History of Present Illness - Stated complaint Stated Complaint: POST SX PX/NAUSEA - Chief complaint Chief Complaint: General - History obtained from History obtained from: Patient - History of Present Illness Timing: Prior to arrival - Additonal information Additional information: Patient is a 58-year-old male presenting to emergency department with nausea dysuria and hematuria. He notes symptoms started yesterday but progressively worsened today. Patient was recently seen at [facility] for scheduled cystoscopy after having persistent hematuria. Patient notes he had some tissue removed but does not specifically recall he was started on antibiotics after and is still taking them. He notes he had persistent penile pain after but today and yesterday developed hematuria and burning with his urine. He denies any fevers or chills associated with his symptoms only persistent nausea. He denies any abdominal pain or epigastric pain no pain radiating to his lower back. He has been compliant with antibiotics at home but cannot recall what he was started on by the urologist. He can also not recall the urologist he saw for the cystoscopy procedure. PD PAST MEDICAL HISTORY - Past Medical History Past Medical History: Yes Cardiovascular: Hypertension Respiratory: None Neuro: None Endocrine/Autoimmune: Type 2 diabetes GI: GI bleed, Ulcers, Hepatitis : None HEENT: None Psych: Depression, Anxiety, Panic attacks, Post traumatic stress disorder Musculoskeletal: None Derm: None - Past Surgical History Past Surgical History: No - Present Medications Home Medications: Ambulatory Orders Medication Instructions Recorded Confirmed PARoxetine [Paxil] 40 mg PO DAILY tablet 11/25/16 09/06/23 Pantoprazole [Protonix] 40 mg PO BID #60 tablet 11/25/16 09/06/23 Buspirone HCl 30 mg PO BID #60 tablet 05/04/19 09/06/23 Citalopram Hydrobromide 20 mg PO DAILY #10 tablet 07/10/19 09/06/23 [Citalopram HBr] QUEtiapine [SEROquel] 100 mg PO QPM #10 tablet 07/10/19 09/06/23 lisinopriL [Lisinopril] 5 mg PO DAILY #10 tablet 07/10/19 12/17/23 Fluticasone Propionate 15.8 ml NS BID 30 Days #1 spray 02/26/21 09/06/23 Insulin Glargine [Lantus Solostar] 20 units SUBQ DAILY 02/20/22 Cefpodoxime Proxetil [Vantin] 100 mg PO Q12H #14 tablet 10/02/23 Cetirizine [ZyrTEC] 10 mg PO DAILY 12/17/23 12/17/23 Furosemide [Lasix] 20 mg PO DAILY 12/17/23 12/17/23 - Allergies Allergies/Adverse Reactions: Allergies Allergy/AdvReac Type Severity Reaction Status Date / Time codeine AdvReac Emesis Verified 12/17/23 12:05 - Social History Does the pt smoke?: No Smoking Status: Never smoker Does the pt drink ETOH?: No Does the pt have substance abuse?: No - Immunizations Immunizations are current?: Yes - POLST Patient has POLST: No PD ED PE NORMAL - Vitals Vital signs reviewed: Yes - General General: Alert and oriented X 3 - HEENT HEENT: Atraumatic, PERRL - Neck Neck: Supple, no meningeal sign - Cardiac Cardiac: RRR, No murmur, No gallop, No rub - Respiratory Respiratory: No respiratory distress, Clear bilaterally - Abdomen Abdomen: Normal bowel sounds - Male Male : Cigarette Vendor present, Other (No obvious deformity no penile discharge no penile bleeding no signs of irritation. Testicles nontender on examination no palpable mass.) - Back Back: No CVA TTP - Derm Derm: Normal color, Warm and dry, No rash - Extremities Extremities: No deformity - Neuro Neuro: Alert and oriented X 3 Results - Vitals Vitals: Vital Signs - 24 hr 12/17/23 12/17/23 12/17/23 11:58 13:07 15:00 Temperature 36.6 C Heart Rate 103 H 95 94 Respiratory 16 20 18 Rate Blood Pressure 122/83 H 129/93 H 124/92 H O2 Saturation 100 94 97 12/17/23 12/17/23 17:00 17:45 Temperature 37.1 C Heart Rate 82 Respiratory 16 Rate Blood Pressure 122/85 H 117/84 H O2 Saturation 99 100 Oxygen O2 Source Room air - Labs Labs: Laboratory Tests 12/17/23 12/17/23 12/17/23 13:00 13:00 13:34 WBC 5.0 RBC 4.82 Hgb 14.7 Hct 43.3 MCV 89.8 MCH 30.5 MCHC 33.9 RDW 14.5 Plt Count 213 MPV 9.1 Neut # (Auto) 3.7 Lymph # (Auto) 0.6 L [place] # (Auto) 0.5 Eos # (Auto) 0.2 Baso # (Auto) 0.1 Absolute Nucleated RBC 0.00 Nucleated RBC % 0.0 Sodium 129 L Potassium 5.0 H Chloride 93 L Carbon Dioxide 29 Anion Gap 7.0 BUN 27 H Creatinine 0.8 Estimated GFR (MDRD) 99 Glucose 541 H* Calcium 10.1 Total Bilirubin 0.5 AST 89 H ALT 122 H Alkaline Phosphatase 164 H Total Protein 8.6 Albumin 4.3 Globulin 4.3 H Albumin/Globulin Ratio 1.0 Lipase 19 Urine Color Urine Clarity Urine pH Ur Specific [place] Urine Protein Urine Glucose (UA) Urine Ketones Urine Occult Blood Urine Nitrite Urine Bilirubin Urine Urobilinogen Ur Leukocyte Esterase Urine RBC Urine WBC Ur Squamous Epith Cells Urine Bacteria Ur Microscopic Review Urine Culture Comments 12/17/23 14:30 WBC RBC Hgb Hct MCV MCH MCHC RDW Plt Count MPV Neut # (Auto) Lymph # (Auto) [place] # (Auto) Eos # (Auto) Baso # (Auto) Absolute Nucleated RBC Nucleated RBC % Sodium Potassium Chloride Carbon Dioxide Anion Gap BUN Creatinine Estimated GFR (MDRD) Glucose Calcium Total Bilirubin AST ALT Alkaline Phosphatase Total Protein Albumin Globulin Albumin/Globulin Ratio Lipase Urine Color YELLOW Urine Clarity HAZY Urine pH 6.0 Ur Specific [place] 1.015 Urine Protein NEGATIVE Urine Glucose (UA) >=1000 H Urine Ketones NEGATIVE Urine Occult Blood LARGE H Urine Nitrite NEGATIVE Urine Bilirubin NEGATIVE Urine Urobilinogen 0.2 (NORMAL) Ur Leukocyte Esterase NEGATIVE Urine RBC TNTC H Urine WBC 0-3 Ur Squamous Epith Cells NONE SEEN Urine Bacteria Few Ur Microscopic Review INDICATED Urine Culture Comments NOT INDICATED PD Medical Decision Making - ED course Complexity details: reviewed old records, reviewed results ED course: Patient is a 58-year-old male presenting to the emergency department with nausea and hematuria. Patient presents with symptoms starting just a few days ago. He was recently [facility] for a cystoscopy. He does not recall what was performed at that time. He notes he is able to urinate but has large amount of pain and blood clots when he is urinating. He notes his pain has been persistent since the procedure was done but clots resolved after the procedure and have returned. He feels he is able to completely empty his bladder. Labs here in the emergency department show no leukocytosis. No signs of UTI no leukocytes or nitrites in the urine. Urine did show a large amount of blood and erythrocytes in the urine. Patient has some elevation in his LFTs but this appears stable from labs obtained 603 no significant increase no elevation in bilirubin. Patient noted to be hyperglycemic in the 500s with his blood sugar. However no anion gap mild hyponatremia at 129 but calculated accounting for hyperglycemia is within normal range. Mild hyperkalemia at 5.0 however most likely due to patient's high blood sugar insulin given here in the emergency department with IV fluids for correction. No signs of anion gap no signs of DKA.Patient notes he has been compliant with his insulin at home but does not appear to be checking his blood sugars. Patient blood sugar down trended to the 300s after 1 unit of IV fluids and 10 units of insulin regular. Patient given another liter of fluids here in the emergency department he is able to tolerate p.o. here in the emergency department. I did try to get in contact with urology at [place] however no one was on-call for urology today. I did Received a fax of paperwork [facility] He was noted to have prostate abscess that was drained and thoroughly cleaned patient was started on antibiotics on discharge. He is currently still taking these antibiotics, but is unable to recall what the antibiotics are called. Patient has blood sugars improved to 281 here in the emergency department.Patient instructed to follow-up with his PCP for persistently elevated blood sugars his insulin was recently changed while he was admitted at [place] [facility] patient instructed to continue with insulin detemir 20 units twice daily with his fast acting between meals.. Patient was given the follow-up number for his urologist at [place] [facility] and instructed on the importance of follow-up to ensure resolution of symptoms. Patient instructed to return with any difficulty urinating abdominal pain nausea vomiting fevers or any new or worsening symptoms. Departure - Departure Disposition: 01 Home, Self Care Clinical Impression: Hyperglycemia due to type 2 diabetes mellitus, Hematuria, Dysuria Condition: Good Instructions: ED Hyperglycemia Diabetic Follow-Up: AMARA FLANAGAN MD [Physician No Access] - Comments: You were seen here in the emergency department for your blood in your urine your findings are consistent with your recent cystoscopy bleeding after this is not unusual and you have no recurrent signs of UTI your labs were remarkable for elevated blood sugars here in the emergency department. You need to continue taking your insulin at home and twice a day insulin detemir 20 units as well as your fast acting at home. Return with any nausea, vomiting, fevers, difficulty urinating worsening clots in your urine or any new or worsening symptoms. You need to follow-up with urology I have attached the name of your urologist to the discharge packet. Forms: PCP List
[2023-12-17 13:05] LABS: BASOPHILS # (AUTO) 0.1 10^3/uL (0.0-0.1); EOSINOPHILS # (AUTO) 0.2 10^3/uL (0.0-0.7); EOSINOPHILS % (AUTO) 3.2 %; HCT - HEMATOCRIT 43.3 % (42.0-52.0); HGB - HEMOGLOBIN 14.7 g/dL (14.0-18.0); LYMPHOCYTES # (AUTO) 0.6 10^3/uL (1.5-3.5); LYMPHOCYTES % (AUTO) 11.3 %; MEAN CORPUSCULAR HEMOGLOBIN 30.5 pg (27.0-31.0); MEAN CORPUSCULAR HGB CONC 33.9 g/dL (32.0-36.0); MEAN CORPUSCULAR VOLUME 89.8 fL (80.0-94.0); MEAN PLATELET VOLUME 9.1 fL (7.4-11.4); MONOCYTES # (AUTO) 0.5 10^3/uL (0.0-1.0); MONOCYTES % (AUTO) 10.1 %; NEUTROPHILS # (AUTO) 3.7 10^3/uL (1.5-6.6); NEUTROPHILS % (AUTO) 73.6 %; PLT - PLATELET COUNT 213 10^3/uL (130-450); RED BLOOD COUNT 4.82 10^6/uL (4.70-6.10); RED CELL DISTRIBUTION WIDTH 14.5 % (12.0-15.0)
[2023-12-17] MEDS: ONDANSETRON 4 MG/2 ML VIAL IVP STA (13:06)
[2023-12-17 13:23] LABS: ALBUMIN 4.3 g/dL (3.2-5.5); BILIRUBIN,TOTAL 0.5 mg/dL (0.2-1.0); CALCIUM 10.1 mg/dL (8.5-10.3); CREATININE 0.8 mg/dL (0.6-1.3); TOTAL PROTEIN 8.6 g/dL (6.4-8.9)
[2023-12-17 14:41] LABS: BILIRUBIN,URINE NEGATIVE (NEGATIVE); CLARITY,URINE HAZY (CLEAR); GLUCOSE, URINE (UA) >=1000 mg/dL (NEGATIVE); KETONES,URINE (UA) NEGATIVE (NEGATIVE); LEUKOCYTE ESTERASE, URINE NEGATIVE (NEGATIVE); NITRITE,URINE NEGATIVE (NEGATIVE); OCCULT BLOOD,URINE LARGE (NEGATIVE); PROTEIN,URINE NEGATIVE (NEGATIVE); UROBILINOGEN,URINE 0.2 (NORMAL) E.U./dL (NORMAL)
[2023-12-17 14:48] LABS: BACTERIA,URINE Few /HPF (None Seen); RBC,URINE TNTC /HPF (0-5); SQUAMOUS EPITHELIAL CELL,UR NONE SEEN (<= Few); WBC,URINE 0-3 /HPF (0-3)
[2023-12-17] MEDS: SODIUM CHLORIDE 0.9% 1,000 ML IV STA ×2 (15:25→16:40)
[2023-12-17] MEDS: INSULIN REGULAR, HUMAN 300 UNIT/3 ML PEN IVP STA (15:31)
[2023-12-17 17:56] VITALS: BP 117/84; O2SAT 100
== END 2023-12-17 18:37 | disposition home or self-care (01) ==
LOC: ED 11:56
DX: R31.9 Hematuria, unspecified (principal); R30.0 Dysuria; E11.65 Type 2 diabetes mellitus with hyperglycemia; Z79.4 Long term (current) use of insulin; Z98.890 Other specified postprocedural states
CPT/HCPCS: 36415; 51798; 80053; 81001; 81003; 83690; 85025; 87086; 96361; 96374; 99284